=== PATIENT | female | born 1945 | race Caucasian/White ===

== ENCOUNTER 2017-04-21 09:06 | Inpatient (IN) ==
[2017-04-21] MEDS ORDERED: *HR* HYDROcodone/Acet 5/325 mg TABLET PO ONE (09:11)
--- NOTE | 2017-04-21 09:19 | Emergency Department Note ---
Disposition Clinical Impression: Left hip pain Fall Qualifiers: Encounter type: initial encounter Qualified Code(s): W19.XXXA - Unspecified fall, initial encounter Left wrist fracture Qualifiers: Encounter type: initial encounter Fracture type: closed Qualified Code(s): S62.102A - Fracture of unspecified carpal bone, left wrist, initial encounter for closed fracture Disposition: Home, Self-Care Condition: Good Instructions: Fall Prevention for Older Adults (ED) Reasons to Return/Additional Instructions: Please follow closely with your primary care provider. Please take all medications as they are prescribed. If you are concerned about your medical condition or if your symptoms change please return immediately to the emergency room for repeat evaluation. Please follow the return precautions that were discussed in great detail here in the emergency room prior to you being discharged home. Please take all of your home medications as they are prescribed. Please use rest ice elevation and then a compressive dressing was applied. Please follow-up with the orthopedic physician for outpatient evaluation and casting Referrals: NO,PCP [Primary Care Provider] - [facility] [Outside] [facility] [Outside] Hiram Gil MD [Partnered Physician] - Forms: ED Satisfaction Letter Time of Disposition: 09:57 Fall HPI - General Chief Complaint: ED Fall Stated Complaint: fall Time Seen by Provider: 04/21/17 09:09 Source: EMS Mode of arrival: EMS Limitations: no limitations Nursing Notes Reviewed: Yes Vital Signs Reviewed: Yes - History of Present Illness HPI Narrative: Patient presents emergency room after falling at home. She was walking across her kitchen and tripped over carpet falling hitting her left hip and left wrist. She is injured ribs in the past and required surgery. She was concerned because she had pain with movement and wanted to be evaluated. No other symptoms or complaints at this time Onset (ago): Just MEDICAL COLLECTIONS REPRESENTATIVE Fall From: standing Fall Witnessed: yes Place Fall Occurred: home Loss of Consciousness: none Prolonged Down Time?: no Symptoms Prior to Fall: none Context: tripped/slipped Location of injury - extremities: Left: hand, hip Severity: mild Quality: aching Associated symptoms (after fall): Reports: denies - Related Data Home Medications Medication Instructions Recorded Confirmed Albuterol Sulfate [Albuterol 90 mcg IH Q4HR PRN 06/15/15 01/31/17 Inhaler] Budesonide/Formoterol 160/4.5 2 puff IH BIDR 06/15/15 01/31/17 [Symbicort 160/4.5] Duloxetine HCl [Cymbalta] 60 mg PO DAILY 06/15/15 01/31/17 Gabapentin [Neurontin] 300 mg PO TID 06/15/15 01/31/17 Nitroglycerin [Nitrostat] 0.4 mg SL Q5M PRN 06/15/15 01/31/17 Bisacodyl [Dulcolax] 5 mg PO DAILY PRN 03/22/16 01/31/17 Fenofibrate Nanocrystallized 145 mg PO DAILY 03/22/16 01/31/17 [Tricor] Lisinopril [Zestril] 20 mg PO BID 03/22/16 01/31/17 Oxycodone HCl 5 mg PO Q6H PRN 03/22/16 01/31/17 Omeprazole [PriLOSEC] 40 mg PO BID 05/18/16 01/31/17 Previous Rx's Medication Instructions Recorded Aspirin 81 mg PO DAILY #30 tab.chew 02/04/16 Atorvastatin [Lipitor] 40 mg PO HS #30 tablet 02/04/16 Ranolazine [Ranexa] 500 mg PO BID #60 tab.er.12h 05/21/16 Isosorbide MONOnitrate (24 HR) 120 mg PO DAILY #60 tab.er.24h 05/24/16 [Imdur] Metoprolol Succinate 100 mg PO DAILY #30 tab.er.24h 05/24/16 cloNIDine HCl [CloNIDine HCl] 0.2 mg PO Q8H #90 tablet 08/19/16 Azithromycin [Azithromycin 6-Tab 250 mg PO PER PKG DI #6 tab 01/31/17 Pack] Allergies Allergy/AdvReac Type Severity Reaction Status Date / Time Erythromycin Base Allergy Vomiting Verified 01/31/17 12:14 Penicillins [PCN] Allergy Rash Verified 01/31/17 12:14 codeine AdvReac Nausea Verified 01/31/17 12:14 indapamide [From Lozol] AdvReac See Verified 01/31/17 12:14 Comments All systems ED: reviewed and negative except as stated. Constitutional: Denies: fever, chills Cardiovascular: Denies: chest pain, palpitations, dyspnea on exertion Respiratory: Denies: cough, dyspnea, wheezes Gastrointestinal: Denies: nausea, vomiting, diarrhea Musculoskeletal: Denies: back pain Neurological: Denies: headache Hematological/Lymphatic: Denies: easy bleeding Allergic/Immunologic: Denies: facial swelling, urticaria Fall PMH - Past Medical History Medical history: Reports: atrial fibrillation, CHF, COPD, coronary artery disease, diabetes, GERD, hyperlipidemia, hypertension, myocardial infarction Surgical history: Reports: angioplasty/stent, appendectomy, hysterectomy, other Psychiatric history: Reports: depression 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 Absent: tenderness - Chest Chest inspection: Present: normal inspection, symmetric chest wall rise. Absent : tenderness - Respiratory Respiratory exam: Present: normal lung sounds bilaterally - Cardiovascular Cardiovascular exam: Present: regular rate, normal rhythm, normal heart sounds - Abdominal Exam Abdominal exam: Present: soft, Non-Tender, normal bowel sounds. Absent: tenderness, distention, guarding, rebound, rigidity - Extremities Exam Extremities exam: Present: normal inspection, full ROM, tenderness, normal capillary refill, pedal edema (+2 to the knee) - Back Exam Back exam: Present: normal inspection, full ROM, tenderness - Neurological Exam Neurological exam: Present: alert, oriented X3, CN II-XII intact - Skin Skin exam: Present: warm, dry, intact, normal color Course Course Narrative: Patient seen and examined at the time of arrival. See history of present illness. 71-year-old female presents from home by EMS for evaluation of a mechanical fall. Walking across her kitchen today she tripped on a carpet falling sideways hitting her left wrist and her left hip on the ground. Patient denies any other symptoms or issues prior to the event today. She denied lightheadedness, chest pain, palpitations, recent illnesses, fevers, chills, nausea vomiting or diarrhea, chest pain or shortness of breath. On presentation here patient is alert and oriented 3 speaking in full sentences. She has no visible signs of traumatic injury no bleeding noted on exam. She has her left wrist wrapped and she was on the cot complaining of minor left hip pain. Physical exam is otherwise benign. Head is atraumatic pupils are equal round and reactive to light. Patient opens and closes the jaw without any issue. She has no midline tenderness to the cervical thoracic or lumbar spine. She moves her neck in full range of motion flexion extension with no pain. She has no tenderness over the bilateral shoulder girdle shows full range of motion of the shoulders and elbows and the right wrist. Left wrist is limited range of motion secondary to discomfort but no other visible deformity or injury. Pulses and sensation are intact in all 4 extremities. The chest wall does not show any crepitus or deformity her heart and lungs are clear. Abdomen is soft nontender nondistended. Pelvis appears to be stable left hip has tenderness over the medial aspect of the groin area but no gross deformity or injury. Patient has normal straight leg raise bilaterally. She has pitting edema +2 up to the knee but does not describe this as being abnormal for her. No other visible signs of trauma or injury at this point. Patient will have imaging of the head secondary to unknown head injury even though she does not have loss of consciousness. She was on a blood thinner but supposedly it stopped 6 months ago. Patient will imaging of the left wrist in the left hip to address any other underlying etiology. Patient is resting comfortably in bed at this time. First dose oral pain medication given. Patient also EKG looking for other underlying cardiac etiology otherwise stable exam Blood pressure was elevated on presentation but she did not take her home meds. Disposition pending workup and treatment course. The patient confirmed the previous history of present illness - Reevaluation(s) Reevaluation #1: Left wrist is fractured of the distal radius and ulna. Splint reapplied. There is no specific signs of angulation is slightly impacted otherwise the joint mortise appears to be stable. Patient will be splinted and then recommended for follow-up with orthopedics. Hip and pelvis appears to be stable with a stable appearing previous hip implant. No signs of acute fracture or dislocation. Splint applied at the bedside by myself with a reverse sugar tong with good sensation intact after the event. Patient provided a sling for home. [id number] female She was advised to follow -up with orthopedics tomorrow. Patient to be ambulated at this time a shunt to take oral Tylenol and Motrin at home for symptoms as well as use ice. No narcotic to be given at this time secondary to concern for mentation and somnolence and based on the patient's age Time: 09:53 Reevaluation #2: Patient had pain with ambulation. Imaging the pelvis and the hip to be done by CT scan at this time. Time: 10:48 Reevaluation #3: Patient was unable to bear weight without significant distress and limping gait. There is concern for her falling home and not being able to use a walker secondary to the broken wrist. At this point turn patient will be admitted for pain control and therapy. Discussed this with the hospitalist Dr. Giron. No other recommendations or issues at this time. Patient will be admitted to hospital for pain control and evaluation Time: 12:40 Vital Signs Temperature 98.9 F 04/21/17 09:08 Pulse Rate 69 04/21/17 09:08 Respiratory Rate 18 04/21/17 09:08 Blood Pressure 186/96 04/21/17 09:08 O2 Sat by Pulse Oximetry 97 04/21/17 09:08 Temperature 98.9 F 04/21/17 09:08 Pulse Rate 69 04/21/17 09:08 Respiratory Rate 18 04/21/17 09:08 Blood Pressure 186/96 04/21/17 09:08 O2 Sat by Pulse Oximetry 97 04/21/17 09:08 Oxygen Delivery Oxygen Delivery Room Air Procedures - Orthopedic Splinting/Casting Injury #1 Side: left Upper Extremity Injury Location: wrist Upper Extremity Immobilizer: sugar tong splint Additional Comments: Capillary refill intact after the splint was applied she had good sensation and motor function in the affected fingers and hands Fall - MDM Narrative Medical decision making narrative: Mechanical fall, left wrist injury, left hip pain - Medical Records Medical records reviewed: Yes I reviewed the patient's medical records. - Radiology Data Radiology results reviewed: Yes I reviewed the patient's radiology results. Left distal radius and ulna fracture left hip is stable. Does not show any acute bleed or injury - EKG Data EKG attestation: Yes I reviewed and interpreted this EKG.
[2017-04-21] MEDS ORDERED: Naloxone 0.4 MG/ML INJ IVP PRN (13:26)
[2017-04-21] MEDS ORDERED: Acetaminophen 325 MG TABLET PO PRN (13:26)
[2017-04-21] MEDS ORDERED: *HR* Dextrose 50 % in Water (Syg) 50 ML SYRINGE IVP PRN (13:30)
[2017-04-21] MEDS ORDERED: Dextrose Gel 15 GM PO PRN ×2 (13:30)
[2017-04-21] MEDS ORDERED: D5% in Water 1,000 ML IVC PRN (13:30)
--- NOTE | 2017-04-21 13:48 | Internal Med History&Physical ---
Date of Encounter: 04/21/17 Time of Encounter: 13:31 Assessment and Plan (1) Hip fracture, left Current visit: Yes Status: Acute Patient suffered a mechanical fall at home landed on her left side and is complaining of left hip pain. Patient reports pain with movement, and on able to bear weight. CT of the left hip showed acute subdural traumatic nondisplaced fracture of the anterior cortex of the greater trochanter. Orthopedic surgeon consult by emergency department, reported fracture is nonsurgical. Pain control with when necessary Nunda. PT and OT consults. Follow-up with orthopedics as an outpatient Qualifiers: Encounter type: initial encounter Fracture type: closed Qualified Code(s) : S72.002A - Fracture of unspecified part of neck of left femur, initial encounter for closed fracture (2) Fall Current visit: Yes Status: Acute Patient reports she tripped over a rug in her kitchen and fell on her left side. She denies any lightheadedness or dizziness prior to fall. PT and OT consults. Qualifiers: Encounter type: initial encounter Qualified Code(s): W19.XXXA - Unspecified fall, initial encounter (3) Left wrist fracture Current visit: Yes Status: Acute Patient suffered a mechanical fall at home, reporting pain in her left wrist. X -ray of the left wrist showed a transverse mildly displaced fracture of the distal radial metaphysis and nondisplaced fracture of the distal ulnar metaphysis. Patient's arm was splinted and wrapped by the emergency department. She has sensation movement and capillary refill in fingers of left hand. Pain control with when necessary Nunda. Follow-up with orthopedics as an outpatient. Qualifiers: Encounter type: initial encounter Fracture type: closed Qualified Code(s) : S62.102A - Fracture of unspecified carpal bone, left wrist, initial encounter for closed fracture (4) DM (diabetes mellitus), type 2 Current visit: Yes Status: Chronic Well controlled with hemoglobin A1c of 8.7 at last check in November. Recheck hemoglobin A1c. Patient reports she is "trying to get away from taking insulin " and watching what she eats. Check blood sugars before meals at bedtime Diabetic heart healthy diet Sliding scale insulin before meals at bedtime Hypoglycemic protocol Qualifiers: Diabetes mellitus complication status: with kidney complications Diabetes mellitus complication detail: with chronic kidney disease Diabetes mellitus half-way insulin use: unspecified medical terminologist insulin use status Chronic kidney disease stage: stage 3 (moderate) Qualified Code(s): E11.22 - Type 2 diabetes mellitus with diabetic chronic kidney disease; N18.3 - Chronic kidney disease, stage 3 (moderate) (5) Hypertension Current visit: Yes Status: Chronic Patient's blood pressure not well-controlled on arrival, however patient did not take her morning medications, and pain may have been contributing. Continue home doses of medications and continue to monitor blood pressure. Qualifiers: Hypertension type: essential hypertension Qualified Code(s): I10 - Essential (primary) hypertension (6) Tobacco abuse Current visit: Yes Status: Chronic Patient continues to smoke 1 pack per day. Smoking cessation encouraged. Patient not ready to quit at this time. Nicotine patch, smoking cessation education ordered. (7) History of GI bleed Current visit: No Status: Resolved (8) DVT prophylaxis Current visit: Yes Status: Acute sequential compression devices Patient with recent history of GI bleed, and will not give pharmacologic prophylaxis. Internal Medicine - H&P: HPI Chief complaint: fall, left wrist and left hip pain Admitted From: Emergency Dept Plans for Post Hospital Care: Home History of present illness: Ms. Nur is a 71 year old female with hypertension, hyperlipidemia, type 2 diabetes, coronary artery disease status post stent placement, atrial fibrillation, COPD, CHF, CAD, history of GI bleed presented to the emergency department today after suffering a mechanical fall at home, and complaining of pain in her left wrist and left hip. Patient reports that she was walking in her kitchen and tripped over a rug, and had immediate pain in her left hip, little bit later she noticed that her left wrist was hurting as well. She denies any lightheadedness, chest pain, palpitations, shortness of breath, nausea, vomiting, abdominal pain, fever, chills, sweats. Evaluation in the emergency department included a left wrist x-ray which showed transverse mildly displaced fracture of the distal radial metaphysis as well as nondisplaced fracture of the distal ulnar metaphysis. X-ray of the hips was stable, however when patient ambulated she was having pain and was unable to bear weight so a CT of that left hip was obtained. CT showed acute saddle traumatic nondisplaced fracture of anterior cortex of the greater trochanter. Dr. Gil of orthopedics was consulted and reviewed the images and felt these were nonsurgical fractures. Patient admitted for pain control, and risk of falls. On exam, patient resting comfortably, in no acute distress. She is alert and oriented. Heart has regular rate and rhythm, lungs are clear bilaterally to auscultation. Her left wrist is splinted and wrapped, she does have sensation, movement and capillary refill in her left fingertips. She has trace edema in bilateral lower extremities. Mild tenderness to palpation over left hip. She reports increased pain and movement of her left hip. Past Med Surg Social Fam HX - Past Medical History Medical history: atrial fibrillation, CHF, COPD, coronary artery disease, diabetes, GERD, hyperlipidemia, hypertension, myocardial infarction, renal disease Psychiatric history: depression - Past Surgical History Surgical History: angioplasty/stent, appendectomy, hysterectomy, orthopedic, other (back, ankle), other - Social History Smoking Status: Current every day smoker Packs per day: 1 Smokeless Tobacco Status: No Alcohol use: none Drug use: none - Family History Father Adopted: No Family Member Ethnicity: Non- Living Status: Hx Family Cardiac Disorders: Yes (heart disease and heart attack) Hx Family Respiratory Disorders: Yes Hx Family Cancer: Yes (Lung cancer) Hx Family GI Disorders: No Hx Family Endocrine Disorder: Yes Hx Family Neuromuscular Disorders: No Hx Family Neurologic Disorders: No Hx Family HEENT Disorders: No Hx Family Autoimmune Disorders: No Mother Adopted: No Living Status: Hx Family Cardiac Disorders: Yes Hx Family Endocrine Disorder: Yes (Diabetes) Internal Medicine - H&P: Meds Albuterol Sulfate [Albuterol Inhaler] 90 mcg IH Q4HR PRN 06/15/15 [History] Budesonide/Formoterol 160/4.5 [Symbicort 160/4.5] 2 puff IH BIDR 06/15/15 [ History] Duloxetine HCl [Cymbalta] 60 mg PO DAILY 06/15/15 [History] Gabapentin [Neurontin] 300 mg PO TID 06/15/15 [History] Nitroglycerin [Nitrostat] 0.4 mg SL Q5M PRN 06/15/15 [History] Aspirin 81 mg PO DAILY #30 tab.chew 02/04/16 [Rx] Atorvastatin [Lipitor] 40 mg PO HS #30 tablet 02/04/16 [Rx] Fenofibrate Nanocrystallized [Tricor] 145 mg PO DAILY 03/22/16 [History] Oxycodone HCl 5 mg PO Q6H PRN 03/22/16 [History] Omeprazole [PriLOSEC] 40 mg PO BID 05/18/16 [History] Metoprolol Succinate 100 mg PO DAILY #30 tab.er.24h 05/24/16 [Rx] Allergies Erythromycin Base Allergy (Verified 01/31/17 12:14) Vomiting Penicillins [PCN] Allergy (Verified 01/31/17 12:14) Rash codeine Adverse Reaction (Verified 01/31/17 12:14) Nausea indapamide [From Lozol] Adverse Reaction (Verified 01/31/17 12:14) See Comments All Systems PM: A 10-system review of systems was performed and is negative for pertinent findings except as documented above in the HPI. - Constitutional Constitutional: falls, no chills, no fever(s), no night sweats - EENT Eyes: no change in vision, no discharge, no pain, no photophobia Ears: no ear discharge, no ear pain, no tinnitus Nose, mouth and throat: no dysphagia, no nasal discharge, no neck pain, no sore throat - Cardiovascular Cardiovascular ROS IM: no chest pain, no diaphoresis, no dyspnea, no lightheadedness, no palpitations, no syncope - Respiratory Respiratory: no cough, no dyspnea, no wheezing, no excessive phlegm production - Gastrointestinal Gastrointestinal: no abdominal pain, no diarrhea, no hematemesis, no hematochezia, no melena, no nausea, no vomiting - Genitourinary Genitourinary: no change in urinary stream, no dysuria, no flank pain, no hematuria - Musculoskeletal Musculoskeletal ROS IM: no numbness, no tingling Additional comments: Pain in left wrist and left hip - Integumentary Integumentary IM: no rash, no unusual bruising - Neurological Neurological ROS: no confusion, no convulsions, no focal weakness, no numbness, no tingling, no tremor(s) - Hematologic/Lymphatic Hematologic/Lymphatic: no easy bruising - Constitutional Vitals: Temp Pulse Resp BP Pulse Ox 98.9 F 63 18 189/97 97 04/21/17 09:08 04/21/17 12:56 04/21/17 12:56 04/21/17 12:56 04/21/17 12:56 General appearance: Present: A&O X 3, pleasant, no acute distress - Head Head exam: Present: atraumatic, normocephalic - Eye Eye exam: Present: PERRL, conjuntiva pink, sclera anicteric Pupils: Present: PERRL - Neck Neck exam general surgery: Present: supple, trachea midline. Absent: lymphadenopathy - Respiratory Respiratory exam: Present: CTAB. Absent: accessory muscle use, rales, rhonchi, wheezes - Cardiovascular Cardiovascular exam: Present: RRR, +S1, +S2. Absent: diastolic murmur, gallop, rubs, systolic murmur - GI/Abdominal GI/Abdominal exam: Present: normal bowel sounds, soft, no peritoneal signs. Absent: distended, tenderness - Extremities Exam Extremities exam: Present: pedal edema (trace bilateral), warm, radial pulses palpable and symetrical. Absent: calf tenderness, cyanotic - Neurological Exam Neurological exam: Present: CN II-XII intact, oriented X3, no focal deficits. Absent: pronater drift, facial droop, speech deficit - Skin Skin exam: Present: dry, intact Additional comments: left arm splinted. Positive sensation, movement and capillary refill of left fingers and thumb. Internal Med - H&P Results - Labs CBC & Chem 7: 04/21/17 14:22 04/21/17 14:22 - Diagnostic Studies Other Images Additional comments: Head CT 04/21/17 09:10 IMPRESSION: No acute intracranial abnormality. D/ / Kurt Dominguez MD / Kurt Dominguez MD Interpreting Provider: Kurt Dominguez MD Hip X-Ray 04/21/17 09:10 IMPRESSION: Remote ORIF of the left hip without acute fracture or dislocation. D/ / Neymar Mason MD / Neymar Mason MD Interpreting Provider: Neymar Mason MD Wrist X-Ray 04/21/17 09:10 IMPRESSION: 1. Transverse, mildly displaced fracture of the distal radial metaphysis. 2. Nondisplaced fracture of the distal ulnar metaphysis. D/ / 04/21/2017 09:34:44 Dom Clark MD / zeeshan Interpreting Provider: Dom Clark MD Hip CT 04/21/17 10:25 IMPRESSION: Status post revision of previous ORIF of a proximal left femoral fracture with healed fracture deformity of the proximal femur. Acute subtle traumatic nondisplaced fracture of the anterior cortex of the greater trochanter of the left hip which may involve the component of the intramedullary femoral lenka extending into the greater trochanter. Ununited fractures of the greater trochanter of the right hip incompletely imaged. No significant change in alignment compared to prior CT examination. Infrarenal abdominal aortic aneurysm. Please see follow-up recommendations below. RECOMMENDATIONS: Managing Abdominal Aortic Aneurysms 2.6-2.9 cm: 5 year follow up. Reference: Jailene et al. The care of patients with an abdominal aortic aneurysm: The Society of Vascular Surgery practice guidelines. Journal of Vascular Surgery. Vol 50, Number 85. Tristan et al. Managing Incidental Findings on Abdominal and Pelvic CT and MRI, Part 2: White Paper of the ACR Incidental Findings Committee II on Vascular Findings. J Am Lowell Radiol 2013;10:789-794 D/ / 04/21/2017 11:42:25 Neymar Mason MD / zeeshan Interpreting Provider: Neymar Mason MD
[2017-04-21 14:43] LABS: Basophils # 0.1 K/mcL (0.0-0.2); Basophils % 0.6 %; Eosinophils # 0.8 K/mcL (0.0-0.6); Hematocrit 33.1 % (35.3-44.9); Hemoglobin 10.4 g/dL (11.5-15.4); Immature Granulocytes % 0.6 % (0-4); Immature Platelets 3.6 % (1.1-6.1); Lymphocytes # 2.1 K/mcL (0.6-4.6); Lymphocytes % 15.9 %; Mean Corpuscular HGB Conc 31.4 g/dL (31.6-35.5); Mean Corpuscular Hemoglobin 27.7 pg (28.0-33.3); Mean Corpuscular Volume 88.3 fL (83.0-100.0); Mean Platelet Volume 10.6 fL (9.4-12.4); Monocytes # 0.9 K/mcL (0.0-1.3); Monocytes % 6.9 %; Neutrophils # 9.1 K/mcL (1.6-8.9); Nucleated Red Blood Cells 0.2 /100 WBC (0); Platelet Count 368 K/mcL (140-400); Red Blood Count 3.75 M/mcL (3.82-4.97); Red Cell Distribution Width 14.8 % (11.5-14.5)
[2017-04-21 14:55] LABS: Hemoglobin A1C 9.7 %
[2017-04-21 14:57] LABS: Calcium 9.3 mg/dL (8.6-10.8); Potassium 4.4 mEq/L (3.5-4.5)
[2017-04-21] MEDS: Nicotine 21 MG PATCH.TD24 TD SCH (16:02)
[2017-04-21] MEDS: cloNIDine HCl 0.1 MG TABLET PO SCH ×2 (16:02→23:59)
[2017-04-21] MEDS: Lisinopril 20 MG TABLET PO SCH ×2 (16:03→20:27)
[2017-04-21] MEDS: Metoprolol XL (24 HR) Succ 50 MG TAB.ER.24H PO SCH (16:03)
[2017-04-21] MEDS: Isosorbide MONOnitrate (24 HR) 60 MG TAB.ER.24H PO SCH (16:03)
[2017-04-21] MEDS ORDERED: Nitroglycerin 0.4 MG TAB.SUBL SL PRN (16:43)
[2017-04-21] MEDS: Insulin LISPRO 300 UNITS/3 ML VIAL SQ SCH ×2 (16:46→20:20)
[2017-04-21] MEDS: Gabapentin 300 MG CAPSULE PO SCH (20:27)
[2017-04-21] MEDS: Budesonide/Formoterol 160/4.5 MDI IH SCH (21:35)
[2017-04-22] MEDS: *HR* HYDROcodone/Acet 5/325 mg TABLET PO PRN ×3 (01:43→16:56)
[2017-04-22 04:32] LABS: Basophils # 0.1 K/mcL (0.0-0.2); Basophils % 0.5 %; Eosinophils # 0.8 K/mcL (0.0-0.6); Eosinophils % 7.6 %; Hematocrit 26.6 % (35.3-44.9); Hemoglobin 8.3 g/dL (11.5-15.4); Immature Granulocytes % 0.4 % (0-4); Lymphocytes # 1.7 K/mcL (0.6-4.6); Lymphocytes % 15.5 %; Mean Corpuscular HGB Conc 31.2 g/dL (31.6-35.5); Mean Corpuscular Hemoglobin 27.6 pg (28.0-33.3); Mean Corpuscular Volume 88.4 fL (83.0-100.0); Mean Platelet Volume 10.9 fL (9.4-12.4); Monocytes % 9.2 %; Neutrophils # 7.1 K/mcL (1.6-8.9); Nucleated Red Blood Cells 0.2 /100 WBC (0); Platelet Count 278 K/mcL (140-400); Red Blood Count 3.01 M/mcL (3.82-4.97); Red Cell Distribution Width 14.8 % (11.5-14.5); Segmented Neutrophils % 66.8 %
[2017-04-22 04:48] LABS: Calcium 8.4 mg/dL (8.6-10.8); Potassium 4.6 mEq/L (3.5-4.5)
[2017-04-22] MEDS: Nicotine 21 MG PATCH.TD24 TD SCH (07:48)
[2017-04-22] MEDS: Fenofibrate 54 MG TABLET PO SCH (07:51)
[2017-04-22] MEDS: Gabapentin 300 MG CAPSULE PO SCH ×2 (07:52→20:28)
[2017-04-22] MEDS: Lisinopril 20 MG TABLET PO SCH (07:52)
[2017-04-22] MEDS: Isosorbide MONOnitrate (24 HR) 60 MG TAB.ER.24H PO SCH (07:53)
[2017-04-22] MEDS: Aspirin 81 MG TAB.CHEW PO SCH (07:53)
[2017-04-22] MEDS: Insulin LISPRO 300 UNITS/3 ML VIAL SQ SCH ×4 (08:00→20:29)
[2017-04-22] MEDS: Metoprolol XL (24 HR) Succ 50 MG TAB.ER.24H PO SCH (08:02)
[2017-04-22] MEDS: cloNIDine HCl 0.1 MG TABLET PO SCH (08:02)
[2017-04-22] MEDS ORDERED: Metoprolol XL (24 HR) Succ 50 MG TAB.ER.24H PO SCH (09:39)
[2017-04-22] MEDS: Budesonide/Formoterol 160/4.5 MDI IH SCH ×2 (11:02→20:51)
--- NOTE | 2017-04-22 14:44 | Internal Med Progress Note ---
Date of Encounter: 04/22/17 Time of Encounter: 08:30 - Assessment and plan (1) Left wrist fracture Current Visit: Yes Status: Acute Assessment and plan: Reviewed X ray s/p Splint ..Cont splint for now.. try to switch her to PO pain meds need ot f/u Ortho as an ut pt for further eval Patient does need to stay in the hospital more than 2 midnights due to her complex medical problems with worsening kidney failure and anemia. So we will change her to full admission today. I did review my colleague Ms. Dora Hart SECURITY CONTROL ASSESSOR's H & P including HPI, PMH, PSH, FH, SH, and ROS no changes noticed Qualifiers: Encounter type: initial encounter Fracture type: closed Qualified Code(s) : S62.102A - Fracture of unspecified carpal bone, left wrist, initial encounter for closed fracture (2) Hip fracture, left Current Visit: Yes Status: Acute Assessment and plan: Reviewed CT of Pelvis -showing acute subtle traumatic non displaced fracture of the anterior cortex of the greater trochanter of the left hip which may involve the component of the intra medullar femoral lenka extending into the greater trochanter. Ununited fractures of the greater trochanter of the right hip incompletely imaged Talked to Ortho Dr. Gil about this findings, he recommend conservative therapy with PT / OT and Pain management Recommend weaght baring i both legs as she tolerates PT / OT working with pt. Qualifiers: Encounter type: initial encounter Fracture type: closed Qualified Code(s) : S72.002A - Fracture of unspecified part of neck of left femur, initial encounter for closed fracture (3) Acute kidney injury superimposed on chronic kidney disease Current Visit: No Status: Acute Assessment and plan: mostly due to dehydration nd medication held Lasix and Lisinopril started on gentle IV hdyration trend on Cr closely (4) Chronic anemia Current Visit: No Status: Chronic Assessment and plan: She does have chronic anemia with Hb stays around 9 mostly iron def anemia / chronic disease related anemia with CKD-3 however her current hb dropped down to 8.3 from 10.4 with no IVF So cont close monitoring due to hip fx will check another Hb /Hct tonight and AM resumed FeSo4 (5) COPD (chronic obstructive pulmonary disease) Current Visit: No Status: Chronic Qualifiers: COPD type: unspecified COPD Qualified Code(s): J44.9 - Chronic obstructive pulmonary disease, unspecified (6) DM (diabetes mellitus), type 2 Current Visit: Yes Status: Chronic Assessment and plan: Pt does need lot of education due to her non compliance placed her on ISS + Levemir 20 U Qualifiers: Diabetes mellitus complication status: with kidney complications Diabetes mellitus complication detail: with chronic kidney disease Diabetes mellitus termite treater helper insulin use: unspecified termite treater helper insulin use status Chronic kidney disease stage: stage 3 (moderate) Qualified Code(s): E11.22 - Type 2 diabetes mellitus with diabetic chronic kidney disease; N18.3 - Chronic kidney disease, stage 3 (moderate) (7) Tobacco abuse Current Visit: Yes Status: Chronic Assessment and plan: counseled to quit..placed her on nicotine patches (8) Hypertension Current Visit: Yes Status: Chronic Assessment and plan: So much discrepency regarding her medications able to get recent updated medication list from PCP s changed the meds now to Metoprolol XL 50mg ..Held lisinopril due to LOUANN Placed / continued her on Imdur at 120 due to her CAD Qualifiers: Hypertension type: essential hypertension Qualified Code(s): I10 - Essential (primary) hypertension - Time Spent With Patient Greater than 35 minutes - Subjective Interval history: Ms. Nur is a 71 year old female with hypertension, hyperlipidemia, type 2 diabetes, coronary artery disease status post stent placement, atrial fibrillation, COPD, CHF, CAD, history of GI bleed presented to the emergency department y/d after suffering a mechanical fall at home, and complaining of pain in her left wrist and left hip. Evaluation in the emergency department included a left wrist x-ray which showed transverse mildly displaced fracture of the distal radial metaphysis as well as non displaced fracture of the distal ulnar metaphysis. X-ray of the hips was stable, however when patient ambulated she was having pain and was unable to bear weight so a CT of that left hip was obtained. CT showed acute saddle traumatic non displaced fracture of anterior cortex of the greater trochanter. Dr. Gil of orthopedics was consulted and reviewed the images and felt these were nonsurgical fractures. Patient admitted for pain control, and risk of falls. Pt pain is tolerable with current meds. She denied any CP / SOB - Constitutional Vitals: Temp Pulse Resp BP Pulse Ox 97.5 F L 55 16 127/51 95 04/22/17 10:56 07/17/17 10:56 04/22/17 11:02 04/22/17 10:56 04/22/17 11:02 General appearance: Present: A&O X 3, pleasant, no acute distress - Respiratory Respiratory exam: Present: decreased breath sounds, wheezes. Absent: rales, respiratory distress, rhonchi - Cardiovascular Cardiovascular exam: Present: +S1, +S2. Absent: diastolic murmur, gallop, systolic murmur - GI/Abdominal GI/Abdominal exam: Present: normal bowel sounds, soft. Absent: distended, guarding, tenderness - Extremities Exam Additional comments: Splint is on over Left fore arm and wrist.. able to wigle her left hand fingers..sensation + distally over left hand Lower extremities ROM - slightly limted in left hip due to pain, otherwise no significant motor deficits noticed in both LE - Psychiatric Psychiatric exam: Present: normal affect, normal mood Internal Medicine: Result - Labs CBC & Chem 7: 04/22/17 03:43 04/22/17 03:43 Labs: Short CBC 04/21/17 04/22/17 Range/Units 14:22 03:43 WBC 13.0 H 10.7 (4.3-11.1) K/mcL Hgb 10.4 L 8.3 L D (11.5-15.4) g/dL Hct 33.1 L 26.6 L (35.3-44.9) % Plt Count 368 278 (140-400) K/mcL Neutrophils # 9.1 H 7.1 (1.6-8.9) K/mcL BMP 04/21/17 04/22/17 14:22 03:43 Sodium 141 136 Potassium 4.4 4.6 H Chloride 108 106 Carbon Dioxide 25 27 BUN 25 H 30 H Creatinine 1.97 H 2.37 H Glucose 250 H 206 H Calcium 9.3 8.4 L Consult Discharge Plan - Plan Referrals: Mickey Samano MD [Primary Care Provider] -
--- NOTE | 2017-04-22 15:21 | Electrocardiograph Report ---
[place] [id number] Test Date: 2017-04-21 Pat Name: Jennifer Nur Department: 104 Room: 3A12 Gender: F Carrier Blower: SAURABH : 1945 Requested By: Keon Bingham Order Number: [id number] Reading MD: Rah Cornell MD Measurements Intervals [place] Rate: 63 P: 54 MI: 163 QRS: 29 QRSD: 99 T: -40 QT: 424 QTc: 432 Interpretive Statements SINUS RHYTHM LEFT VENTRICULAR HYPERTROPHY AND ST-T CHANGE Electronically Signed On 04-22-2017 15:19:30 EDT by Rah Cornell MD
[2017-04-22 18:08] LABS: Hematocrit 26.8 % (35.3-44.9); Hemoglobin 8.5 g/dL (11.5-15.4)
[2017-04-23] MEDS: *HR* HYDROcodone/Acet 5/325 mg TABLET PO PRN ×2 (02:02→09:10)
[2017-04-23 04:41] LABS: Basophils # 0.1 K/mcL (0.0-0.2); Basophils % 0.7 %; Eosinophils # 0.8 K/mcL (0.0-0.6); Eosinophils % 7.9 %; Hematocrit 25.8 % (35.3-44.9); Hemoglobin 8.3 g/dL (11.5-15.4); Immature Granulocytes % 0.8 % (0-4); Immature Platelets 4.3 % (1.1-6.1); Lymphocytes # 2.2 K/mcL (0.6-4.6); Lymphocytes % 20.7 %; Mean Corpuscular HGB Conc 32.2 g/dL (31.6-35.5); Mean Corpuscular Hemoglobin 27.9 pg (28.0-33.3); Mean Corpuscular Volume 86.6 fL (83.0-100.0); Mean Platelet Volume 11.3 fL (9.4-12.4); Monocytes # 1.1 K/mcL (0.0-1.3); Monocytes % 10.4 %; Neutrophils # 6.3 K/mcL (1.6-8.9); Platelet Count 265 K/mcL (140-400); Red Blood Count 2.98 M/mcL (3.82-4.97); Red Cell Distribution Width 14.9 % (11.5-14.5); Segmented Neutrophils % 59.5 %
[2017-04-23 05:38] LABS: Calcium 8.7 mg/dL (8.6-10.8); Magnesium 1.5 mg/dL (1.6-2.6); Potassium 4.9 mEq/L (3.5-4.5)
[2017-04-23] MEDS: Nicotine 21 MG PATCH.TD24 TD SCH (08:07)
[2017-04-23] MEDS: Insulin LISPRO 300 UNITS/3 ML VIAL SQ SCH ×2 (08:07→12:25)
[2017-04-23] MEDS: Fenofibrate 54 MG TABLET PO SCH (08:08)
[2017-04-23] MEDS: Gabapentin 300 MG CAPSULE PO SCH (08:08)
[2017-04-23] MEDS: Isosorbide MONOnitrate (24 HR) 60 MG TAB.ER.24H PO SCH (08:08)
[2017-04-23] MEDS: Aspirin 81 MG TAB.CHEW PO SCH (08:09)
[2017-04-23] MEDS: Budesonide/Formoterol 160/4.5 MDI IH SCH (08:12)
--- NOTE | 2017-04-23 10:56 | Discharge Summary ---
Date of Encounter: 04/23/17 Time of Encounter: 10:20 - Discharge Diagnosis (1) Hip fracture, left Priority: Primary Status: Acute Qualifiers: Encounter type: initial encounter Fracture type: closed Qualified Code(s) : S72.002A - Fracture of unspecified part of neck of left femur, initial encounter for closed fracture (2) Left wrist fracture Priority: Secondary Status: Acute Qualifiers: Encounter type: initial encounter Fracture type: closed Qualified Code(s) : S62.102A - Fracture of unspecified carpal bone, left wrist, initial encounter for closed fracture (3) Acute kidney injury superimposed on chronic kidney disease Priority: Secondary Status: Acute (4) COPD (chronic obstructive pulmonary disease) Priority: Secondary Status: Chronic Qualifiers: COPD type: unspecified COPD Qualified Code(s): J44.9 - Chronic obstructive pulmonary disease, unspecified (5) DM (diabetes mellitus), type 2 Priority: Secondary Status: Chronic Qualifiers: Diabetes mellitus complication status: with kidney complications Diabetes mellitus complication detail: with chronic kidney disease Diabetes mellitus fci insulin use: unspecified fci insulin use status Chronic kidney disease stage: stage 3 (moderate) Qualified Code(s): E11.22 - Type 2 diabetes mellitus with diabetic chronic kidney disease; N18.3 - Chronic kidney disease, stage 3 (moderate) (6) Hypertension Priority: Secondary Status: Chronic Qualifiers: Hypertension type: essential hypertension Qualified Code(s): I10 - Essential (primary) hypertension (7) Tobacco abuse Priority: Secondary Status: Chronic - Discharge Medications Prescriptions: HYDROcodone/Acet 5/325 mg [[place] 5-325 mg] 1 tab PO Q4HR PRN #14 tab PRN Reason: Moderate Pain (4-6) Acetaminophen [8 Hour] 650 mg PO Q8H PRN #30 tablet.er PRN Reason: Mild To Moderate Pain Home Medications: Albuterol Sulfate [Albuterol Inhaler] 90 mcg IH Q4HR PRN 06/15/15 [History] Budesonide/Formoterol 160/4.5 [Symbicort 160/4.5] 2 puff IH BIDR 06/15/15 [ History] Duloxetine HCl [Cymbalta] 60 mg PO DAILY 06/15/15 [History] Gabapentin [Neurontin] 300 mg PO TID 06/15/15 [History] Nitroglycerin [Nitrostat] 0.4 mg SL Q5M PRN 06/15/15 [History] Aspirin 81 mg PO DAILY #30 tab.chew 02/04/16 [Rx] Atorvastatin [Lipitor] 40 mg PO HS #30 tablet 02/04/16 [Rx] Fenofibrate Nanocrystallized [Tricor] 145 mg PO DAILY 03/22/16 [History] Omeprazole [PriLOSEC] 40 mg PO BID 05/18/16 [History] Lisinopril [Zestril] 20 mg PO BID 04/22/17 [History] Metoprolol XL (24 HR) Succ [Toprol Xl] 50 mg PO DAILY 04/22/17 [History] Acetaminophen [8 Hour] 650 mg PO Q8H PRN #30 tablet.er 04/23/17 [Rx] HYDROcodone/Acet 5/325 mg [[place] 5-325 mg] 1 tab PO Q4HR PRN #14 tab 04/23/17 [ Rx] Allergies/Adverse Reactions: Allergies Erythromycin Base Allergy (Verified 01/31/17 12:14) Vomiting Penicillins [PCN] Allergy (Verified 01/31/17 12:14) Rash codeine Adverse Reaction (Verified 01/31/17 12:14) Nausea indapamide [From Lozol] Adverse Reaction (Verified 01/31/17 12:14) See Comments Date of admission: 04/22/17 16:28 Primary care physician: Mickey Samano MD Consults: 04/21/17 12:24 Consult to Orthopedic Surgery [CONS] Stat Consulting Provider: Orthoped[facility] Reason for Consult: fall, wrist fx, left hip pain unsteady gate Call Completed: Yes 04/21/17 13:27 Consult to Physical Therapy [CONS] Routine Comment: Evaluate, develop and implement POC Reason for Consult: fall at home, hip fracture and wrist fracture, both non- surgical. 04/21/17 13:29 Consult to Occupational Therapy [CONS] Routine Comment: Evaluate, develop and implement POC Reason for Consult: fall at home, hip fracture and wrist fracture, both non- surgical. Discharging clinician: [place] Tam Anticipated date of discharge: 04/23/17 - Patient Status Disposition: Home Health Service Condition: Good Functional capacity at discharge: uses cane/walker Overall status at discharge: patient is progressing back to baseline - Discharge Instructions Instructions: Hydrocodone/Acetaminophen (By mouth), Diabetes Mellitus Type 2 in Adults (DC), Chronic Hypertension (DC), Fall Prevention (DC) Follow Up With: Mickey Samano MD [Primary Care Provider] - 05/01/17 1:20 pm (in 1-2 weeks) Omid Teran DO [Partnered Physician] - 05/02/17 1:10 pm Additional Instructions: Follow up with Orthopedics in 1- 2 weeks - Diet and Activity Activity: increase activity as tolerated Diet: low fat, low cholesterol, low salt diet Hospital course: Ms. Nur is a 71 year old female patient with a history of diabetes mellitus type 2, hypertension, chronic tobacco abuse who presented to the ERfollowing a fall resulting in left hip nondisplaced fracture and left wrist mildly displaced fracture of the distal radial metaphysis and nondisplaced fracture of the distal ulnar metaphysis. The patient's wrist was splinted in the ER and orthopedics was consulted for her left hip nondisplaced fracture. This was deemed to be nonsurgical. Patient was monitored for pain and physical therapy in the hospital and was recommended placement to skilled rehabilitation. However patient wishes to go home with home health instead. Currently patient is stable to be discharged home and will follow up with orthopedics after discharge for further management. She will receive physical therapy at home. - Time Spent with Patient Total time spent providing and/or coordinating discharge services: Less than 30 minutes (25) - Constitutional Vitals: Temp Pulse Resp BP Pulse Ox 97.8 F 70 18 174/66 94 04/23/17 08:46 04/23/17 08:46 04/23/17 08:46 04/23/17 08:46 04/23/17 08:46 General appearance: Present: A&O X 3, pleasant, no acute distress - Neck Neck exam general surgery: Present: supple, trachea midline. Absent: lymphadenopathy - Respiratory Respiratory exam: Present: CTAB. Absent: accessory muscle use, rales, rhonchi, wheezes - Cardiovascular Cardiovascular exam: Present: RRR, +S1, +S2. Absent: diastolic murmur, gallop, rubs, systolic murmur - GI/Abdominal GI/Abdominal exam: Present: normal bowel sounds, soft, no peritoneal signs. Absent: distended, tenderness - Extremities Exam Extremities exam: Present: warm, radial pulses palpable and symetrical. Absent : calf tenderness, cyanotic, pedal edema Additional comments: left upper extremity in splint - Neurological Exam Neurological exam: Present: alert, oriented X3, no focal deficits. Absent: facial droop, speech deficit - VTE Documentation of Mechanical Device: Venous foot pump, device
--- NOTE | 2017-04-23 11:04 | Physician Discharge Referral ---
Home Health/Hosp Referral Info Transfer to: Home Health Provider in Charge Post Discharge: PCP - Diagnosis (1) Hip fracture, left Priority: Primary Status: Acute (2) Left wrist fracture Priority: Secondary Status: Acute (3) Acute kidney injury superimposed on chronic kidney disease Priority: Secondary Status: Acute (4) COPD (chronic obstructive pulmonary disease) Priority: Secondary Status: Chronic (5) DM (diabetes mellitus), type 2 Priority: Secondary Status: Chronic (6) Hypertension Priority: Secondary Status: Chronic (7) Tobacco abuse Priority: Secondary Status: Chronic - Respiratory Orders Smoking Cessation: Smoking cessation has been advised. For more information, call the [place] Tobacco Quit Line at 8-713-XIUF-NOW. - Diet/Nutrition Diet/Nutrition Orders: Cardiac - Activity Activity Orders: Walker - Services Needed Following services are medically necessary services: Nursing, Physical Therapy, Occupational Therapy - Transfer Medications Prescriptions: HYDROcodone/Acet 5/325 mg [[place] 5-325 mg] 1 tab PO Q4HR PRN #14 tab PRN Reason: Moderate Pain (4-6) Acetaminophen [8 Hour] 650 mg PO Q8H PRN #30 tablet.er PRN Reason: Mild To Moderate Pain Home Medications: Albuterol Sulfate [Albuterol Inhaler] 90 mcg IH Q4HR PRN 06/15/15 [History] Budesonide/Formoterol 160/4.5 [Symbicort 160/4.5] 2 puff IH BIDR 06/15/15 [ History] Duloxetine HCl [Cymbalta] 60 mg PO DAILY 06/15/15 [History] Gabapentin [Neurontin] 300 mg PO TID 06/15/15 [History] Nitroglycerin [Nitrostat] 0.4 mg SL Q5M PRN 06/15/15 [History] Aspirin 81 mg PO DAILY #30 tab.chew 02/04/16 [Rx] Atorvastatin [Lipitor] 40 mg PO HS #30 tablet 02/04/16 [Rx] Fenofibrate Nanocrystallized [Tricor] 145 mg PO DAILY 03/22/16 [History] Omeprazole [PriLOSEC] 40 mg PO BID 05/18/16 [History] Lisinopril [Zestril] 20 mg PO BID 04/22/17 [History] Metoprolol XL (24 HR) Succ [Toprol Xl] 50 mg PO DAILY 04/22/17 [History] Acetaminophen [8 Hour] 650 mg PO Q8H PRN #30 tablet.er 04/23/17 [Rx] HYDROcodone/Acet 5/325 mg [[place] 5-325 mg] 1 tab PO Q4HR PRN #14 tab 04/23/17 [ Rx] Allergies/Adverse Reactions: Allergies Erythromycin Base Allergy (Verified 01/31/17 12:14) Vomiting Penicillins [PCN] Allergy (Verified 01/31/17 12:14) Rash codeine Adverse Reaction (Verified 01/31/17 12:14) Nausea indapamide [From Lozol] Adverse Reaction (Verified 01/31/17 12:14) See Comments Certification: Further, I certify that my clinical findings support that this patient is homebound (i.e. absences from home require considerable and taxing effort and are for medical reasons or shinto services or infrequently or short duration when for other reasons) because: Homebound Reason: Patient requires assistance of a person or device to safely leave home Attestation: My signature below is to certify that this patient is under my care and that I, or nurse practitioner, or a physician's magistrate assistant working with me, has a face-to -face encounter with this patient.
[2017-04-23 11:16] VITALS: BP 123/77
[2017-04-23] MEDS ORDERED: Lisinopril 20 MG TABLET PO SCH (21:00)
== END 2017-04-23 14:40 | disposition home health service (06) | DRG 536 ==
LOC: EMEROO 09:06 → 3ANU 09:06 → SUATTDRO 04-22 16:28
PROVIDERS: ADMIT Family Medicine; ATTEND Internal Medicine

== ENCOUNTER 2017-04-25 04:36 | Inpatient (IN) ==
[2017-04-25] MEDS ORDERED: 0.9 % Sodium Chloride 1,000 ML IVC ONE (04:46)
[2017-04-25] MEDS ORDERED: Ipratropium/Albuterol Neb 3 ML IH ONE (04:46)
[2017-04-25] MEDS ORDERED: methylPREDNISolone 125 MG/2 ML VIAL IVP ONE (04:46)
--- NOTE | 2017-04-25 04:57 | Emergency Department Note ---
Disposition Clinical Impression: Acute exacerbation of chronic obstructive airways disease Disposition: Admitted As Inpatient Condition: Fair Time of Disposition: 06:10 General Adult HPI - General Chief complaint: ED Shortness of Breath/Dyspnea Stated complaint: shannon Time Seen by Provider: 04/25/17 04:45 Source: EMS Mode of arrival: EMS Limitations: no limitations Nursing Notes Reviewed: Yes Vital Signs Reviewed: Yes - History of Present Illness HPI Narrative: This is a 71-year-old female with a past medical history of COPD, Diabetes, CKD , CHF, Hypertension, hyperlipidemia. She presents to the emergency department via EMS with dyspnea. EMS states that she had run out of her oxygen at home, and they found her tripoding and struggling for breath. History was difficult to obtain due to patient's shortness of breath. Chest X-Ray 04/25/17 04:46 IMPRESSION: Pulmonary edema D/ / Octavio Blake MD / Octavio Blake MD Interpreting Provider: Octavio Blake MD Vital Signs Temperature 0 F L 04/25/17 04:40 Pulse Rate 113 04/25/17 04:40 Respiratory Rate 26 04/25/17 04:40 Blood Pressure 193/119 04/25/17 04:40 O2 Sat by Pulse Oximetry 96 04/25/17 04:40 Temperature 0 F L 04/25/17 04:40 Pulse Rate 113 04/25/17 04:40 Respiratory Rate 21 04/25/17 04:57 Blood Pressure 193/119 04/25/17 04:40 O2 Sat by Pulse Oximetry 99 04/25/17 04:57 Oxygen Delivery Oxygen Delivery Aerosol Mask Pain Scale: 0 - Related Data Home Medications Medication Instructions Recorded Confirmed Albuterol Sulfate [Albuterol 90 mcg IH Q4HR PRN 06/15/15 04/21/17 Inhaler] Budesonide/Formoterol 160/4.5 2 puff IH BIDR 06/15/15 04/21/17 [Symbicort 160/4.5] Duloxetine HCl [Cymbalta] 60 mg PO DAILY 06/15/15 04/21/17 Gabapentin [Neurontin] 300 mg PO TID 06/15/15 04/21/17 Nitroglycerin [Nitrostat] 0.4 mg SL Q5M PRN 06/15/15 04/21/17 Fenofibrate Nanocrystallized 145 mg PO DAILY 03/22/16 04/21/17 [Tricor] Omeprazole [PriLOSEC] 40 mg PO BID 05/18/16 04/21/17 Lisinopril [Zestril] 20 mg PO BID 04/22/17 04/22/17 Metoprolol XL (24 HR) Succ [Toprol 50 mg PO DAILY 04/22/17 04/22/17 Xl] Previous Rx's Medication Instructions Recorded Aspirin 81 mg PO DAILY #30 tab.chew 02/04/16 Atorvastatin [Lipitor] 40 mg PO HS #30 tablet 02/04/16 Acetaminophen [8 Hour] 650 mg PO Q8H PRN #30 tablet.er 04/23/17 HYDROcodone/Acet 5/325 mg [[place] 1 tab PO Q4HR PRN #14 tab 04/23/17 5-325 mg] Allergies Allergy/AdvReac Type Severity Reaction Status Date / Time Erythromycin Base Allergy Vomiting Verified 01/31/17 12:14 Penicillins [PCN] Allergy Rash Verified 01/31/17 12:14 codeine AdvReac Nausea Verified 01/31/17 12:14 indapamide [From Lozol] AdvReac See Verified 01/31/17 12:14 Comments Limitations: ROS unobtainable due to patients medical condition Respiratory: Reports: cough, dyspnea, wheezes, sputum production Past Medical History - Past Medical History Medical history: Reports: atrial fibrillation, CHF, COPD, coronary artery disease, diabetes, GERD, hyperlipidemia, hypertension, myocardial infarction, renal disease Surgical history: Reports: angioplasty/stent, appendectomy, hysterectomy, orthopedic, other (back, ankle), other Psychiatric history: Reports: depression 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 Absent: scleral icterus, conjunctival injection - ENT ENT exam: mucous membranes dry - Neck Neck exam: Present: trachea midline. Absent: meningismus - Chest Chest inspection: Present: normal inspection, symmetric chest wall rise. Absent : tenderness - Respiratory Respiratory exam: Present: respiratory distress, wheezes, accessory muscle use, prolonged expiratory phase - Cardiovascular Cardiovascular exam: Present: tachycardia - Abdominal Exam Abdominal exam: Present: soft, Non-Tender. Absent: tenderness, distention, guarding, rebound, rigidity - Neurological Exam Neurological exam: Present: alert, oriented X3 - Psychiatric Psychiatric exam: Present: normal affect, normal mood - Skin Skin exam: Present: warm, dry, intact, normal color. Absent: rash, diaphoresis Course - Reevaluation(s) Reevaluation #1: After administration of BiPAP, she appears to be more comfortable. Her heart rate has decreased to the low 90s. Rhonchi were still heard diffusely upon auscultation Time: 05:18 Reevaluation #2: Patient is now resting comfortably and sleeping. Heart rate is now in the upper 80s. Upon auscultation, she sounds as if she is moving more air. I hear more wheezing and less rhonchi. Time: 05:41 Vital Signs Temperature 0 F L 04/25/17 04:40 Pulse Rate 113 04/25/17 04:40 Respiratory Rate 26 04/25/17 04:40 Blood Pressure 193/119 04/25/17 04:40 O2 Sat by Pulse Oximetry 96 04/25/17 04:40 Temperature 98.3 F 04/25/17 06:10 Pulse Rate 92 04/25/17 06:10 Respiratory Rate 18 04/25/17 06:10 Blood Pressure 171/84 04/25/17 06:10 O2 Sat by Pulse Oximetry 100 04/25/17 06:10 Oxygen Delivery Oxygen Delivery Bipap Medical Decision Making - [facility] Narrative Medical decision making narrative: This 71-year-old female with a past medical history of COPD presented to the emergency department via EMS with severe dyspnea stating that she ran out of oxygen at home. Due to her respiratory distress, she was immediately placed on BiPAP. This significantly improved her breathing. Also, she was provided 3 DuoNeb treatments, methylprednisolone, and IV fluids. A chest x-ray was obtained and revealed pulmonary edema and cardiomegaly. Her initial heart rate of 113 went down to 92. I think at this time is in this female's best interest to be admitted inpatient due to her exacerbation of COPD , severity of symptoms, and the fact that she is out of oxygen at home. I spoke to the hospitalist Dr. Mckinney and he is in agreement to accept the admission. Chest X-Ray 04/25/17 04:46 IMPRESSION: Pulmonary edema D/ / Octavio Blake MD / Octavio Blake MD Interpreting Provider: Octavio Blake MD Vital Signs Temperature 0 F L 04/25/17 04:40 Pulse Rate 113 04/25/17 04:40 Respiratory Rate 26 04/25/17 04:40 Blood Pressure 193/119 04/25/17 04:40 O2 Sat by Pulse Oximetry 96 04/25/17 04:40 Temperature 0 F L 04/25/17 04:40 Pulse Rate 113 04/25/17 04:40 Respiratory Rate 21 04/25/17 04:57 Blood Pressure 193/119 04/25/17 04:40 O2 Sat by Pulse Oximetry 99 04/25/17 04:57 Oxygen Delivery Oxygen Delivery Aerosol Mask - Medical Records Medical records reviewed: Yes I reviewed the patient's medical records. - Lab Data Lab results reviewed: Yes I reviewed the patient's lab results. Result diagrams: 04/25/17 05:47 04/25/17 05:20 Lab Results 04/25/17 04/25/17 04/25/17 Range/Units 05:20 05:20 05:20 WBC (4.3-11.1) K/mcL RBC (3.82-4.97) M/mcL Hgb (11.5-15.4) g/dL Hct (35.3-44.9) % MCV (83.0-100.0) fL MCH (28.0-33.3) pg MCHC (31.6-35.5) g/dL RDW (11.5-14.5) % Plt Count (140-400) K/mcL MPV (9.4-12.4) fL Immature Gran % (0-4) % Seg Neutrophils % % Lymphocytes % % Monocytes % % Eosinophils % % Basophils % % Neutrophils # (1.6-8.9) K/mcL Lymphocytes # (0.6-4.6) K/mcL Monocytes # (0.0-1.3) K/mcL Eosinophils # (0.0-0.6) K/mcL Basophils # (0.0-0.2) K/mcL Immature Plt Fraction (1.1-6.1) % Sodium 138 (136-145) mEq/L Potassium 4.5 (3.5-4.5) mEq/L Chloride 107 (98-109) mEq/L Carbon Dioxide 24 (19-29) mEq/L BUN 31 H (7-20) mg/dL Creatinine 2.01 H (0.57-1.11) mg/dL Est GFR ( Amer) 30 L (> 60) Est GFR (Non-Af Amer) 24 L (> 60) BUN/Creatinine Ratio 15 (6-26) Glucose 231 H (70-99) mg/dL Calculated Osmolality 300 (280-300) Calcium 8.8 (8.6-10.8) mg/dL Troponin I 0.03 (0-0.03) ng/mL B-Natriuretic Peptide 2289 H (0-100) pg/mL Specimen Rejected 04/25/17 04/25/17 Range/Units 05:20 05:47 WBC 16.0 H D (4.3-11.1) K/mcL RBC 3.44 L (3.82-4.97) M/mcL Hgb 9.5 L (11.5-15.4) g/dL Hct 30.2 L (35.3-44.9) % MCV 87.8 (83.0-100.0) fL MCH 27.6 L (28.0-33.3) pg MCHC 31.5 L (31.6-35.5) g/dL RDW 15.0 H (11.5-14.5) % Plt Count 272 (140-400) K/mcL MPV 10.3 (9.4-12.4) fL Immature Gran % 0.7 (0-4) % Seg Neutrophils % 75.0 % Lymphocytes % 10.6 % Monocytes % 9.2 % Eosinophils % 3.9 % Basophils % 0.6 % Neutrophils # 12.0 H (1.6-8.9) K/mcL Lymphocytes # 1.7 (0.6-4.6) K/mcL Monocytes # 1.5 H (0.0-1.3) K/mcL Eosinophils # 0.6 (0.0-0.6) K/mcL Basophils # 0.1 (0.0-0.2) K/mcL Immature Plt Fraction 2.8 (1.1-6.1) % Sodium (136-145) mEq/L Potassium (3.5-4.5) mEq/L Chloride (98-109) mEq/L Carbon Dioxide (19-29) mEq/L BUN (7-20) mg/dL Creatinine (0.57-1.11) mg/dL Est GFR ( Amer) (> 60) Est GFR (Non-Af Amer) (> 60) BUN/Creatinine Ratio (6-26) Glucose (70-99) mg/dL Calculated Osmolality (280-300) Calcium (8.6-10.8) mg/dL Troponin I (0-0.03) ng/mL B-Natriuretic Peptide (0-100) pg/mL Specimen Rejected MCV Delta - EKG Data EKG #1 EKG results narrative: 04/25/2017 4:49 Ventricular rate 113 bpm, NC interval 160 ms, QRS duration 105 ms, QT 335 ms, QTC 402 ms normal axis. Sinus tachycardia with a ventricular rate of 113 bpm. RSR prime noted in the inferior leads suggesting an incomplete right bundle-branch block. This is unchanged from an EKG performed on 04/21/2017 Critical Care Time Critical Care Time: Yes Total Critical Care Time: 45 Attestation: Critical care performed: Time is exclusive of separately billable procedures. Time includes: direct patient care, patient reassessment, coordination of patient care, interpretation of data (laboratory data, radiology data, and respiratory data), review of patient's medical records, medical consultation and documentation of patient care. Procedures included in critical care time: Procedures excluded from critical care time: Attestation Statement - Attestation Attestation: I, Noah Pavon MD, personally evaluated this patient and discussed their management with the resident physician. I reviewed the resident's note and agree with the documented findings, medical decision making, and plan of care. 71-year-old female with history of CHF and COPD presents to the emergency department by ambulance with respiratory distress. Patient reports she awoke during the night with increased shortness of breath. No chest pain. Some nonproductive cough. No fever. On examination patient is a well-developed thin elderly female in moderate respiratory distress. She is alert. There is no cyanosis or diaphoresis. Breath sounds are decreased bilaterally with diffuse tight bilateral inspiratory and expiratory wheezes. Heart regular with moderate tachycardia. Abdomen soft and nontender with normal bowel sounds. Trace pedal edema. Chest x-ray read as pulmonary edema. On reviewing the films myself and I feel the markings are more related to pulmonary fibrosis. Labs reviewed. Patient received DuoNeb treatments and Solu-Medrol and placed on BiPAP. She was also started on Levaquin. Marked improvement in patient's symptoms clinically with treatment. The hospitalist, Dr. Mckinney, was consulted and accepted admission of the patient.
[2017-04-25 05:42] LABS: Calcium 8.8 mg/dL (8.6-10.8); Potassium 4.5 mEq/L (3.5-4.5)
[2017-04-25] MEDS ORDERED: Levofloxacin 750 MG/150 ML 750 MG/150 ML BAG IVPB ONE (05:47)
[2017-04-25 05:53] LABS: Basophils # 0.1 K/mcL (0.0-0.2); Basophils % 0.6 %; Eosinophils # 0.6 K/mcL (0.0-0.6); Eosinophils % 3.9 %; Hematocrit 30.2 % (35.3-44.9); Hemoglobin 9.5 g/dL (11.5-15.4); Immature Granulocytes % 0.7 % (0-4); Immature Platelets 2.8 % (1.1-6.1); Lymphocytes # 1.7 K/mcL (0.6-4.6); Lymphocytes % 10.6 %; Mean Corpuscular HGB Conc 31.5 g/dL (31.6-35.5); Mean Corpuscular Hemoglobin 27.6 pg (28.0-33.3); Mean Corpuscular Volume 87.8 fL (83.0-100.0); Mean Platelet Volume 10.3 fL (9.4-12.4); Monocytes # 1.5 K/mcL (0.0-1.3); Monocytes % 9.2 %; Platelet Count 272 K/mcL (140-400); Red Blood Count 3.44 M/mcL (3.82-4.97)
[2017-04-25] MEDS ORDERED: Naloxone 0.4 MG/ML INJ IVP PRN (08:07)
[2017-04-25] MEDS ORDERED: Acetaminophen 325 MG TABLET PO PRN (08:07)
[2017-04-25] MEDS ORDERED: Nitroglycerin 0.4 MG TAB.SUBL SL PRN (08:13)
[2017-04-25] MEDS ORDERED: Dextrose Gel 15 GM PO PRN ×2 (08:19)
[2017-04-25] MEDS ORDERED: *HR* Dextrose 50 % in Water (Syg) 50 ML SYRINGE IVP PRN (08:19)
[2017-04-25] MEDS ORDERED: D5% in Water 1,000 ML IVC PRN (08:19)
[2017-04-25] MEDS ORDERED: Ipratropium/Albuterol Neb 3 ML IH PRN (08:24)
--- NOTE | 2017-04-25 09:35 | Internal Med History&Physical ---
Date of Encounter: 04/25/17 Time of Encounter: 08:00 Assessment and Plan (1) Acute exacerbation of chronic obstructive airways disease Current visit: Yes Status: Acute Patient has shortness of breath. Presented with wheezing. History of COPD and smoking. - Improved after steroid and bronchodilator. - We will continue steroid, and bronchodilator. - Continue oxygen and BiPAP as needed supportive treatment - Closely monitor patient - Patient has atypical chest pain. Resolved now. EKG unremarkable. Will also check 3 sets of troponin. (2) Left wrist fracture Current visit: No Status: Acute Having been admitted recently. Orthopedic consult. No surgery. Qualifiers: Encounter type: initial encounter Fracture type: closed Qualified Code(s) : S62.102A - Fracture of unspecified carpal bone, left wrist, initial encounter for closed fracture (3) Hip fracture, left Current visit: No Status: Acute Admitted last time recently. Orthopedics saw patient on last admission. No surgery. Qualifiers: Encounter type: initial encounter Fracture type: closed Qualified Code(s) : S72.002A - Fracture of unspecified part of neck of left femur, initial encounter for closed fracture (4) DVT prophylaxis Current visit: No Status: Acute Heparin subcutaneously (5) CKD (chronic kidney disease), stage IV Current visit: No Status: Chronic Chronic. Creatinine is at baseline. (6) DM (diabetes mellitus), type 2 Current visit: No Status: Chronic We will continue basal and sliding scale insulin. Follow-up glucose level. 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 Place patient on nicotine patch (8) Acute diastolic (congestive) heart failure Current visit: No Status: Acute Patient has a shortness of breath. Chest x-ray shows pulmonary edema. Patient has elevated BNP. - Old chart reviewed. Previous echo shows the systolic and diastolic dysfunction. - We will treat patient with Lasix 40 mg IV daily. - Strict I/O. Internal Medicine - H&P: HPI Chief complaint: Shortness of breath Admitted From: Home Plans for Post Hospital Care: Home History of present illness: Ms. Nur is a 71 year old female with history of COPD, CHF, diabetes, CKD presented to the emergency room for shortness of breath. Patient said she feels the shortness of breath since yesterday evening. With the cough and greenish sputum. Patient denies fever. She said she has a mild lower mid chest pain after the onset of shortness of breath, no radiation. She has mild nausea and diaphoresis. In emergency room, she was found to wheezing, she was treated as COPD exacerbation, with bronchodilators, steroid, and BiPAP. Her condition has improved after treatment. Past Med Surg Social Fam HX - Past Medical History Medical history: atrial fibrillation, CHF, COPD, coronary artery disease, diabetes, GERD, hyperlipidemia, hypertension, myocardial infarction, renal disease Psychiatric history: depression - Past Surgical History Surgical History: angioplasty/stent, appendectomy, hysterectomy, orthopedic, other, other - Social History Smoking Status: Current every day smoker Smokeless Tobacco Status: No Alcohol use: none Drug use: none - Family History Father Adopted: No Family Member Ethnicity: Non- Living Status: Hx Family Cardiac Disorders: Yes (heart disease and heart attack) Hx Family Respiratory Disorders: Yes Hx Family Cancer: Yes (Lung cancer) Hx Family GI Disorders: No Hx Family Endocrine Disorder: Yes Hx Family Neuromuscular Disorders: No Hx Family Neurologic Disorders: No Hx Family HEENT Disorders: No Hx Family Autoimmune Disorders: No Mother Adopted: No Living Status: Hx Family Cardiac Disorders: Yes Hx Family Respiratory Disorders: Yes Hx Family Cancer: No Hx Family GI Disorders: Yes Hx Family Endocrine Disorder: Yes (Diabetes) Hx Family Neuromuscular Disorders: No Hx Family Neurologic Disorders: No Hx Family HEENT Disorders: No Hx Family Autoimmune Disorders: No Internal Medicine - H&P: Meds Albuterol Sulfate [Albuterol Inhaler] 2 puff IH Q4HR PRN 06/15/15 [History] Budesonide/Formoterol 160/4.5 [Symbicort 160/4.5] 2 puff IH BIDR 06/15/15 [ History] Duloxetine HCl [Cymbalta] 60 mg PO DAILY 06/15/15 [History] Gabapentin [Neurontin] 300 mg PO TID 06/15/15 [History] Nitroglycerin [Nitrostat] 0.4 mg SL Q5M PRN 06/15/15 [History] Aspirin 81 mg PO DAILY #30 tab.chew 02/04/16 [Rx] Atorvastatin [Lipitor] 40 mg PO HS #30 tablet 02/04/16 [Rx] Fenofibrate Nanocrystallized [Tricor] 145 mg PO DAILY 03/22/16 [History] Omeprazole [PriLOSEC] 40 mg PO BID 05/18/16 [History] Lisinopril [Zestril] 20 mg PO BID 04/22/17 [History] Metoprolol XL (24 HR) Succ [Toprol Xl] 50 mg PO DAILY 04/22/17 [History] Acetaminophen [8 Hour] 650 mg PO Q8H PRN #30 tablet.er 04/23/17 [Rx] HYDROcodone/Acet 5/325 mg [[place] 5-325 mg] 1 tab PO Q4HR PRN #14 tab 04/23/17 [ Rx] Amlodipine Besylate 5 mg PO DAILY 04/25/17 [History] Oxycodone HCl [Oxaydo] 5 mg PO Q6H PRN 04/25/17 [History] Allergies Erythromycin Base Allergy (Verified 01/31/17 12:14) Vomiting Penicillins [PCN] Allergy (Verified 01/31/17 12:14) Rash codeine Adverse Reaction (Verified 01/31/17 12:14) Nausea indapamide [From Lozol] Adverse Reaction (Verified 01/31/17 12:14) See Comments All Systems PM: A 10-system review of systems was performed and is negative for pertinent findings except as documented above in the HPI. - Constitutional Vitals: Temp Pulse Resp BP Pulse Ox 97.8 F 92 16 186/72 99 04/25/17 07:14 04/25/17 07:14 04/25/17 07:14 04/25/17 07:14 04/25/17 07:14 General appearance: Present: A&O X 3, no acute distress, answers questions appropriately - Head Head exam: Present: atraumatic, normocephalic - Eye Eye exam: Present: PERRL, conjuntiva pink, sclera anicteric Pupils: Present: PERRL - Neck Neck exam general surgery: Present: supple, trachea midline. Absent: lymphadenopathy - Respiratory Respiratory exam: Present: CTAB, rales (Fine crackles bilaterally at the lung base), wheezes (Scattered wheezes bilaterally at the lung base). Absent: accessory muscle use, rhonchi - Cardiovascular Cardiovascular exam: Present: RRR, +S1, +S2. Absent: diastolic murmur, gallop, rubs, systolic murmur - GI/Abdominal GI/Abdominal exam: Present: normal bowel sounds, soft, no peritoneal signs. Absent: distended, tenderness - Extremities Exam Extremities exam: Present: warm, radial pulses palpable and symetrical. Absent : calf tenderness, cyanotic, pedal edema - Neurological Exam Neurological exam: Present: CN II-XII intact, oriented X3, no focal deficits. Absent: pronater drift, facial droop, speech deficit - Skin Skin exam: Present: dry, intact Internal Med - H&P Results - Labs CBC & Chem 7: 04/25/17 05:47 04/25/17 05:20 - EKG Data -: EKG Interpreted by Myself EKG shows normal: sinus rhythm Rate: tachycardia
[2017-04-25] MEDS: Fenofibrate 54 MG TABLET PO SCH (09:42)
[2017-04-25] MEDS: Lisinopril 20 MG TABLET PO SCH ×2 (09:42→21:30)
[2017-04-25] MEDS: Metoprolol XL (24 HR) Succ 50 MG TAB.ER.24H PO SCH (09:42)
[2017-04-25] MEDS: Furosemide 40 MG/4 ML VIAL IVP SCH (09:43)
[2017-04-25] MEDS: Gabapentin 300 MG CAPSULE PO SCH ×2 (09:43→21:30)
[2017-04-25] MEDS: Nicotine 21 MG PATCH.TD24 TD SCH (09:43)
[2017-04-25] MEDS: amLODIPine 5 MG TABLET PO SCH (09:43)
[2017-04-25] MEDS: Insulin LISPRO 300 UNITS/3 ML VIAL SQ SCH ×3 (09:47→17:24)
[2017-04-25] MEDS: Aspirin 81 MG TAB.CHEW PO SCH (09:48)
[2017-04-25] MEDS: Ipratropium/Albuterol Neb 3 ML IH SCH ×3 (11:29→22:00)
[2017-04-25] MEDS: Budesonide/Formoterol 160/4.5 MDI IH SCH ×2 (11:29→22:00)
[2017-04-25] MEDS: methylPREDNISolone 125 MG/2 ML VIAL IVP SCH ×2 (15:28→23:39)
--- NOTE | 2017-04-25 15:41 | Electrocardiograph Report ---
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
[2017-04-25] MEDS ORDERED: Heparin 25,000 UNIT/500 ML D5W 25,000 UNIT/500 ML MLS IVC SCH ×2 (15:45→16:00)
[2017-04-25] MEDS ORDERED: *HR* Heparin 5,000 UNIT/ML VIAL IVP ONE (15:48)
[2017-04-25] MEDS ORDERED: *HR* Heparin 5,000 UNIT/ML VIAL IVP PRN ×2 (15:48)
--- NOTE | 2017-04-25 15:52 | Event Note ---
Date of Encounter: 04/25/17 Time of Encounter: 15:30 Pt has mild increase in troponin but no chest pain. However, nurse noticed pt has ST-T change on cardiac monitoring. 12 lead EKG has been done and shows T wave changes (from upright to flat/inversion) on V3-V6. Pt remains chest pain free. D/W Cardio consult Dr Bermudez on phone, recommend start heparin drip, repeat echo, and cardio consult will see pt.
[2017-04-25 17:52] LABS: Hemoglobin 9.3 g/dL (11.5-15.4); Immature Platelets 3.2 % (1.1-6.1); Mean Corpuscular HGB Conc 32.1 g/dL (31.6-35.5); Mean Corpuscular Volume 87.3 fL (83.0-100.0); Red Blood Count 3.32 M/mcL (3.82-4.97)
[2017-04-25 17:59] LABS: INR 1.1; Prothrombin Time 12.2 Seconds (9.4-12.1)
[2017-04-25] MEDS ORDERED: *HR* Heparin 5,000 UNIT/ML VIAL SQ SCH (18:00)
[2017-04-25 18:01] LABS: Activated Partial Thrombo Time 28.5 Seconds (26.0-36.0)
[2017-04-25] MEDS ORDERED: Insulin LISPRO 300 UNITS/3 ML VIAL SQ SCH ×2 (21:00)
[2017-04-25] MEDS ORDERED: Insulin DETEMIR 100 UNIT/ML X5UNITS SQ SCH (21:00)
[2017-04-25] MEDS: *HR* HYDROcodone/Acet 5/325 mg TABLET PO PRN (23:39)
[2017-04-26 00:45] LABS: Basophils % 0.1 %; Hematocrit 28.1 % (35.3-44.9); Immature Granulocytes % 0.5 % (0-4); Lymphocytes # 0.7 K/mcL (0.6-4.6); Mean Corpuscular Volume 87.5 fL (83.0-100.0); Mean Platelet Volume 10.9 fL (9.4-12.4); Monocytes # 0.6 K/mcL (0.0-1.3); Monocytes % 4.6 %; Neutrophils # 10.6 K/mcL (1.6-8.9); Platelet Count 262 K/mcL (140-400); Red Blood Count 3.21 M/mcL (3.82-4.97); Red Cell Distribution Width 14.9 % (11.5-14.5); Segmented Neutrophils % 88.8 %
[2017-04-26 01:01] LABS: Magnesium 1.8 mg/dL (1.6-2.6); Potassium 4.3 mEq/L (3.5-4.5)
[2017-04-26] MEDS: Ipratropium/Albuterol Neb 3 ML IH SCH ×3 (03:23→15:16)
[2017-04-26] MEDS: amLODIPine 5 MG TABLET PO SCH (08:14)
[2017-04-26] MEDS: Metoprolol XL (24 HR) Succ 50 MG TAB.ER.24H PO SCH (08:14)
[2017-04-26] MEDS: *HR* HYDROcodone/Acet 5/325 mg TABLET PO PRN (08:15)
[2017-04-26] MEDS: Fenofibrate 54 MG TABLET PO SCH (08:15)
[2017-04-26] MEDS: Lisinopril 20 MG TABLET PO SCH (08:16)
[2017-04-26] MEDS: Gabapentin 300 MG CAPSULE PO SCH (08:16)
[2017-04-26] MEDS: Furosemide 40 MG/4 ML VIAL IVP SCH (08:16)
[2017-04-26] MEDS: methylPREDNISolone 125 MG/2 ML VIAL IVP SCH (08:16)
[2017-04-26] MEDS: Nicotine 21 MG PATCH.TD24 TD SCH (08:17)
[2017-04-26] MEDS: Insulin LISPRO 300 UNITS/3 ML VIAL SQ SCH ×2 (08:21→12:15)
--- NOTE | 2017-04-26 09:16 | Cardiology Consult Note ---
Date of Encounter: 04/26/17 Time of Encounter: 08:00 Assessment and Plan (1) Elevated troponin Current Visit: Yes Status: Acute Mild, adynamic troponin elevation in the setting of COPD exacerbation, LOUANN on CKD, and severely elevated BP. Likely secondary to demand ischemia. Chest pain free upon exam. No significant ECG changes from prior study. Concern for ECG changes yesterday--no chest pain. Patient was started on IV heparin gtt, will stop today. Know hx of CAD with LCx lesion recommend for PCI; however due to persistent GI bleed, anemia medical therapy has been recommended. Patient denies any angina. Continue medical therapy in the setting of LOUANN on CKD, will add long-acting nitrate. Continue asa, statin, and betablocker. Recommend improved BP control, will increase amlodipine. BNP 2289--which is near baseline, mild volume overload upon exam, agree with IV lasix. Transition to oral by discharge. Prior TTE demonstrated preserved LVEF 50-55%, repeat echo results are pending. Further recommendations to follow based on TTE findings. (2) CAD (coronary artery disease) Current Visit: No Status: Chronic Plan as stated above. Qualifiers: Coronary Disease-Associated Artery/Lesion type: [place] artery [place] vs. transplanted heart: [place] heart Associated angina: without angina Qualified Code(s): I25.10 - Atherosclerotic heart disease of [place] coronary artery without angina pectoris Discussion w patient/family: The assessment and plan as outlined above was discussed with the patient and/or family members who expressed understanding and agreement. All questions were answered. Thank you for involving us in the care of your patient. Please call with any questions. The patient will be discussed and reviewed with Dr. Bermudez; changes to be made accordingly. History of Present Illness Consult date: 04/26/17 Requesting physician: Beryl Reed Consult reason: Elevated troponin Chief complaint: Shortness of breath History of present illness: Ms. Nur is a 71 year old female with PMHx significant for CAD s/p PCI, HTN , DMII, CKD, anemia, PAD, and COPD who presented to the ED with acute onset of shortness of breath; she reports symptoms consistent with prior COPD "flare-up. " She reports she was recently discharge from [facility] s/p mechanical fall with left arm fracture, was sent home and her oxygen tank was not working at home which triggered exacerbation. She denies chest pain or discomfort/anginal equivalent. Denies any other CV symptoms including swelling, dizziness, or syncope. Denies melena or abnormal/unusual bleeding. Cardiology consulted for elevated troponin and ECG changes. She has a known hx of obstructive CAD per [facility] 09/2015 (LCx lesion), medical management has been recommended due to GI bleed/anemia. Last colonoscopy at [facility] 02/17/16: dark red blood throughout the entire colon. Recent CV testing: TTE (limited) 03/03/17: EF 50-55%, moderate cLVH, basal inferior wall akinetic TTE 02/01/16: LVEF 50-55%, hypokinesis of the basal inferior wall, moderate cLVH, moderate LVDD, no significant valvular dysfunction [facility] 09/14/15: severe 2vCAD, EF 45%, stent (s) from prior procedure occluded-- pRCA and dRCA (with L->R collaterals); mild LAD disease, 80% pLCx stenosis, 70% 1st OM stenosis; PCI of LCx recommended once melena resolved. Past Med Surg Social Fam HX - Past Medical History Attestation: Yes The following information was validated with the patient. Source: patient, old records reviewed Medical history: COPD, coronary artery disease, diabetes, GERD, GI bleed, hyperlipidemia, hypertension, myocardial infarction, peripheral artery disease, renal disease Psychiatric history: depression - Past Surgical History Surgical History: angioplasty/stent, appendectomy, hysterectomy, orthopedic, other - Social History Smoking Status: Current every day smoker Packs per day: 1 ppd Smokeless Tobacco Status: No Alcohol use: none Drug use: none - Family History Father Adopted: No Family Member Ethnicity: Non- Living Status: Hx Family Cardiac Disorders: Yes (heart disease and heart attack) Hx Family Respiratory Disorders: Yes Hx Family Cancer: Yes (Lung cancer) Hx Family GI Disorders: No Hx Family Endocrine Disorder: Yes Hx Family Neuromuscular Disorders: No Hx Family Neurologic Disorders: No Hx Family HEENT Disorders: No Hx Family Autoimmune Disorders: No Mother Adopted: No Living Status: Hx Family Cardiac Disorders: Yes Hx Family Respiratory Disorders: Yes Hx Family Cancer: No Hx Family GI Disorders: Yes Hx Family Endocrine Disorder: Yes (Diabetes) Hx Family Neuromuscular Disorders: No Hx Family Neurologic Disorders: No Hx Family HEENT Disorders: No Hx Family Autoimmune Disorders: No Medications and Allergies Albuterol Sulfate [Albuterol Inhaler] 2 puff IH Q4HR PRN 06/15/15 [History] Budesonide/Formoterol 160/4.5 [Symbicort 160/4.5] 2 puff IH BIDR 06/15/15 [ History] Duloxetine HCl [Cymbalta] 60 mg PO DAILY 06/15/15 [History] Gabapentin [Neurontin] 300 mg PO TID 06/15/15 [History] Nitroglycerin [Nitrostat] 0.4 mg SL Q5M PRN 06/15/15 [History] Aspirin 81 mg PO DAILY #30 tab.chew 02/04/16 [Rx] Atorvastatin [Lipitor] 40 mg PO HS #30 tablet 02/04/16 [Rx] Fenofibrate Nanocrystallized [Tricor] 145 mg PO DAILY 03/22/16 [History] Omeprazole [PriLOSEC] 40 mg PO BID 05/18/16 [History] Lisinopril [Zestril] 20 mg PO BID 04/22/17 [History] Metoprolol XL (24 HR) Succ [Toprol Xl] 50 mg PO DAILY 04/22/17 [History] Acetaminophen [8 Hour] 650 mg PO Q8H PRN #30 tablet.er 04/23/17 [Rx] HYDROcodone/Acet 5/325 mg [[place] 5-325 mg] 1 tab PO Q4HR PRN #14 tab 04/23/17 [ Rx] Amlodipine Besylate 5 mg PO DAILY 04/25/17 [History] Oxycodone HCl [Oxaydo] 5 mg PO Q6H PRN 04/25/17 [History] Allergies Erythromycin Base Allergy (Verified 01/31/17 12:14) Vomiting Penicillins [PCN] Allergy (Verified 01/31/17 12:14) Rash codeine Adverse Reaction (Verified 01/31/17 12:14) Nausea indapamide [From Lozol] Adverse Reaction (Verified 01/31/17 12:14) See Comments All Systems Review: A 10-system review of systems was performed and is negative for pertinent findings except as documented above in the HPI. - Cardiovascular Cardiovascular: as per HPI Physical Examination Vital Signs, Last 4 Hours Temp Pulse Resp BP Pulse Ox 04/26/17 07:28 98.1 F 78 24 186/70 98 General: Conversant, No Apparent Distress HEENT: Atraumatic, Normocephaly Cardiac: Reg Rate and Rhythm, Normal S1 and S2 Lungs: Other (Bibasilar rales) Neuro: Alert and responsive Abdomen: Soft Skin: No rashes noted on visualized skin Musculoskeletal: No Chest Wall Tenderness Extremities: No Edema, Normal Pulses, Other (left arm splint/VASILE bandage. ) Results 04/26/17 00:30 04/26/17 00:30 Lab Results 04/25/17 04/25/17 04/25/17 11:24 17:17 17:17 WBC 7.8 D Hgb 9.3 L Hct 29.0 L Plt Count 271 INR APTT Sodium Potassium Chloride Carbon Dioxide BUN Creatinine Glucose Calcium Magnesium Troponin I 0.05 H* 0.07 H* 04/25/17 04/26/17 04/26/17 17:17 00:30 00:30 WBC 11.9 H D Hgb 9.0 L Hct 28.1 L Plt Count 262 INR 1.1 APTT 28.5 Sodium 133 L Potassium 4.3 Chloride 102 Carbon Dioxide 21 BUN 37 H Creatinine 2.21 H Glucose 223 H Calcium 9.0 Magnesium 1.8 Troponin I 04/26/17 04/26/17 00:30 07:05 WBC Hgb Hct Plt Count INR APTT 48.7 H D 88.1 H D Sodium Potassium Chloride Carbon Dioxide BUN Creatinine Glucose Calcium Magnesium Troponin I - Imaging and Cardiology Chest Xray: report reviewed Echo: report reviewed Cardiac cath: report reviewed Other Results: 12 hour tele: avg HR=83 SR. No significant event noted. Consult Discharge Plan - Plan Referrals: NO,PCP [Primary Care Provider] -
--- NOTE | 2017-04-26 09:33 | Electrocardiograph Report ---
[place] [id number] Test Date: 2017-04-25 Pat Name: Jennifer Nur Department: 112 Room: 2A Gender: F Chief Of Party: : 1945 Requested By: Paddy Lynn Order Number: [id number] Reading MD: Rah Cornell MD Measurements Intervals [place] Rate: 84 P: 94 OR: 167 QRS: 17 QRSD: 103 T: 213 QT: 391 QTc: 431 Interpretive Statements SINUS RHYTHM WITH SINUS ARRHYTHMIA LEFT VENTRICULAR HYPERTROPHY AND ST-T CHANGE Electronically Signed On 04-26-2017 9:31:59 EDT by Rah Cornell MD
[2017-04-26] MEDS: Budesonide/Formoterol 160/4.5 MDI IH SCH (09:36)
[2017-04-26] MEDS ORDERED: Isosorbide MONOnitrate (24 HR) 30 MG TAB.ER.24H PO SCH (09:45)
--- NOTE | 2017-04-26 10:25 | Internal Med Progress Note ---
Date of Encounter: 04/26/17 Time of Encounter: 10:00 - Subjective Interval history: Patient was seen and examined this morning. Patient reports having left - Constitutional Vitals: Temp Pulse Resp BP Pulse Ox 98.1 F 78 24 186/70 98 04/26/17 07:28 04/26/17 07:28 04/26/17 07:28 04/26/17 07:28 04/26/17 07:28 General appearance: Present: A&O X 3, no acute distress, answers questions appropriately Internal Medicine: Result - Labs CBC & Chem 7: 04/26/17 00:30 04/26/17 00:30 Labs: Short CBC 04/25/17 04/26/17 Range/Units 17:17 00:30 WBC 7.8 D 11.9 H D (4.3-11.1) K/mcL Hgb 9.3 L 9.0 L (11.5-15.4) g/dL Hct 29.0 L 28.1 L (35.3-44.9) % Plt Count 271 262 (140-400) K/mcL Neutrophils # 10.6 H (1.6-8.9) K/mcL BMP 04/26/17 00:30 Sodium 133 L Potassium 4.3 Chloride 102 Carbon Dioxide 21 BUN 37 H Creatinine 2.21 H Glucose 223 H Calcium 9.0 Cardiac Enzymes 04/25/17 04/25/17 04/26/17 Range/Units 11:24 17:17 09:03 Troponin I 0.05 H* 0.07 H* 0.05 H* (0-0.03) ng/mL - ABG Interpretation ABG results: PT/INR, D-dimer PT 12.2 Seconds (9.4-12.1) H 04/25/17 17:17 Consult Discharge Plan - Plan Referrals: NO,PCP [Primary Care Provider] -
[2017-04-26 11:08] VITALS: BP 178/69
[2017-04-26] MEDS: Aspirin 81 MG TAB.CHEW PO SCH (12:14)
--- NOTE | 2017-04-26 14:25 | Discharge Summary ---
<Marita Borden - Last Filed: 04/26/17 15:09> Date of Encounter: 04/26/17 Time of Encounter: 13:30 - Discharge Diagnosis (1) Acute respiratory failure with hypoxia Priority: Secondary Status: Acute Comments: - Dyspnea requiring 4L oxygen and BiPAP in ED (patient reports only use "7-8"L of oxygen at night). - Likely to due acute exacerbation of COPD. - Significantly improves as patient is now able to maintain O2 sat > 94% on room air. (2) Acute exacerbation of chronic obstructive airways disease Priority: Primary Status: Acute Comments: - Likely secondary to non-compliance as patient admits active smoking and not taking bronchodilators at home. - Significantly improves with IV Solu-medrol, Symbicort and Duoneb. (3) Elevated troponin Priority: Secondary Status: Acute Comments: - Mildly elevated troponin (0.03, 0.05, 0.07, 0.05) - Cardiology was consulted as EKG showed T wave changes (from upright to flat/ inversion) on V3-V6. - Patient reports no chest pain. - Echo showed LVEF 50-55% with moderate LV diastolic dysfunction, no significant change compared to prior echo in 2016. - No further cardiac testing is indicated as an inpatient per cardiology. - Patient will follow-up with Dr. Cornell in cardiology clinic within 2-3 weeks of discharge. (4) Hypertension Priority: Secondary Status: Chronic Comments: - Noted to have elevated BP as high as 186/81. - Add Imdur and increase amlodipine to 10 mg daily per cardiology Qualifiers: Hypertension type: essential hypertension Qualified Code(s): I10 - Essential (primary) hypertension (5) Hip fracture, left Priority: Secondary Status: Acute Comments: - Secondary to mechanical fall on 04/21/17 and nonsurgical per discharge summary on prior hospitalization - Add lidocaine patch for pain - Patient is instructed to follow up with orthopedic outpatiently. Qualifiers: Encounter type: subsequent encounter Fracture type: closed Fracture healing: with routine healing Qualified Code(s): S72.002D - Fracture of unspecified part of neck of left femur, subsequent encounter for closed fracture with routine healing (6) Left wrist fracture Priority: Secondary Status: Chronic Comments: - Secondary to mechanical fall on 04/21/17 and nonsurgical per discharge summary on prior hospitalization - On splint. - Patient is instructed to follow up with orthopedic outpatiently. Qualifiers: Encounter type: subsequent encounter Fracture healing: with routine healing Qualified Code(s): S62.102D - Fracture of unspecified carpal bone, left wrist, subsequent encounter for fracture with routine healing (7) Tobacco use Priority: Secondary Status: Chronic Comments: - Patient admits still smoking one pack per day. - Smoking cessation counseling. - Continue nicotine patch after discharge. - Discharge Medications Prescriptions: amLODIPine [Norvasc] 10 mg PO DAILY #60 tab Isosorbide MONOnitrate (24 HR) [Imdur] 30 mg PO DAILY #30 tab Lidocaine Patch [Lidoderm 5% patch] 1 each TP DAILY #30 patch Nicotine Patch [Nicoderm] 21 mg TD DAILY #30 patch predniSONE [PredniSONE] 40 mg PO DAILY #4 tablet Home Medications: Albuterol Sulfate [Albuterol Inhaler] 2 puff IH Q4HR PRN 06/15/15 [History] Budesonide/Formoterol 160/4.5 [Symbicort 160/4.5] 2 puff IH BIDR 06/15/15 [ History] Duloxetine HCl [Cymbalta] 60 mg PO DAILY 06/15/15 [History] Gabapentin [Neurontin] 300 mg PO TID 06/15/15 [History] Nitroglycerin [Nitrostat] 0.4 mg SL Q5M PRN 06/15/15 [History] Aspirin 81 mg PO DAILY #30 tab.chew 02/04/16 [Rx] Atorvastatin [Lipitor] 40 mg PO HS #30 tablet 02/04/16 [Rx] Fenofibrate Nanocrystallized [Tricor] 145 mg PO DAILY 03/22/16 [History] Omeprazole [PriLOSEC] 40 mg PO BID 05/18/16 [History] Lisinopril [Zestril] 20 mg PO BID 04/22/17 [History] Metoprolol XL (24 HR) Succ [Toprol Xl] 50 mg PO DAILY 04/22/17 [History] Acetaminophen [8 Hour] 650 mg PO Q8H PRN #30 tablet.er 04/23/17 [Rx] HYDROcodone/Acet 5/325 mg [[place] 5-325 mg] 1 tab PO Q4HR PRN #14 tab 04/23/17 [ Rx] Oxycodone HCl [Oxaydo] 5 mg PO Q6H PRN 04/25/17 [History] Isosorbide MONOnitrate (24 HR) [Imdur] 30 mg PO DAILY #30 tab 04/26/17 [Rx] Lidocaine Patch [Lidoderm 5% patch] 1 each TP DAILY #30 patch 04/26/17 [Rx] Nicotine Patch [Nicoderm] 21 mg TD DAILY #30 patch 04/26/17 [Rx] amLODIPine [Norvasc] 10 mg PO DAILY #60 tab 04/26/17 [Rx] predniSONE [PredniSONE] 40 mg PO DAILY #4 tablet 04/26/17 [Rx] Allergies/Adverse Reactions: Allergies Erythromycin Base Allergy (Verified 01/31/17 12:14) Vomiting Penicillins [PCN] Allergy (Verified 01/31/17 12:14) Rash codeine Adverse Reaction (Verified 01/31/17 12:14) Nausea indapamide [From Lozol] Adverse Reaction (Verified 01/31/17 12:14) See Comments Procedures/tests Complete & Pending: Procedures Performed prior 72 hours Category Date Time Status ECG 12 lead ECG [ECG] Routine Y 04/25/17 15:17 Completed EV echocardiogram Stat Y 04/25/17 15:46 Completed Date of admission: 04/25/17 06:20 Primary care physician: PCP NO Consults: 04/25/17 07:00 Consult to Nutrition [CONS] Routine Comment: Consulting Provider: NUTRITION Reason for Dietary Consult: MST Score Consult to Medical Editor [CONS] Routine Reason for SW Consult: Patient lives home alone. Patient does has [place] [facility]. 04/25/17 15:44 Consult to Cardiology [CONS] Routine Comment: Consulting Provider: Cardiology Lita Reason for Consult: Chest pain, elevated troponin, EKG change Call Completed: Yes Discharging clinician: Marita Borden Anticipated date of discharge: 04/26/17 - Patient Status Disposition: Home Health Service Condition: Fair Functional capacity at discharge: uses cane/walker Overall status at discharge: patient is progressing back to baseline - Discharge Instructions Follow Up With: NO,PCP [Primary Care Provider] - (Within a week.) Rah Cornell MD [Partnered Physician] - (Within 2-3 weeks.) [facility] [Provider Group] (Within a week regarding left wrist & hip fractures from mechanical fall on 04/21/17.) Additional Instructions: Please take 4 more days of Prednisone 40 mg daily in addition to continuing your home dose Symbicort and albuterol inhaler. Please note that Imdur was added and your Norvasc has been increased to 10 mg daily for your hypertension. You can use prescribed lidocaine patch daily for pain. Please continue smoking cessation and prescription of nicotine patch is provided. Please follow up with your primary care provider within a week. Please follow up with Dr. Cornell of [facility] within 2-3 weeks. Please follow up with [facility] within a week. - Diet and Activity Activity: increase activity as tolerated Diet: diabetic diet Hospital course: Ms. Nur is a 71 year old female with history of COPD, CHF, diabetes, CKD4 and recent hospitalization (04/21/17-04/23/17) for fractures of left writst and left hip after a mechanical fall, which was concluded as no orthopedic surgery indicated at that time. Patient presented with one-day histroy of worsening shortness of breath associated with productive cough. Patient admits active smoking and not taking bronchodilators at home. Patient was noted to have dyspnea requiring 4L oxygen and BiPAP in ED. Patient was admitted on 04/25/17 for acute respiratory failure with hypoxia secondary to acute exacerbation of COPD. Patient was started on IV Solu-Medrol, Symbicort and Duoneb. And patient' s respiratory status significantly improves next day as patient is now able to maintain O2 sat > 94% on room air. Patient was also noted to have mildly elevated troponin (0.03, 0.05, 0.07, 0.05). Patient reports no chest pain. Cardiology was consulted as EKG showed T wave changes (from upright to flat/ inversion) on V3-V6. Echo on 04/25/17 showed LVEF 50-55% with moderate LV diastolic dysfunction, no significant change compared to prior echo in 2016. No further cardiac testing is indicated as an inpatient per cardiology but patient will need to follow-up with Dr. Cornell in cardiology clinic within 2-3 weeks of discharge. Patient was also noted to have elevated BP as high as 186/81, and Imdur was added in addition to increase of amlodipine to 10 mg daily per cardiology. Given patient's respiratory status improves significantly and remains hemodynamically stable, patient will be discharged home with home health and new change on antihypertensive regimen. Patient will take 4 more days of Prednisone 40 mg daily in addition to continuing home dose Symbicort and albuterol inhaler. Patient is encouraged to continue smoking cessation and prescription of nicotine patches is provided. Patient is instructed to follow up with her primary care provider within a week, Dr. Cornell of [facility] within 2-3 weeks, and [facility] within a week. Patient verbalized her understanding and agreed with the discharge plan. All questions answered. Time spent discussing smoking cessation with patient: 3 to 10 minutes - Time Spent with Patient Total time spent providing and/or coordinating discharge services: Greater than 30 minutes (44 minutes) - Constitutional Vitals: Temp Pulse Resp BP Pulse Ox 98.3 F 68 20 178/69 99 04/26/17 11:00 04/26/17 11:00 04/26/17 11:00 04/26/17 11:00 04/26/17 11:00 General appearance: Present: A&O X 3, no acute distress, answers questions appropriately - Head Head exam: Present: atraumatic, normocephalic - Eye Eye exam: Present: EOMI, PERRL, conjuntiva pink, sclera anicteric - Neck Neck exam general surgery: Present: supple, trachea midline. Absent: lymphadenopathy - Respiratory Respiratory exam: Present: wheezes (Mild). Absent: accessory muscle use, rales , rhonchi - Cardiovascular Cardiovascular exam: Present: RRR, +S1, +S2. Absent: diastolic murmur, gallop, rubs, systolic murmur - GI/Abdominal GI/Abdominal exam: Present: normal bowel sounds, soft, no peritoneal signs. Absent: distended - Extremities Exam Extremities exam: Present: warm, radial pulses palpable and symetrical. Absent : calf tenderness, cyanotic, pedal edema Additional comments: Left forearm splint in place - Neurological Exam Neurological exam: Present: CN II-XII intact, oriented X3, no focal deficits. Absent: pronater drift, facial droop, speech deficit - Skin Skin exam: Present: dry, intact, warm <Paddy Lynn H - Last Filed: 04/26/17 15:16> Date of Encounter: 04/26/17 Procedures/tests Complete & Pending: Procedures Performed prior 72 hours Category Date Time Status ECG 12 lead ECG [ECG] Routine Y 04/25/17 15:17 Completed EV echocardiogram Stat Y 04/25/17 15:46 Completed Date of admission: 04/25/17 06:20 Primary care physician: PCP NO Consults: 04/25/17 07:00 Consult to Nutrition [CONS] Routine Comment: Consulting Provider: NUTRITION Reason for Dietary Consult: MST Score Consult to Medical Editor [CONS] Routine Reason for SW Consult: Patient lives home alone. Patient does has [facility]. 04/25/17 15:44 Consult to Cardiology [CONS] Routine Comment: Consulting Provider: Cardiology Lita Reason for Consult: Chest pain, elevated troponin, EKG change Call Completed: Yes Hospital course: Ms. Nur is a 71 year old female - Time Spent with Patient Total time spent providing and/or coordinating discharge services: - Constitutional Vitals: Temp Pulse Resp BP Pulse Ox 98.3 F 68 20 178/69 99 04/26/17 11:00 04/26/17 11:00 04/26/17 11:00 04/26/17 11:00 04/26/17 11:00 - Attending Attestation acute hypoxic resp failure 2ry to acute COPD exacerbation due to acute bronchitis, likely viral discharge on steroid taper I examined this patient and my medical decision-making was reviewed with the Resident Physician. I agree with the documented findings, disposition and treatment plan as described except to the extent set forth below.
--- NOTE | 2017-04-26 15:11 | Physician Discharge Referral ---
<Marita Borden - Last Filed: 04/26/17 15:10> Home Health/Hosp Referral Info Transfer to: Home Health Provider in Charge Post Discharge: PCP - Diagnosis (1) Acute respiratory failure with hypoxia Priority: Primary Status: Acute (2) Acute exacerbation of chronic obstructive airways disease Priority: Primary Status: Acute (3) Elevated troponin Priority: Secondary Status: Acute (4) Hypertension Priority: Secondary Status: Chronic (5) Hip fracture, left Priority: Secondary Status: Acute (6) Left wrist fracture Priority: Secondary Status: Chronic (7) Tobacco use Priority: Secondary Status: Chronic - Respiratory Orders Smoking Cessation: Smoking cessation has been advised. For more information, call the [place] Tobacco Quit Line at 3-300-RHPY-NOW. - Diet/Nutrition Diet/Nutrition Orders: No Concentrated Sweets - Activity Activity Orders: Walker - Services Needed Following services are medically necessary services: Home Health Aide, Physical Therapy, Occupational Therapy - Transfer Medications Prescriptions: amLODIPine [Norvasc] 10 mg PO DAILY #60 tab Isosorbide MONOnitrate (24 HR) [Imdur] 30 mg PO DAILY #30 tab Lidocaine Patch [Lidoderm 5% patch] 1 each TP DAILY #30 patch Nicotine Patch [Nicoderm] 21 mg TD DAILY #30 patch predniSONE [PredniSONE] 40 mg PO DAILY #4 tablet Home Medications: Albuterol Sulfate [Albuterol Inhaler] 2 puff IH Q4HR PRN 06/15/15 [History] Budesonide/Formoterol 160/4.5 [Symbicort 160/4.5] 2 puff IH BIDR 06/15/15 [ History] Duloxetine HCl [Cymbalta] 60 mg PO DAILY 06/15/15 [History] Gabapentin [Neurontin] 300 mg PO TID 06/15/15 [History] Nitroglycerin [Nitrostat] 0.4 mg SL Q5M PRN 06/15/15 [History] Aspirin 81 mg PO DAILY #30 tab.chew 02/04/16 [Rx] Atorvastatin [Lipitor] 40 mg PO HS #30 tablet 02/04/16 [Rx] Fenofibrate Nanocrystallized [Tricor] 145 mg PO DAILY 03/22/16 [History] Omeprazole [PriLOSEC] 40 mg PO BID 05/18/16 [History] Lisinopril [Zestril] 20 mg PO BID 04/22/17 [History] Metoprolol XL (24 HR) Succ [Toprol Xl] 50 mg PO DAILY 04/22/17 [History] Acetaminophen [8 Hour] 650 mg PO Q8H PRN #30 tablet.er 04/23/17 [Rx] HYDROcodone/Acet 5/325 mg [[place] 5-325 mg] 1 tab PO Q4HR PRN #14 tab 04/23/17 [ Rx] Oxycodone HCl [Oxaydo] 5 mg PO Q6H PRN 04/25/17 [History] Isosorbide MONOnitrate (24 HR) [Imdur] 30 mg PO DAILY #30 tab 04/26/17 [Rx] Lidocaine Patch [Lidoderm 5% patch] 1 each TP DAILY #30 patch 04/26/17 [Rx] Nicotine Patch [Nicoderm] 21 mg TD DAILY #30 patch 04/26/17 [Rx] amLODIPine [Norvasc] 10 mg PO DAILY #60 tab 04/26/17 [Rx] predniSONE [PredniSONE] 40 mg PO DAILY #4 tablet 04/26/17 [Rx] Allergies/Adverse Reactions: Allergies Erythromycin Base Allergy (Verified 01/31/17 12:14) Vomiting Penicillins [PCN] Allergy (Verified 01/31/17 12:14) Rash codeine Adverse Reaction (Verified 01/31/17 12:14) Nausea indapamide [From Lozol] Adverse Reaction (Verified 01/31/17 12:14) See Comments Certification: Further, I certify that my clinical findings support that this patient is homebound (i.e. absences from home require considerable and taxing effort and are for medical reasons or restorationist services or infrequently or short duration when for other reasons) because: Homebound Reason: Patient requires assistance of a person or device to safely leave home Attestation: My signature below is to certify that this patient is under my care and that I, or nurse practitioner, or a physician's visual merchandising assistant working with me, has a face-to -face encounter with this patient. <Paddy Lynn - Last Filed: 04/26/17 15:17> - Respiratory Orders Smoking Cessation: Smoking cessation has been advised. For more information, call the [place] Tobacco Quit Line at 6-414-SDXF-NOW. Certification: Further, I certify that my clinical findings support that this patient is homebound (i.e. absences from home require considerable and taxing effort and are for medical reasons or restorationist services or infrequently or short duration when for other reasons) because: Attestation: My signature below is to certify that this patient is under my care and that I, or nurse practitioner, or a physician's visual merchandising assistant working with me, has a face-to -face encounter with this patient. I examined this patient and my medical decision-making was reviewed with the Resident Physician. I agree with the documented findings, disposition and treatment plan as described except to the extent set forth below.
[2017-04-26] MEDS ORDERED: *HR* Heparin 5,000 UNIT/ML VIAL SQ SCH (18:00)
[2017-04-27] MEDS ORDERED: amLODIPine 5 MG TABLET PO SCH (09:00)
== END 2017-04-26 16:50 | disposition home health service (06) | DRG 190 ==
LOC: 2ANU 04:36 → EMEROO 04:36 → OBSVTOIN 06:20 → 2ANU 07:04
PROVIDERS: ADMIT Internal Medicine; ATTEND Internal Medicine

== ENCOUNTER 2017-07-10 18:09 | Inpatient (IN) ==
[2017-07-10] MEDS ORDERED: 0.9 % Sodium Chloride 1,000 ML IVC ONE (18:13)
--- NOTE | 2017-07-10 18:13 | Emergency Department Note ---
Disposition Clinical Impression: COPD (chronic obstructive pulmonary disease), Dyspnea Disposition: Still a Patient Forms: ED Satisfaction Letter SOB HPI - General Chief Complaint: ED Shortness of Breath/Dyspnea Stated Complaint: DENIZ Time Seen by Provider: 07/10/17 18:11 Source: patient, EMS Mode of arrival: EMS Limitations: no limitations Nursing Notes Reviewed: Yes Vital Signs Reviewed: Yes - History of Present Illness Patient presents to the ED via EMS and was seen and evaluated upon arrival. She has a history of COPD was recently admitted to an outside facility for COPD exacerbation and pneumonia. States that since then she has been progressively declining. She is on oxygen at home. States that she has been getting very short of breath lately. She does have a productive cough. She is also complaining of diffuse abdominal cramping and new onset melena in the last 3-4 days. Her abdominal pain is mainly left-sided, crampy in nature, nonradiating. Nothing seems to make it better or worse. She has been having diarrhea, melena over the past few days and diarrhea to the point where she cannot control her bowels at times. No fever. States she has been having some intermittent, sharp centralized chest pain as well. - Related Data Home Medications Medication Instructions Recorded Confirmed Albuterol Sulfate [Albuterol 2 puff IH Q4HR PRN 06/15/15 04/25/17 Inhaler] Budesonide/Formoterol 160/4.5 2 puff IH BIDR 06/15/15 04/25/17 [Symbicort 160/4.5] Duloxetine HCl [Cymbalta] 60 mg PO DAILY 06/15/15 04/25/17 Gabapentin [Neurontin] 300 mg PO TID 06/15/15 04/25/17 Nitroglycerin [Nitrostat] 0.4 mg SL Q5M PRN 06/15/15 04/25/17 Fenofibrate Nanocrystallized 145 mg PO DAILY 03/22/16 04/25/17 [Tricor] Omeprazole [PriLOSEC] 40 mg PO BID 05/18/16 04/25/17 Lisinopril [Zestril] 20 mg PO BID 04/22/17 04/25/17 Metoprolol XL (24 HR) Succ [Toprol 50 mg PO DAILY 04/22/17 04/25/17 Xl] Oxycodone HCl [Oxaydo] 5 mg PO Q6H PRN 04/25/17 04/25/17 Previous Rx's Medication Instructions Recorded Aspirin 81 mg PO DAILY #30 tab.chew 02/04/16 Atorvastatin [Lipitor] 40 mg PO HS #30 tablet 02/04/16 Acetaminophen [8 Hour] 650 mg PO Q8H PRN #30 tablet.er 04/23/17 HYDROcodone/Acet 5/325 mg [[place] 1 tab PO Q4HR PRN #14 tab 04/23/17 5-325 mg] Lidocaine Patch [Lidoderm 5% patch] 1 each TP DAILY #30 patch 04/26/17 Nicotine Patch [Nicoderm] 21 mg TD DAILY #30 patch 04/26/17 amLODIPine [Norvasc] 10 mg PO DAILY #60 tab 04/26/17 Bumetanide [Bumex] 0.5 mg PO DAILY #15 tablet 06/26/17 Isosorbide MONOnitrate (24 HR) 60 mg PO DAILY #30 tab.er.24h 06/26/17 [Imdur] Potassium Chloride 10 meq PO DAILY #30 tab.er.prt 06/26/17 Allergies Allergy/AdvReac Type Severity Reaction Status Date / Time Erythromycin Base Allergy Vomiting Verified 07/10/17 18:15 Penicillins [PCN] Allergy Rash Verified 07/10/17 18:15 codeine AdvReac Nausea Verified 07/10/17 18:15 indapamide [From Lozol] AdvReac See Verified 07/10/17 18:15 Comments All systems ED: reviewed and negative except as stated. Constitutional: Denies: fever Eyes: Denies: vision change Cardiovascular: Reports: chest pain Respiratory: Reports: cough, dyspnea, sputum production Gastrointestinal: Reports: abdominal pain, nausea, diarrhea, melena Genitourinary: Denies: dysuria Neurological: Denies: headache Psychiatric: Reports: anxiety Endocrine: Reports: fatigue Past Medical History - Past Medical History Attestation: Yes The following information was validated with the patient. 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 OUT MACHINE OPERATOR history - Social History Smoking Status: Current every day smoker Smokeless Tobacco Status: No Alcohol use: Reports: none Drug use: Reports: none Physical Exam - General Limitations: no limitations General appearance: alert, in no apparent distress - Head Head exam: atraumatic, normocephalic, normal inspection - Eye Eye exam: Present: normal appearance, PERRL, EOMI - ENT ENT exam: normal exam, normal oropharynx, mucous membranes moist - Chest Chest inspection: Present: normal inspection, symmetric chest wall rise - Respiratory Respiratory exam: Present: normal lung sounds bilaterally - Cardiovascular Cardiovascular exam: Present: normal rhythm, tachycardia, normal heart sounds. Absent: regular rate - Abdominal Exam Abdominal exam: Present: soft, Non-Tender. Absent: tenderness, distention, guarding, rebound - Extremities Exam Extremities exam: Present: normal inspection, full ROM. Absent: tenderness, pedal edema - Neurological Exam Neurological exam: Present: alert, oriented X3 - Psychiatric Psychiatric exam: Present: anxious - Skin Skin exam: Present: warm, dry, intact, normal color Course Course Narrative: Patient presenting with shortness of breath, chest discomfort and melena. Workup started for GI bleed versus COPD exacerbation. Will sign out to the nighttime team doctors Fahad Cruz and Antoinette. Vital Signs Temperature 98.8 F 07/10/17 18:10 Pulse Rate 113 07/10/17 18:10 Respiratory Rate 22 07/10/17 18:10 Blood Pressure 169/107 07/10/17 18:10 O2 Sat by Pulse Oximetry 95 07/10/17 18:10 Temperature 98.8 F 07/10/17 18:10 Pulse Rate 113 07/10/17 18:10 Respiratory Rate 22 07/10/17 18:10 Blood Pressure 169/107 07/10/17 18:10 O2 Sat by Pulse Oximetry 95 07/10/17 18:10 Oxygen Delivery Oxygen Delivery Room Air
--- NOTE | 2017-07-10 18:15 | Emergency Department Note ---
Disposition Clinical Impression: COPD (chronic obstructive pulmonary disease), Dyspnea, Acute exacerbation of CHF (congestive heart failure), Melena, Elevated troponin Disposition: Admitted As Inpatient Condition: Fair General Adult HPI - General Chief complaint: ED Shortness of Breath/Dyspnea Stated complaint: DENIZ Time Seen by Provider: 07/10/17 18:11 - Related Data Home Medications Medication Instructions Recorded Confirmed Albuterol Sulfate [Albuterol 2 puff IH Q4HR PRN 06/15/15 07/10/17 Inhaler] Nitroglycerin [Nitrostat] 0.4 mg SL Q5M PRN 06/15/15 07/10/17 Oxycodone HCl [Oxaydo] 7.5 mg PO Q6H PRN 04/25/17 07/10/17 Albuterol Neb [Proventil Neb] 2.5 mg IH Q6H PRN 07/10/17 07/10/17 Previous Rx's Medication Instructions Recorded Bumetanide [Bumex] 0.5 mg PO DAILY #15 tablet 06/26/17 Isosorbide MONOnitrate (24 HR) 60 mg PO DAILY #30 tab.er.24h 06/26/17 [Imdur] Potassium Chloride 10 meq PO DAILY #30 tab.er.prt 06/26/17 Allergies Allergy/AdvReac Type Severity Reaction Status Date / Time Erythromycin Base Allergy Vomiting Verified 07/10/17 18:15 Penicillins [PCN] Allergy Rash Verified 07/10/17 18:15 codeine AdvReac Nausea Verified 07/10/17 18:15 indapamide [From Lozol] AdvReac See Verified 07/10/17 18:15 Comments Past Medical History - Past Medical History Medical history: Reports: cardiomyopathy, COPD, coronary artery disease, diabetes, GERD, GI bleed, hyperlipidemia, hypertension, myocardial infarction, peripheral artery disease, renal disease Surgical history: Reports: angioplasty/stent, appendectomy, hysterectomy, orthopedic, other Psychiatric history: Reports: depression 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 history: 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: no 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 DIRECTOR history - Social History Smoking Status: Current every day smoker Smokeless Tobacco Status: No Alcohol use: Reports: none Drug use: Reports: none Course Vital Signs Temperature 98.8 F 07/10/17 18:10 Pulse Rate 113 07/10/17 18:10 Respiratory Rate 22 07/10/17 18:10 Blood Pressure 169/107 07/10/17 18:10 O2 Sat by Pulse Oximetry 95 07/10/17 18:10 Temperature 97.9 F 07/11/17 05:12 Pulse Rate 86 07/11/17 08:00 Respiratory Rate 17 07/11/17 08:00 Blood Pressure 168/81 07/11/17 08:00 O2 Sat by Pulse Oximetry 99 07/11/17 08:00 Oxygen Delivery Oxygen Delivery Nasal Cannula Medical Decision Making - Lab Data Result diagrams: 07/11/17 04:42 07/11/17 04:42 Lab Results 07/10/17 07/10/17 07/10/17 Range/Units 18:44 18:44 18:44 WBC 12.4 H (4.3-11.1) K/mcL RBC 3.51 L (3.82-4.97) M/mcL Hgb 9.2 L (11.5-15.4) g/dL Hct 28.9 L (35.3-44.9) % MCV 82.3 L (83.0-100.0) fL MCH 26.2 L (28.0-33.3) pg MCHC 31.8 (31.6-35.5) g/dL RDW 15.3 H (11.5-14.5) % Plt Count 338 (140-400) K/mcL MPV 10.3 (9.4-12.4) fL Immature Gran % 0.2 (0-4) % Seg Neutrophils % 74.1 % Lymphocytes % 15.5 % Monocytes % 4.9 % Eosinophils % 4.5 % Basophils % 0.8 % Neutrophils # 9.2 H (1.6-8.9) K/mcL Lymphocytes # 1.9 (0.6-4.6) K/mcL Monocytes # 0.6 (0.0-1.3) K/mcL Eosinophils # 0.6 (0.0-0.6) K/mcL Basophils # 0.1 (0.0-0.2) K/mcL Immature Plt Fraction 2.6 (1.1-6.1) % Sodium 141 (136-145) mEq/L Potassium 3.9 (3.5-4.5) mEq/L Chloride 110 H (98-109) mEq/L Carbon Dioxide 19 (19-29) mEq/L BUN 28 H (7-20) mg/dL Creatinine 2.29 H (0.57-1.11) mg/dL Est GFR ( Amer) 25 L (> 60) Est GFR (Non-Af Amer) 21 L (> 60) BUN/Creatinine Ratio 12 (6-26) Glucose 156 H (70-99) mg/dL Calculated Osmolality 301 H (280-300) Lactic Acid 1.1 (0.5-2.2) mmol/L Calcium 9.0 (8.6-10.8) mg/dL Troponin I (0-0.03) ng/mL B-Natriuretic Peptide (0-100) pg/mL Urine Color (Yellow) Urine Clarity (Clear) Urine pH (5.0-8.0) pH Units Ur Specific [place] (1.010-1.025) Urine Protein (Neg-Trace) mg/dL Urine Glucose (UA) (Normal) mg/dL Urine Ketones (Negative) mg/dL Urine Blood (Negative) Urine Nitrite (Negative) Urine Bilirubin (Negative) Urine Urobilinogen (Normal) mg/dL Ur Leukocyte Esterase (Negative) Urine Microscopic RBC (0-3) per hpf Urine Microscopic WBC (0-3) per hpf Ur Squamous Epith Cells (None-Few) per lpf Urine Bacteria (None-Few) per hpf Hyaline Casts (None-Few) per lpf Ur Culture Indicated? (NO) Stool Occult Blood (Negative) Blood Type Antibody Screen 07/10/17 07/10/17 07/10/17 Range/Units 18:44 18:44 18:44 WBC (4.3-11.1) K/mcL RBC (3.82-4.97) M/mcL Hgb (11.5-15.4) g/dL Hct (35.3-44.9) % MCV (83.0-100.0) fL MCH (28.0-33.3) pg MCHC (31.6-35.5) g/dL RDW (11.5-14.5) % Plt Count (140-400) K/mcL MPV (9.4-12.4) fL Immature Gran % (0-4) % Seg Neutrophils % % Lymphocytes % % Monocytes % % Eosinophils % % Basophils % % Neutrophils # (1.6-8.9) K/mcL Lymphocytes # (0.6-4.6) K/mcL Monocytes # (0.0-1.3) K/mcL Eosinophils # (0.0-0.6) K/mcL Basophils # (0.0-0.2) K/mcL Immature Plt Fraction (1.1-6.1) % Sodium (136-145) mEq/L Potassium (3.5-4.5) mEq/L Chloride (98-109) mEq/L Carbon Dioxide (19-29) mEq/L BUN (7-20) mg/dL Creatinine (0.57-1.11) mg/dL Est GFR ( Amer) (> 60) Est GFR (Non-Af Amer) (> 60) BUN/Creatinine Ratio (6-26) Glucose (70-99) mg/dL Calculated Osmolality (280-300) Lactic Acid (0.5-2.2) mmol/L Calcium (8.6-10.8) mg/dL Troponin I 0.19 H* (0-0.03) ng/mL B-Natriuretic Peptide 3236 H (0-100) pg/mL Urine Color (Yellow) Urine Clarity (Clear) Urine pH (5.0-8.0) pH Units Ur Specific [place] (1.010-1.025) Urine Protein (Neg-Trace) mg/dL Urine Glucose (UA) (Normal) mg/dL Urine Ketones (Negative) mg/dL Urine Blood (Negative) Urine Nitrite (Negative) Urine Bilirubin (Negative) Urine Urobilinogen (Normal) mg/dL Ur Leukocyte Esterase (Negative) Urine Microscopic RBC (0-3) per hpf Urine Microscopic WBC (0-3) per hpf Ur Squamous Epith Cells (None-Few) per lpf Urine Bacteria (None-Few) per hpf Hyaline Casts (None-Few) per lpf Ur Culture Indicated? (NO) Stool Occult Blood (Negative) Blood Type A POSITIVE Antibody Screen NEGATIVE 07/10/17 07/10/17 Range/Units 19:45 19:46 WBC (4.3-11.1) K/mcL RBC (3.82-4.97) M/mcL Hgb (11.5-15.4) g/dL Hct (35.3-44.9) % MCV (83.0-100.0) fL MCH (28.0-33.3) pg MCHC (31.6-35.5) g/dL RDW (11.5-14.5) % Plt Count (140-400) K/mcL MPV (9.4-12.4) fL Immature Gran % (0-4) % Seg Neutrophils % % Lymphocytes % % Monocytes % % Eosinophils % % Basophils % % Neutrophils # (1.6-8.9) K/mcL Lymphocytes # (0.6-4.6) K/mcL Monocytes # (0.0-1.3) K/mcL Eosinophils # (0.0-0.6) K/mcL Basophils # (0.0-0.2) K/mcL Immature Plt Fraction (1.1-6.1) % Sodium (136-145) mEq/L Potassium (3.5-4.5) mEq/L Chloride (98-109) mEq/L Carbon Dioxide (19-29) mEq/L BUN (7-20) mg/dL Creatinine (0.57-1.11) mg/dL Est GFR ( Amer) (> 60) Est GFR (Non-Af Amer) (> 60) BUN/Creatinine Ratio (6-26) Glucose (70-99) mg/dL Calculated Osmolality (280-300) Lactic Acid (0.5-2.2) mmol/L Calcium (8.6-10.8) mg/dL Troponin I (0-0.03) ng/mL B-Natriuretic Peptide (0-100) pg/mL Urine Color Yellow (Yellow) Urine Clarity Cloudy A (Clear) Urine pH 6.0 (5.0-8.0) pH Units Ur Specific [place] 1.016 (1.010-1.025) Urine Protein >=1000 H (Neg-Trace) mg/dL Urine Glucose (UA) 100 H (Normal) mg/dL Urine Ketones Negative (Negative) mg/dL Urine Blood Moderate H (Negative) Urine Nitrite Negative (Negative) Urine Bilirubin Negative (Negative) Urine Urobilinogen Normal (Normal) mg/dL Ur Leukocyte Esterase Negative (Negative) Urine Microscopic RBC 5-15 H (0-3) per hpf Urine Microscopic WBC 0-3 (0-3) per hpf Ur Squamous Epith Cells Many H (None-Few) per lpf Urine Bacteria None Seen (None-Few) per hpf Hyaline Casts None Seen (None-Few) per lpf Ur Culture Indicated? NO (NO) Stool Occult Blood Positive A (Negative) Blood Type Antibody Screen Attestation Statement - Attestation Attestation: I examined this patient and my medical decision-making was reviewed with the Resident Physician. I agree with the documented findings, disposition and treatment plan as described except to the extent set forth below. [id number] time performed in conjunction with the resident physician Dr. Gordillo Patient presents by EMS complaining of dyspnea and dark-colored stools. Concern for melanotic stools on exam Care to be endorsed to the oncoming physician Dr.N. Cruz at 7pm pending labs and re-eval
[2017-07-10 18:53] LABS: Basophils # 0.1 K/mcL (0.0-0.2); Basophils % 0.8 %; Eosinophils # 0.6 K/mcL (0.0-0.6); Eosinophils % 4.5 %; Hematocrit 28.9 % (35.3-44.9); Hemoglobin 9.2 g/dL (11.5-15.4); Immature Granulocytes % 0.2 % (0-4); Immature Platelets 2.6 % (1.1-6.1); Lymphocytes # 1.9 K/mcL (0.6-4.6); Lymphocytes % 15.5 %; Mean Corpuscular HGB Conc 31.8 g/dL (31.6-35.5); Mean Corpuscular Hemoglobin 26.2 pg (28.0-33.3); Mean Corpuscular Volume 82.3 fL (83.0-100.0); Mean Platelet Volume 10.3 fL (9.4-12.4); Monocytes # 0.6 K/mcL (0.0-1.3); Monocytes % 4.9 %; Neutrophils # 9.2 K/mcL (1.6-8.9); Platelet Count 338 K/mcL (140-400); Red Blood Count 3.51 M/mcL (3.82-4.97); Red Cell Distribution Width 15.3 % (11.5-14.5); Segmented Neutrophils % 74.1 %
[2017-07-10 19:05] LABS: Potassium 3.9 mEq/L (3.5-4.5)
--- NOTE | 2017-07-10 19:12 | Emergency Department Note ---
Disposition Clinical Impression: Melena, Elevated troponin COPD (chronic obstructive pulmonary disease) Qualifiers: COPD type: unspecified COPD Qualified Code(s): J44.9 - Chronic obstructive pulmonary disease, unspecified Dyspnea Qualifiers: Dyspnea type: unspecified Qualified Code(s): R06.00 - Dyspnea, unspecified Acute exacerbation of CHF (congestive heart failure) Qualifiers: Congestive heart failure type: unspecified congestive heart failure type Qualified Code(s): I50.9 - Heart failure, unspecified Disposition: Admitted As Inpatient Condition: Fair Forms: ED Satisfaction Letter Time of Disposition: 21:00 General Adult HPI - General Chief complaint: ED Shortness of Breath/Dyspnea Stated complaint: DENIZ Time Seen by Provider: 07/10/17 18:11 Source: patient, EMS Mode of arrival: EMS Limitations: no limitations Nursing Notes Reviewed: Yes Vital Signs Reviewed: Yes - History of Present Illness Pain Scale: 8 - Related Data Home Medications Medication Instructions Recorded Confirmed Albuterol Sulfate [Albuterol 2 puff IH Q4HR PRN 06/15/15 04/25/17 Inhaler] Nitroglycerin [Nitrostat] 0.4 mg SL Q5M PRN 06/15/15 04/25/17 Oxycodone HCl [Oxaydo] 5 mg PO Q6H PRN 04/25/17 04/25/17 Albuterol Neb [Proventil Neb] 2.5 mg IH Q6H PRN 07/10/17 07/10/17 Previous Rx's Medication Instructions Recorded Bumetanide [Bumex] 0.5 mg PO DAILY #15 tablet 06/26/17 Isosorbide MONOnitrate (24 HR) 60 mg PO DAILY #30 tab.er.24h 06/26/17 [Imdur] Potassium Chloride 10 meq PO DAILY #30 tab.er.prt 06/26/17 Allergies Allergy/AdvReac Type Severity Reaction Status Date / Time Erythromycin Base Allergy Vomiting Verified 07/10/17 18:15 Penicillins [PCN] Allergy Rash Verified 07/10/17 18:15 codeine AdvReac Nausea Verified 07/10/17 18:15 indapamide [From Lozol] AdvReac See Verified 07/10/17 18:15 Comments Constitutional: Denies: fever Eyes: Denies: vision change Cardiovascular: Reports: chest pain Respiratory: Reports: cough, dyspnea, sputum production Gastrointestinal: Reports: abdominal pain, nausea, diarrhea, melena Genitourinary: Denies: dysuria Neurological: Denies: headache Psychiatric: Reports: anxiety Endocrine: Reports: fatigue Past Medical History - Past Medical History Medical history: Reports: cardiomyopathy, COPD, coronary artery disease, diabetes, GERD, GI bleed, hyperlipidemia, hypertension, myocardial infarction, peripheral artery disease, renal disease Surgical history: Reports: angioplasty/stent, appendectomy, hysterectomy, orthopedic, other Psychiatric history: Reports: depression 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 Gordillo. 71-year-old female with recent worsening shortness of breath, sharp chest pains, diarrhea with melena over the last few days. Labs pending. Concern for COPD exacerbation versus GI bleed. - Reevaluation(s) Reevaluation #1: Chest x-ray and CT scan show signs of acute pulmonary edema. 40 mg IV Lasix as well as nitroglycerin ordered. She has been hypertensive here with her blood pressure systolic in the 200s. She did improve after nitroglycerin down to systolic 160s. Her chest discomfort also improved significantly. Rectal exam was done and stool Hemoccult sent. This came back positive for blood. troponin elevated at 0.19, suspect more secondary to demand ischemia. We will admit for acute CHF exacerbation as well as possible GI bleed, elevated trop. Discussed with hospitalist Dr. Matthews who has accepted patient for admission. Time: 22:37 Vital Signs Temperature 98.8 F 07/10/17 18:10 Pulse Rate 113 07/10/17 18:10 Respiratory Rate 22 07/10/17 18:10 Blood Pressure 169/107 07/10/17 18:10 O2 Sat by Pulse Oximetry 95 07/10/17 18:10 Temperature 98.8 F 07/10/17 18:10 Pulse Rate 113 07/10/17 18:10 Respiratory Rate 22 07/10/17 18:10 Blood Pressure 169/107 07/10/17 18:10 O2 Sat by Pulse Oximetry 95 07/10/17 18:10 Oxygen Delivery Oxygen Delivery Room Air Medical Decision Making - Medical Records Medical records reviewed: Yes I reviewed the patient's medical records. - Lab Data Lab results reviewed: Yes I reviewed the patient's lab results. Result diagrams: 07/10/17 18:44 07/10/17 18:44 Lab Results 07/10/17 07/10/17 07/10/17 Range/Units 18:44 18:44 18:44 WBC 12.4 H (4.3-11.1) K/mcL RBC 3.51 L (3.82-4.97) M/mcL Hgb 9.2 L (11.5-15.4) g/dL Hct 28.9 L (35.3-44.9) % MCV 82.3 L (83.0-100.0) fL MCH 26.2 L (28.0-33.3) pg MCHC 31.8 (31.6-35.5) g/dL RDW 15.3 H (11.5-14.5) % Plt Count 338 (140-400) K/mcL MPV 10.3 (9.4-12.4) fL Immature Gran % 0.2 (0-4) % Seg Neutrophils % 74.1 % Lymphocytes % 15.5 % Monocytes % 4.9 % Eosinophils % 4.5 % Basophils % 0.8 % Neutrophils # 9.2 H (1.6-8.9) K/mcL Lymphocytes # 1.9 (0.6-4.6) K/mcL Monocytes # 0.6 (0.0-1.3) K/mcL Eosinophils # 0.6 (0.0-0.6) K/mcL Basophils # 0.1 (0.0-0.2) K/mcL Immature Plt Fraction 2.6 (1.1-6.1) % Sodium 141 (136-145) mEq/L Potassium 3.9 (3.5-4.5) mEq/L Chloride 110 H (98-109) mEq/L Carbon Dioxide 19 (19-29) mEq/L BUN 28 H (7-20) mg/dL Creatinine 2.29 H (0.57-1.11) mg/dL Est GFR ( Amer) 25 L (> 60) Est GFR (Non-Af Amer) 21 L (> 60) BUN/Creatinine Ratio 12 (6-26) Glucose 156 H (70-99) mg/dL Calculated Osmolality 301 H (280-300) Lactic Acid 1.1 (0.5-2.2) mmol/L Calcium 9.0 (8.6-10.8) mg/dL - Radiology Data Radiology results reviewed: Yes I reviewed the patient's radiology results. Chest X-Ray 07/10/17 18:14 IMPRESSION: 1. Cardiomegaly with pulmonary edema and bilateral effusions and associated atelectasis, left greater than right. D/ / Octavio Mccormack MD / Octavio Mccormack MD Interpreting Provider: Octavio Mccormack MD - EKG Data EKG #1 EKG attestation: Yes I reviewed and interpreted this EKG. EKG results narrative: EKG done at 1840 shows sinus tachycardia with a rate of [address] elevation. There is ST depression in V5 and V6.
[2017-07-10] MEDS ORDERED: Furosemide 40 MG/4 ML VIAL IVP ONE (19:20)
--- NOTE | 2017-07-10 19:26 | Emergency Department Note ---
START Narrative - START START: I examined this patient and my medical decision-making was reviewed with the Resident Physician. I agree with the documented findings, disposition and treatment plan as described except to the extent set forth below. Accepted sign out from the day team (Luis), this is a 71 year old female with history of CHf/COPD and exertional dyspnea she was tachycardiac on arrival. Sign out relays that she also had nausea/vomitting and diarrhea during her stay here she had a large amount of melenic diarrhea in the bed and they are now concerned for a GI bleed. labs corrleate with GI bleed with an elevated troponin and elevated BUN/Crn. Patient also has a BNP> 3000 which is also elevated for her. Her hgb of 9.2. No need for transfusion at this time, although we will obtain a ABCT to rule out any other intraabdominla pathology. Plan is to admit to medicine.
[2017-07-10] MEDS ORDERED: Nitroglycerin 0.4 MG TAB.SUBL SL PRN ×2 (20:15→21:54)
[2017-07-10 20:22] LABS: Bilirubin,Urine Negative (Negative); Blood,Urine Moderate (Negative); Clarity,Urine Cloudy (Clear); Color,Urine Yellow (Yellow); Glucose,Urine (UA) 100 mg/dL (Normal); Ketones,Urine Negative (Negative); Leukocyte Esterase,Urine Negative (Negative); Nitrite,Urine Negative (Negative); Protein,Urine >=1000 mg/dL (Neg-Trace); Specific Gravity,Urine 1.016 (1.010-1.025); Urobilinogen,Urine Normal (Normal)
[2017-07-10 20:29] LABS: Bacteria,Urine None Seen per hpf (None-Few); Hyaline Casts,Urine None Seen per lpf (None-Few); Squamous Epithelial Cell,Urine Many per lpf (None-Few); WBC,Urine 0-3 per hpf (0-3)
[2017-07-10] MEDS ORDERED: *HR* Metoprolol 5 MG/5 ML VIAL IVP ONE (21:20)
[2017-07-10] MEDS ORDERED: Naloxone 0.4 MG/ML INJ IVP PRN (21:32)
[2017-07-10] MEDS ORDERED: Albuterol 2.5 MG/3 ML NEBULIZER IH PRN (21:54)
--- NOTE | 2017-07-10 22:07 | Internal Med History&Physical ---
Date of Encounter: 07/10/17 Time of Encounter: 21:58 Assessment and Plan (1) Acute on chronic diastolic (congestive) heart failure Current visit: Yes Status: Acute Patient presents with shortness of breath, worse when laying flat. CXR consistent with acute CHF. BNP elevated to 3236. Patient has history of diastolic CHF and ischemic cardiomyopathy. Last Echo in April showed LVEF of 50- 55% and moderate diastolic dysfunction. She takes 0.5mg of bumex daily at home. She was given 40mg IVP lasix in ED. Continue with 40mg IVP BID cardiac diet with 1.5L fluid restriction daily weights strict I/Os continuous security monitor Cardiology consulted. (2) Hypertensive urgency Current visit: Yes Status: Acute Patient presented with shortness of breath and intermittent chest heaviness. Blood pressures initially were 200/100, down to 170s/100s after SL nitro. metoprolol IVP given in ED as well. Likely secondary to CHF exacerbation. (3) COPD (chronic obstructive pulmonary disease) Current visit: Yes Status: Chronic Patient is having increased shortness of breath and non-productive cough. Her clinical picture is more consistent with CHF exacerbation than COPD. Continue home medications for COPD. Qualifiers: COPD type: unspecified COPD Qualified Code(s): J44.9 - Chronic obstructive pulmonary disease, unspecified (4) Acute kidney injury superimposed on chronic kidney disease Current visit: Yes Status: Acute Creatinine of 2.29 up from previous value of 1.9. Patient has acute CHF and this is likely cardio-renal. She is being diuresed with lasix. Will check chemistry daily. (5) Elevated troponin Current visit: Yes Status: Acute Troponin of 0.19 in the setting of acute CHF exacerbation, likely demand ischemia. Continuous security monitor. Serial troponins. (6) Melena Current visit: Yes Status: Acute Patient reporting dark stools for the past 3 days. FOB +. She reportedly had colonoscopy and EGD at outside hospital in December for similar symptoms. Hgb is stable. Will recheck H/H Q6hr. Protonix 40mg IVP BID. Consider consult to gastroenterology. (7) DM (diabetes mellitus), type 2 Current visit: Yes Status: Chronic diabetic, heart healthy diet check blood sugars ACHS sliding scale correction dose ACHS hypoglycemic protocol. 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 Given concern for GI bleed with Melena and + FOB, pharmacologic prophylaxis is contraindicated. Internal Medicine - H&P: HPI Chief complaint: shortness of breath Admitted From: Emergency Dept Plans for Post Hospital Care: Home History of present illness: Ms. Nur is a 71 year old female with COPD, CAD s/p stent placement, CHF, type 2 DM, CKD, GI bleed, ischemic cardiomyopathy, hypertension, hyperlipidemia presented to the ED today with complaints of shortness of breath. She reports worsening shortness of breath over the last 4-5 days, worse when lying flat. She reports a non-productive cough, occasional lightheadedness, chest heaviness on and off. She reports poor appetite, but denies nausea, vomiting, abdominal pain. She reports having some diarrhea 3 or 4 days ago, she then took some immodium and has had black stools each morning since. Evaluation in the ED included CT of the abdomen and pelvis which showed no acute abdominal abnormality, but did show moderate layering bilateral pleural effusions with septal thickening suggesting acute CHF. CXR showed cardiomegaly with pulmonary edema and bilateral effusions. BNP was elevated to 3236. Troponin was also elevated to 0.19. She has LOUANN on CKD with creatinine of 2.29, up from previous of 1.9. She is anemic with Hgb of 9.2, but that is consistent with previous values. On exam, patient is alert and oriented in no distress. She is mildly tachypnic and has crackles in bilateral bases. Heart has tachycardic, regular rate. Abdomen is soft, non-tender, with positive bowel sounds. Trace BLE edema. Past Med Surg Social Fam HX - Past Medical History Medical history: cardiomyopathy, CHF, COPD, coronary artery disease, diabetes, GERD, GI bleed, hyperlipidemia, hypertension, myocardial infarction, peripheral artery disease, renal disease Psychiatric history: depression - Past Surgical History Surgical History: angioplasty/stent, appendectomy, hysterectomy, orthopedic, other - Social History Smoking Status: Current every day smoker Smokeless Tobacco Status: No Alcohol use: none Drug use: none - Family History Father Adopted: No Family Member Ethnicity: Non- Living Status: Hx Family Cardiac Disorders: Yes (heart disease and heart attack) Hx Family Respiratory Disorders: Yes Hx Family Cancer: Yes (Lung cancer) Hx Family GI Disorders: No Hx Family Endocrine Disorder: Yes Hx Family Neuromuscular Disorders: No Hx Family Neurologic Disorders: No Hx Family HEENT Disorders: No Hx Family Autoimmune Disorders: No Mother Adopted: No Living Status: Hx Family Cardiac Disorders: Yes Hx Family Respiratory Disorders: Yes Hx Family Cancer: No Hx Family GI Disorders: Yes Hx Family Endocrine Disorder: Yes (Diabetes) Hx Family Neuromuscular Disorders: No Hx Family Neurologic Disorders: No Hx Family HEENT Disorders: No Hx Family Autoimmune Disorders: No Internal Medicine - H&P: Meds Albuterol Sulfate [Albuterol Inhaler] 2 puff IH Q4HR PRN 06/15/15 [History] Nitroglycerin [Nitrostat] 0.4 mg SL Q5M PRN 06/15/15 [History] Oxycodone HCl [Oxaydo] 7.5 mg PO Q6H PRN 04/25/17 [History] Bumetanide [Bumex] 0.5 mg PO DAILY #15 tablet 06/26/17 [Rx] Isosorbide MONOnitrate (24 HR) [Imdur] 60 mg PO DAILY #30 tab.er.24h 06/26/17 [ Rx] Potassium Chloride 10 meq PO DAILY #30 tab.er.prt 06/26/17 [Rx] Albuterol Neb [Proventil Neb] 2.5 mg IH Q6H PRN 07/10/17 [History] 3 Allergy/AdvReac Type Severity Reaction Status Date / Time Erythromycin Base Allergy Vomiting Verified 07/10/17 18:15 Penicillins [PCN] Allergy Rash Verified 07/10/17 18:15 codeine AdvReac Nausea Verified 07/10/17 18:15 indapamide [From Lozol] AdvReac See Verified 07/10/17 18:15 Comments All Systems PM: A 10-system review of systems was performed and is negative for pertinent findings except as documented above in the HPI. - Constitutional Constitutional: anorexia, no chills, no fever(s), no night sweats - EENT Eyes: no change in vision, no discharge, no pain, no photophobia Ears: no ear discharge, no ear pain, no tinnitus Nose, mouth and throat: no dysphagia, no nasal discharge, no neck pain, no sore throat - Cardiovascular Cardiovascular ROS IM: chest pain, dyspnea, dyspnea on exertion, lightheadedness , orthopnea, paroxysmal nocturnal dyspnea, no diaphoresis, no palpitations, no syncope - Respiratory Respiratory: cough, dyspnea, no wheezing, no excessive phlegm production - Gastrointestinal Gastrointestinal: melena, no abdominal pain, no diarrhea, no hematemesis, no hematochezia, no nausea, no vomiting - Genitourinary Genitourinary: no change in urinary stream, no dysuria, no flank pain, no hematuria - Musculoskeletal Musculoskeletal ROS IM: no numbness, no tingling - Integumentary Integumentary IM: no rash, no unusual bruising - Neurological Neurological ROS: no confusion, no convulsions, no focal weakness, no numbness, no tingling, no tremor(s) - Hematologic/Lymphatic Hematologic/Lymphatic: no easy bruising - Constitutional Vitals: Temp Pulse Resp BP Pulse Ox 98.8 F 110 20 176/119 98 07/10/17 18:10 07/10/17 20:49 07/10/17 20:49 07/10/17 20:49 07/10/17 20:49 General appearance: Present: A&O X 3, pleasant, no acute distress - Head Head exam: Present: atraumatic, normocephalic - Eye Eye exam: Present: PERRL, conjuntiva pink, sclera anicteric Pupils: Present: PERRL - Neck Neck exam general surgery: Present: supple, trachea midline. Absent: lymphadenopathy - Respiratory Respiratory exam: Present: rales (bilateral bases), tachypnea. Absent: accessory muscle use, rhonchi, wheezes - Cardiovascular Cardiovascular exam: Present: RRR, +S1, +S2, tachycardia. Absent: diastolic murmur, gallop, rubs, systolic murmur - GI/Abdominal GI/Abdominal exam: Present: normal bowel sounds, soft, no peritoneal signs. Absent: distended, tenderness - Extremities Exam Extremities exam: Present: warm, radial pulses palpable and symmetrical. Absent : calf tenderness, cyanotic, pedal edema - Neurological Exam Neurological exam: Present: CN II-XII intact, oriented X3, no focal deficits. Absent: pronater drift, facial droop, speech deficit - Skin Skin exam: Present: dry, intact Internal Med - H&P Results - Labs CBC & Chem 7: 07/10/17 18:44 07/10/17 18:44 Labs: All Lab Results (24 Hours) 07/10/17 07/10/17 07/10/17 Range/Units 18:44 18:44 18:44 WBC 12.4 H (4.3-11.1) K/mcL RBC 3.51 L (3.82-4.97) M/mcL Hgb 9.2 L (11.5-15.4) g/dL Hct 28.9 L (35.3-44.9) % MCV 82.3 L (83.0-100.0) fL MCH 26.2 L (28.0-33.3) pg MCHC 31.8 (31.6-35.5) g/dL RDW 15.3 H (11.5-14.5) % Plt Count 338 (140-400) K/mcL MPV 10.3 (9.4-12.4) fL Immature Gran % 0.2 (0-4) % Seg Neutrophils % 74.1 % Lymphocytes % 15.5 % Monocytes % 4.9 % Eosinophils % 4.5 % Basophils % 0.8 % Neutrophils # 9.2 H (1.6-8.9) K/mcL Lymphocytes # 1.9 (0.6-4.6) K/mcL Monocytes # 0.6 (0.0-1.3) K/mcL Eosinophils # 0.6 (0.0-0.6) K/mcL Basophils # 0.1 (0.0-0.2) K/mcL Immature Plt Fraction 2.6 (1.1-6.1) % Sodium 141 (136-145) mEq/L Potassium 3.9 (3.5-4.5) mEq/L Chloride 110 H (98-109) mEq/L Carbon Dioxide 19 (19-29) mEq/L BUN 28 H (7-20) mg/dL Creatinine 2.29 H (0.57-1.11) mg/dL Est GFR ( Amer) 25 L (> 60) Est GFR (Non-Af Amer) 21 L (> 60) BUN/Creatinine Ratio 12 (6-26) Glucose 156 H (70-99) mg/dL Calculated Osmolality 301 H (280-300) Lactic Acid 1.1 (0.5-2.2) mmol/L Calcium 9.0 (8.6-10.8) mg/dL Troponin I (0-0.03) ng/mL B-Natriuretic Peptide (0-100) pg/mL Urine Color (Yellow) Urine Clarity (Clear) Urine pH (5.0-8.0) pH Units Ur Specific Grant (1.010-1.025) Urine Protein (Neg-Trace) mg/dL Urine Glucose (UA) (Normal) mg/dL Urine Ketones (Negative) mg/dL Urine Blood (Negative) Urine Nitrite (Negative) Urine Bilirubin (Negative) Urine Urobilinogen (Normal) mg/dL Ur Leukocyte Esterase (Negative) Urine Microscopic RBC (0-3) per hpf Urine Microscopic WBC (0-3) per hpf Ur Squamous Epith Cells (None-Few) per lpf Urine Bacteria (None-Few) per hpf Hyaline Casts (None-Few) per lpf Ur Culture Indicated? (NO) Stool Occult Blood (Negative) Blood Type Antibody Screen 07/10/17 07/10/17 07/10/17 Range/Units 18:44 18:44 18:44 WBC (4.3-11.1) K/mcL RBC (3.82-4.97) M/mcL Hgb (11.5-15.4) g/dL Hct (35.3-44.9) % MCV (83.0-100.0) fL MCH (28.0-33.3) pg MCHC (31.6-35.5) g/dL RDW (11.5-14.5) % Plt Count (140-400) K/mcL MPV (9.4-12.4) fL Immature Gran % (0-4) % Seg Neutrophils % % Lymphocytes % % Monocytes % % Eosinophils % % Basophils % % Neutrophils # (1.6-8.9) K/mcL Lymphocytes # (0.6-4.6) K/mcL Monocytes # (0.0-1.3) K/mcL Eosinophils # (0.0-0.6) K/mcL Basophils # (0.0-0.2) K/mcL Immature Plt Fraction (1.1-6.1) % Sodium (136-145) mEq/L Potassium (3.5-4.5) mEq/L Chloride (98-109) mEq/L Carbon Dioxide (19-29) mEq/L BUN (7-20) mg/dL Creatinine (0.57-1.11) mg/dL Est GFR ( Amer) (> 60) Est GFR (Non-Af Amer) (> 60) BUN/Creatinine Ratio (6-26) Glucose (70-99) mg/dL Calculated Osmolality (280-300) Lactic Acid (0.5-2.2) mmol/L Calcium (8.6-10.8) mg/dL Troponin I 0.19 H* (0-0.03) ng/mL B-Natriuretic Peptide 3236 H (0-100) pg/mL Urine Color (Yellow) Urine Clarity (Clear) Urine pH (5.0-8.0) pH Units Ur Specific Grant (1.010-1.025) Urine Protein (Neg-Trace) mg/dL Urine Glucose (UA) (Normal) mg/dL Urine Ketones (Negative) mg/dL Urine Blood (Negative) Urine Nitrite (Negative) Urine Bilirubin (Negative) Urine Urobilinogen (Normal) mg/dL Ur Leukocyte Esterase (Negative) Urine Microscopic RBC (0-3) per hpf Urine Microscopic WBC (0-3) per hpf Ur Squamous Epith Cells (None-Few) per lpf Urine Bacteria (None-Few) per hpf Hyaline Casts (None-Few) per lpf Ur Culture Indicated? (NO) Stool Occult Blood (Negative) Blood Type A POSITIVE Antibody Screen NEGATIVE 07/10/17 07/10/17 Range/Units 19:45 19:46 WBC (4.3-11.1) K/mcL RBC (3.82-4.97) M/mcL Hgb (11.5-15.4) g/dL Hct (35.3-44.9) % MCV (83.0-100.0) fL MCH (28.0-33.3) pg MCHC (31.6-35.5) g/dL RDW (11.5-14.5) % Plt Count (140-400) K/mcL MPV (9.4-12.4) fL Immature Gran % (0-4) % Seg Neutrophils % % Lymphocytes % % Monocytes % % Eosinophils % % Basophils % % Neutrophils # (1.6-8.9) K/mcL Lymphocytes # (0.6-4.6) K/mcL Monocytes # (0.0-1.3) K/mcL Eosinophils # (0.0-0.6) K/mcL Basophils # (0.0-0.2) K/mcL Immature Plt Fraction (1.1-6.1) % Sodium (136-145) mEq/L Potassium (3.5-4.5) mEq/L Chloride (98-109) mEq/L Carbon Dioxide (19-29) mEq/L BUN (7-20) mg/dL Creatinine (0.57-1.11) mg/dL Est GFR ( Amer) (> 60) Est GFR (Non-Af Amer) (> 60) BUN/Creatinine Ratio (6-26) Glucose (70-99) mg/dL Calculated Osmolality (280-300) Lactic Acid (0.5-2.2) mmol/L Calcium (8.6-10.8) mg/dL Troponin I (0-0.03) ng/mL B-Natriuretic Peptide (0-100) pg/mL Urine Color Yellow (Yellow) Urine Clarity Cloudy A (Clear) Urine pH 6.0 (5.0-8.0) pH Units Ur Specific Grant 1.016 (1.010-1.025) Urine Protein >=1000 H (Neg-Trace) mg/dL Urine Glucose (UA) 100 H (Normal) mg/dL Urine Ketones Negative (Negative) mg/dL Urine Blood Moderate H (Negative) Urine Nitrite Negative (Negative) Urine Bilirubin Negative (Negative) Urine Urobilinogen Normal (Normal) mg/dL Ur Leukocyte Esterase Negative (Negative) Urine Microscopic RBC 5-15 H (0-3) per hpf Urine Microscopic WBC 0-3 (0-3) per hpf Ur Squamous Epith Cells Many H (None-Few) per lpf Urine Bacteria None Seen (None-Few) per hpf Hyaline Casts None Seen (None-Few) per lpf Ur Culture Indicated? NO (NO) Stool Occult Blood Positive A (Negative) Blood Type Antibody Screen - Diagnostic Studies Chest x-ray Additional comments: Chest X-Ray 07/10/17 18:14 IMPRESSION: 1. Cardiomegaly with pulmonary edema and bilateral effusions and associated atelectasis, left greater than right. D/ / Octavio Mccormack MD / Octavio Mccormack MD Interpreting Provider: Octavio Mccormack MD CT scan - abdomen Additional comments: Abdomen/Pelvis CT 07/10/17 19:40 IMPRESSION: 1. No acute abdominopelvic abnormality. 2. Moderate layering bilateral pleural effusions with bibasilar atelectasis and interlobular septal thickening suggesting acute congestive heart failure. 3. 3.1 cm diameter fusiform infrarenal abdominal aortic aneurysm. See follow-up recommendations below. D/ / Carl Gabriel MD / Carl Gabriel MD Interpreting Provider: Carl Gabriel MD
[2017-07-10] MEDS ORDERED: *HR* Dextrose 50 % in Water (Syg) 50 ML SYRINGE IVP PRN (22:33)
[2017-07-10] MEDS ORDERED: D5% in Water 1,000 ML IVC PRN (22:33)
[2017-07-10] MEDS ORDERED: Dextrose Gel 15 GM PO PRN ×2 (22:33)
[2017-07-10 23:07] LABS: Hematocrit 29.1 % (35.3-44.9); Hemoglobin 9.1 g/dL (11.5-15.4)
[2017-07-10] MEDS: Ipratropium/Albuterol Neb 3 ML IH SCH (23:13)
[2017-07-10 23:17] LABS: Hemoglobin A1C 6.9 %
[2017-07-10] MEDS: MethylPREDNISolone 40 MG/ML VIAL IVP SCH (23:27)
[2017-07-10] MEDS: Nicotine 14 MG PATCH.TD24 TD SCH (23:27)
[2017-07-11] MEDS: amLODIPine 5 MG TABLET PO SCH (02:11)
[2017-07-11] MEDS: hydrALAZINE 25 MG TABLET PO SCH ×3 (02:11→22:21)
[2017-07-11] MEDS: Ipratropium/Albuterol Neb 3 ML IH SCH ×4 (03:42→20:50)
[2017-07-11 05:17] LABS: Basophils # 0.1 K/mcL (0.0-0.2); Basophils % 0.7 %; Eosinophils % 0.3 %; Hemoglobin 9.7 g/dL (11.5-15.4); Immature Granulocytes % 0.5 % (0-4); Lymphocytes # 0.6 K/mcL (0.6-4.6); Lymphocytes % 5.3 %; Mean Corpuscular HGB Conc 32.3 g/dL (31.6-35.5); Mean Corpuscular Hemoglobin 26.7 pg (28.0-33.3); Mean Corpuscular Volume 82.6 fL (83.0-100.0); Mean Platelet Volume 10.5 fL (9.4-12.4); Monocytes # 0.1 K/mcL (0.0-1.3); Monocytes % 0.7 %; Neutrophils # 9.9 K/mcL (1.6-8.9); Platelet Count 322 K/mcL (140-400); Red Blood Count 3.63 M/mcL (3.82-4.97); Red Cell Distribution Width 15.3 % (11.5-14.5); Segmented Neutrophils % 92.5 %
[2017-07-11 05:21] LABS: Calcium 9.2 mg/dL (8.6-10.8); Chol/HDL Ratio 7.9 (0-4.9)
[2017-07-11] MEDS: Pantoprazole 40 MG VIAL IVP SCH ×2 (05:29→17:24)
[2017-07-11] MEDS ORDERED: Furosemide 40 MG/4 ML VIAL IVP SCH (08:00)
[2017-07-11] MEDS: Insulin LISPRO 300 UNITS/3 ML VIAL SQ SCH ×4 (08:35→22:23)
[2017-07-11] MEDS: MethylPREDNISolone 40 MG/ML VIAL IVP SCH (08:36)
[2017-07-11] MEDS: Isosorbide MONOnitrate (24 HR) 60 MG TAB.ER.24H PO SCH (08:37)
[2017-07-11 10:39] LABS: Hematocrit 28.9 % (35.3-44.9); Hemoglobin 9.2 g/dL (11.5-15.4)
--- NOTE | 2017-07-11 11:45 | Internal Med Progress Note ---
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, 1500 mL fluid restriction Qualifiers: Heart failure type: diastolic Qualified Code(s): I50.33 - Acute on chronic diastolic (congestive) heart failure (2) Acute exacerbation of chronic obstructive airways disease Current Visit: No Status: Acute Assessment and plan: Acute exacerbation of COPD Increased sputum production, yellow discoloration, recent hospitalization with pneumonia/COPD Initiate levofloxacin and 40 mg by mouth prednisone Duo nebs every 6hr (3) Elevated troponin Current Visit: Yes Status: Acute Assessment and plan: Elevated troponin, adynamic Likely secondary to demand ischemia from acute decompensated CHF We will continue to monitor (4) Dyspnea Current Visit: Yes Status: Acute Assessment and plan: Dyspnea secondary to pleural effusion secondary to CHF and acute COPD exacerbation Aggressive diuresis with IV Lasix at this time Fluid restriction Duonebs scheduled Qualifiers: Dyspnea type: unspecified Qualified Code(s): R06.00 - Dyspnea, unspecified (5) Melena Current Visit: Yes Status: Acute Assessment and plan: Melena, secondary to chronic colonic AVM Hemoglobin stable, No report of melena/diarrhea today Continue to watch, consider GI consult (6) CKD (chronic kidney disease) stage 4, GFR 15-29 ml/min Current Visit: Yes Status: Acute Assessment and plan: Serum creatinine 2.12, BUN 29, GFR 23 Urine output is low despite IV Lasix use We will continue to diurese (7) DVT prophylaxis Current Visit: Yes Status: Acute Assessment and plan: SQ Lovenox - Subjective Interval history: The patient is resting comfortably in bed at time of examination. She says that she is not having any problem with chest pains, however she is having shortness of breath occurring. She admits that she is having productive cough with discolored sputum possibly more so than she was having previously at home. She is in mild distress, and is unable to sit up to cooperate with exam without episodic coughing. - Constitutional Vitals: Temp Pulse Resp BP Pulse Ox 97.9 F 86 19 168/81 100 07/11/17 05:12 07/11/17 08:00 07/11/17 10:44 07/11/17 08:00 07/11/17 10:44 General appearance: Present: mild distress, A&O X 3, pleasant Exam: The patient appears weak and tearful - Head Head exam: Present: atraumatic, normocephalic - Eye Eye exam: Present: PERRL, conjuntiva pink, sclera anicteric Pupils: Present: PERRL - Neck Neck exam general surgery: Present: supple, trachea midline. Absent: lymphadenopathy - Respiratory Respiratory exam: Present: rales (Diffuse crackles, increased bibasilarly), rhonchi, wheezes. Absent: accessory muscle use Additional comments: Lung sounds are generally coarse, challenging to interpret due to cough - Cardiovascular Cardiovascular exam: Present: RRR, +S1, +S2. Absent: diastolic murmur, gallop, irregular rhythm, rubs, systolic murmur - GI/Abdominal GI/Abdominal exam: Present: normal bowel sounds, soft, no peritoneal signs. Absent: distended, tenderness - Extremities Exam Extremities exam: Present: warm, radial pulses palpable and symmetrical. Absent : calf tenderness, cyanotic, pedal edema - Neurological Exam Neurological exam: Present: CN II-XII intact, oriented X3, no focal deficits. Absent: pronater drift, facial droop, speech deficit - Skin Skin exam: Present: dry, intact Internal Medicine: Result - Labs CBC & Chem 7: 07/11/17 10:29 07/11/17 04:42 Labs: Short CBC 07/10/17 07/11/17 07/11/17 Range/Units 22:57 04:42 10:29 WBC 10.7 (4.3-11.1) K/mcL Hgb 9.1 L 9.7 L 9.2 L (11.5-15.4) g/dL Hct 29.1 L 30.0 L 28.9 L (35.3-44.9) % Plt Count 322 (140-400) K/mcL Neutrophils # 9.9 H (1.6-8.9) K/mcL BMP 07/11/17 04:42 Sodium 141 Potassium 4.0 Chloride 111 H Carbon Dioxide 20 BUN 29 H Creatinine 2.12 H Glucose 225 H Calcium 9.2 Cardiac Enzymes 07/11/17 07/11/17 Range/Units 01:07 06:16 Troponin I 0.21 H* 0.14 H* (0-0.03) ng/mL - VTE Documentation of Mechanical Device: Intermittent pneumatic compression device Consult Discharge Plan - Plan Referrals: Mickey Samano MD [Primary Care Provider] - <Terrence Hicks - Last Filed: 07/11/17 22:27> Date of Encounter: 07/11/17 - Assessment and plan (1) Acute respiratory failure with hypoxia Current Visit: No Status: Acute (2) Acute exacerbation of CHF (congestive heart failure) Current Visit: Yes Status: Acute Qualifiers: Congestive heart failure type: diastolic Qualified Code(s): I50.33 - Acute on chronic diastolic (congestive) heart failure (3) CKD (chronic kidney disease) stage 4, GFR 15-29 ml/min Current Visit: Yes Status: Acute (4) Melena Current Visit: Yes Status: Acute (5) Colon arteriovenous malformation Current Visit: No Status: Chronic - Constitutional Vitals: Temp Pulse Resp BP Pulse Ox 98.3 F 93 21 142/81 97 07/11/17 19:13 07/11/17 19:13 07/11/17 19:13 07/11/17 19:13 07/11/17 19:35 Internal Medicine: Result - Labs CBC & Chem 7: 07/11/17 16:07 07/11/17 04:42 Labs: Short CBC 07/10/17 07/11/17 07/11/17 Range/Units 22:57 04:42 10:29 WBC 10.7 (4.3-11.1) K/mcL Hgb 9.1 L 9.7 L 9.2 L (11.5-15.4) g/dL Hct 29.1 L 30.0 L 28.9 L (35.3-44.9) % Plt Count 322 (140-400) K/mcL Neutrophils # 9.9 H (1.6-8.9) K/mcL 07/11/17 Range/Units 16:07 WBC (4.3-11.1) K/mcL Hgb 8.9 L (11.5-15.4) g/dL Hct 28.0 L (35.3-44.9) % Plt Count (140-400) K/mcL Neutrophils # (1.6-8.9) K/mcL BMP 07/11/17 04:42 Sodium 141 Potassium 4.0 Chloride 111 H Carbon Dioxide 20 BUN 29 H Creatinine 2.12 H Glucose 225 H Calcium 9.2 Cardiac Enzymes 07/11/17 07/11/17 Range/Units 01:07 06:16 Troponin I 0.21 H* 0.14 H* (0-0.03) ng/mL - Attending Attestation I examined this patient and my medical decision-making was reviewed with the Resident Physician on 07/11/17. I agree with the documented findings, disposition and treatment plan as described except to the extent set forth below. Ms Nur is currently admitted due to acute exac CHF. She remains moderate to high risk due to potential for worsening resp and cardiac status. Ms Nur is still very dyspneic. No CP now. No fever or chills. Feels weak overall Exam Alert. Mild resp distress. Mucus membranes dry Heart reg Some rales bilaterally Abd soft No edema I/P 1. Acute exac CHF 2. Ischemic cardiomyopathy Further diagnoses and plan as above.
[2017-07-11] MEDS: Levofloxacin 750 MG/150 ML 750 MG/150 ML BAG IVPB SCH (12:41)
--- NOTE | 2017-07-11 14:07 | Cardiology Consult Note ---
Date of Encounter: 07/11/17 Time of Encounter: 13:58 Assessment and Plan (1) Elevated troponin Current Visit: Yes Status: Acute Troponin elevation up to 0.21. EKG shows SR with no acute ST changes. Denies chest pain currently. Admits to occasional intermittent atypical chest discomfort that is unchanged from baseline. Chest pain likely demand ischemia in the setting of DCHF, COPD exacerbation, hypertensive urgency, and A/CKD. TTE 04/25/17 showed F 50-55% with WMA. Moderate diastolic dysfunction. Mild TR. Known obstructive CAD. Not a good candidate for intervention due to recurrent GI bleed. Seen to have AVM in colon in the past. Continue statin and bb. Not on asa d/t GI bleed. Consider repeat eval with GI. Patient agrees with plan. (2) Congestive heart failure Current Visit: No Status: Acute Acute on chronic diastolic CHF. EF 50-55%. Moderate diastolic dysfunction on last TTE. CXR showed pulmonary edema and bilateral pleural effusion. Continue IV lasix. Strict I&O and daily weights. Low sodium diet. Qualifiers: Congestive heart failure type: diastolic Congestive heart failure chronicity: acute on chronic Qualified Code(s): I50.33 - Acute on chronic diastolic (congestive) heart failure (3) CAD (coronary artery disease) Current Visit: No Status: Chronic H/o previous PCI. Known obstructive CAD. [facility] completed 09/14/15- EF 45%, 80% stenosis in the pLCX artery and 70% in the first OM. pRCA and d RCA with occluded stents. 100% proximal RCA stenosis with collaterals. Medical management recommended due to anemia and GI bleed at that time. She was seen 05/2016 with recurrent chest pain. She unfortunately continued to have GI bleed so continued medical management recommended. Continue statin and bb. Ideally she should be on asa. Consider starting if she is stable from GI bleeding standpoint. Continue imdur. Qualifiers: Coronary Disease-Associated Artery/Lesion type: [place] artery [place] vs. transplanted heart: [place] heart Associated angina: without angina Qualified Code(s): I25.10 - Atherosclerotic heart disease of [place] coronary artery without angina pectoris Discussion w patient/family: The assessment and plan as outlined above was discussed with the patient and/or family members who expressed understanding and agreement. All questions were answered. Thank you for involving us in the care of your patient. Please call with any questions. History of Present Illness Consult date: 07/11/17 Requesting physician: Dora Hart Consult reason: Elevated troponin Chief complaint: diarrhea and SOB for one week. History of present illness: Ms. Nur is a 71 year old female with a past medical history of CAD s/p previous PCI, diastolic CHF, HTN, DM type II, GI bleed, COPD, CKD, and chronic anemia who presented with the c/o increasing SOB and diarrhea for one week. She reports having melena. Cardiology consulted for elevated troponin up to 0.21. Initial work-up included positive stool guiac. her blood pressure was elevated up to 200/100. CXR showed cardiomegaly with pulmonary edema, bilateral pleural effusions associated with atelectasis. CT abdomen showed no acute abdomen finding. There was finding suggestive of CHF. Hgb was stable. She c/o increasing SOB, admits to orthopnea and mild BLE edema. Also c/o cough. Denies chest pain. Reports chronic pain "vibration like" in her chest when she is stressed that is unchanged. Past Med Surg Social Fam HX - Past Medical History Medical history: cardiomyopathy, COPD, coronary artery disease, diabetes, GERD, GI bleed, hyperlipidemia, hypertension, myocardial infarction, peripheral artery disease, renal disease Psychiatric history: depression - Past Surgical History Surgical History: angioplasty/stent, appendectomy, hysterectomy, orthopedic, other - Social History Smoking Status: Current every day smoker Smokeless Tobacco Status: No Alcohol use: none Drug use: none - Family History Father Adopted: No Family Member Ethnicity: Non- Living Status: Cause of : cancer Hx Family Cardiac Disorders: Yes (heart disease and heart attack) Hx Family Respiratory Disorders: Yes Hx Family Cancer: Yes (Lung cancer) Hx Family GI Disorders: No Hx Family Endocrine Disorder: Yes Hx Family Neuromuscular Disorders: No Hx Family Neurologic Disorders: No Hx Family HEENT Disorders: No Hx Family Autoimmune Disorders: No Mother Adopted: No Family Member Ethnicity: Non- Living Status: Age at : 84 Cause of : fell broke hip, coma Hx Family Cardiac Disorders: Yes Hx Family Respiratory Disorders: Yes Hx Family Cancer: No Hx Family GI Disorders: Yes Hx Family Endocrine Disorder: Yes (Diabetes) Hx Family Neuromuscular Disorders: No Hx Family Neurologic Disorders: No Hx Family HEENT Disorders: No Hx Family Autoimmune Disorders: No Medications and Allergies Albuterol Sulfate [Albuterol Inhaler] 2 puff IH Q4HR PRN 06/15/15 [History] Nitroglycerin [Nitrostat] 0.4 mg SL Q5M PRN 06/15/15 [History] Oxycodone HCl [Oxaydo] 7.5 mg PO Q6H PRN 04/25/17 [History] Bumetanide [Bumex] 0.5 mg PO DAILY #15 tablet 06/26/17 [Rx] Isosorbide MONOnitrate (24 HR) [Imdur] 60 mg PO DAILY #30 tab.er.24h 06/26/17 [ Rx] Potassium Chloride 10 meq PO DAILY #30 tab.er.prt 06/26/17 [Rx] Albuterol Neb [Proventil Neb] 2.5 mg IH Q6H PRN 07/10/17 [History] 3 Allergy/AdvReac Type Severity Reaction Status Date / Time Erythromycin Base Allergy Vomiting Verified 07/10/17 18:15 Penicillins [PCN] Allergy Rash Verified 07/10/17 18:15 codeine AdvReac Nausea Verified 07/10/17 18:15 indapamide [From Lozol] AdvReac See Verified 07/10/17 18:15 Comments All Systems Review: A 10-system review of systems was performed and is negative for pertinent findings except as documented above in the HPI. Physical Examination Vital Signs, Last 4 Hours Resp Pulse Ox 07/11/17 10:44 19 100 General: Conversant, No Apparent Distress HEENT: Atraumatic, Normocephaly, Mucus Membranes Moist Neck: No JVD, Normal carotid pulses Cardiac: Reg Rate and Rhythm, Normal S1 and S2, No Murmur Lungs: Normal Breath Sounds, No Wheeze, Rales, Rhonchi Neuro: Alert and responsive, No focal deficits noted Abdomen: Soft, Non-Tender Skin: No rashes noted on visualized skin Musculoskeletal: No Chest Wall Tenderness Extremities: No Clubbing, No Cyanosis, Normal Pulses, Other (Trace BLE edema) Results 07/11/17 10:29 07/11/17 04:42 Lab Results 07/10/17 07/11/17 07/11/17 22:57 01:07 04:42 WBC 10.7 Hgb 9.1 L 9.7 L Hct 29.1 L 30.0 L Plt Count 322 Sodium Potassium Chloride Carbon Dioxide BUN Creatinine Glucose Calcium Troponin I 0.21 H* 07/11/17 07/11/17 07/11/17 04:42 06:16 10:29 WBC Hgb 9.2 L Hct 28.9 L Plt Count Sodium 141 Potassium 4.0 Chloride 111 H Carbon Dioxide 20 BUN 29 H Creatinine 2.12 H Glucose 225 H Calcium 9.2 Troponin I 0.14 H* - Imaging and Cardiology Echo: report reviewed Cardiac cath: report reviewed Consult Discharge Plan - Plan Referrals: Mickey Samano MD [Primary Care Provider] -
[2017-07-11 16:49] LABS: Hemoglobin 8.9 g/dL (11.5-15.4)
[2017-07-11] MEDS: Furosemide 40 MG/4 ML VIAL IVP SCH (17:24)
[2017-07-11] MEDS: *HR* OxyCODONE Immed Rel 5 MG TABLET PO PRN (19:41)
[2017-07-11] MEDS ORDERED: Insulin LISPRO 300 UNITS/3 ML VIAL SQ SCH (21:00)
--- NOTE | 2017-07-11 23:26 | Event Note ---
Date of Encounter: 07/10/17 Time of Encounter: 23:30 I have personally performed a face to face evaluation on this patient and I discussed the assessment and plan with the nurse practitioner. I have reviewed and agree with the documented care plan. History and Exam by me shows: Ms. Nur is a 71 year old female with COPD, CAD s/p stent placement, CHF, type 2 DM, CKD, GI bleed, ischemic cardiomyopathy, hypertension, hyperlipidemia presented to the ED today with complaints of shortness of breath. She reports worsening shortness of breath over the last 4-5 days, worse when lying flat. She reports a non-productive cough, occasional lightheadedness, chest heaviness on and off. She reports poor appetite, but denies nausea, vomiting, abdominal pain. She reports having some diarrhea 3 or 4 days ago, she then took some immodium and has had black stools each morning since. Evaluation in the ED included CT of the abdomen and pelvis which showed no acute abdominal abnormality, but did show moderate layering bilateral pleural effusions with septal thickening suggesting acute CHF. CXR showed cardiomegaly with pulmonary edema and bilateral effusions. BNP was elevated to 3236. Troponin was also elevated to 0.19. She has LOUANN on CKD with creatinine of 2.29, up from previous of 1.9. She is anemic with Hgb of 9.2, but that is consistent with previous values. Pt is alert, awake and O x3 CHest: Diminished BS b/l, moderate wheezing b/l, crackles /r ales + Heart: S1S+ RRR No murmurs a/p 1. Acute Diastolic CHF exacerbation Cont aggressive IV diuresis Resumed other home meds 2. Acute COPD exacerbation and Pneumonia 3. Chronic tobacco dependence Will place her on Steroids + Duoneb and Empirical abx 4. Elevated troponin Mostly due to CHF exacerbation / demand ischemia [facility]
[2017-07-12] MEDS: Furosemide 40 MG/4 ML VIAL IVP SCH (00:04)
[2017-07-12] MEDS: Ipratropium/Albuterol Neb 3 ML IH SCH ×4 (04:36→21:41)
[2017-07-12 04:39] LABS: Basophils # 0.1 K/mcL (0.0-0.2); Basophils % 0.3 %; Eosinophils % 0.3 %; Hematocrit 27.1 % (35.3-44.9); Hemoglobin 8.5 g/dL (11.5-15.4); Immature Granulocytes % 0.3 % (0-4); Lymphocytes % 13.1 %; Mean Corpuscular HGB Conc 31.4 g/dL (31.6-35.5); Mean Corpuscular Hemoglobin 26.2 pg (28.0-33.3); Mean Corpuscular Volume 83.4 fL (83.0-100.0); Mean Platelet Volume 10.5 fL (9.4-12.4); Monocytes % 6.5 %; Neutrophils # 11.9 K/mcL (1.6-8.9); Platelet Count 341 K/mcL (140-400); Red Blood Count 3.25 M/mcL (3.82-4.97); Red Cell Distribution Width 15.2 % (11.5-14.5); Segmented Neutrophils % 79.5 %
[2017-07-12 04:59] LABS: Calcium 8.9 mg/dL (8.6-10.8)
[2017-07-12] MEDS: Pantoprazole 40 MG VIAL IVP SCH (05:17)
[2017-07-12] MEDS: Insulin LISPRO 300 UNITS/3 ML VIAL SQ SCH ×5 (05:57→21:16)
--- NOTE | 2017-07-12 08:30 | Electrocardiograph Report ---
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
--- NOTE | 2017-07-12 09:43 | Internal Med Progress Note ---
<Driss Santos - Last Filed: 07/12/17 14:30> Date of Encounter: 07/12/17 Time of Encounter: 06:45 - Assessment and plan (1) Heart failure, chronic, with acute decompensation Current Visit: Yes Status: Acute Assessment and plan: Congestive heart failure with preserved ejection fraction, acute decompensation , improved BNP elevated to 3236, last echo in April showed LVEF 50-55% moderate diastolic dysfunction Negative fluid balance of 1200, BUN increased to 51. Decrease Lasix to twice a day Crackles notable diffusely throughout lungs worse in the bibasilar regions Cardiology was on board but signed off Repeat BMP this afternoon to monitor kidney function Qualifiers: Heart failure type: diastolic Qualified Code(s): I50.33 - Acute on chronic diastolic (congestive) heart failure (2) Acute exacerbation of chronic obstructive airways disease Current Visit: No Status: Acute Assessment and plan: Acute exacerbation of COPD Increased sputum production, yellow discoloration, recent hospitalization with pneumonia/COPD Levaquin Day 1 Prednisone Day 2 Duo nebs every 6hr (3) Elevated troponin Current Visit: Yes Status: Acute Assessment and plan: Elevated troponin, adynamic Likely secondary to demand ischemia from acute decompensated CHF (4) Dyspnea Current Visit: Yes Status: Acute Assessment and plan: Dyspnea secondary to pleural effusion secondary to CHF and acute COPD exacerbation Aggressive diuresis with IV Lasix at this time, reduce to twice a day from 3 times a day Fluid restriction Duonebs scheduled Qualifiers: Dyspnea type: unspecified Qualified Code(s): R06.00 - Dyspnea, unspecified (5) Melena Current Visit: Yes Status: Acute Assessment and plan: Melena, secondary to chronic colonic AVM Hemoglobin stable, No report of melena/diarrhea today Continue to watch, consider GI consult (6) CKD (chronic kidney disease) stage 4, GFR 15-29 ml/min Current Visit: Yes Status: Acute Assessment and plan: Serum creatinine 2.33, BUN 51, GFR 25 Mild decrease in renal function Urine output on Lasix 3 times a day increased, will decrease back to twice a day Repeat BMP and afternoon (7) DVT prophylaxis Current Visit: Yes Status: Acute Assessment and plan: SQ Lovenox - Subjective Interval history: The patient is resting comfortably in bed at time of examination. She reports that she is feeling much better, and her cough has decreased. She said that her cough is also producing less sputum and is becoming more dry. She has not had any chest pain overnight and feels like it is much more easy to breathe. She was able to sleep soundly at night without supplemental oxygen. - Constitutional Vitals: Temp Pulse Resp BP Pulse Ox 98.0 F 89 15 147/73 95 07/12/17 07:29 07/12/17 07:29 07/12/17 07:29 07/12/17 07:29 07/12/17 07:29 General appearance: Present: A&O X 3, pleasant, no acute distress, underweight Exam: - Head Head exam: Present: atraumatic, normocephalic - Eye Eye exam: Present: PERRL, conjuntiva pink, sclera anicteric Pupils: Present: PERRL - Neck Neck exam general surgery: Present: supple, trachea midline. Absent: lymphadenopathy - Respiratory Respiratory exam: Present: rales (Diffuse crackles, increased bibasilarly), rhonchi, wheezes. Absent: accessory muscle use Additional comments: Lung sounds are generally coarse, challenging to interpret due to cough - Cardiovascular Cardiovascular exam: Present: RRR, +S1, +S2. Absent: diastolic murmur, gallop, irregular rhythm, rubs, systolic murmur - GI/Abdominal GI/Abdominal exam: Present: normal bowel sounds, soft, no peritoneal signs. Absent: distended, tenderness - Extremities Exam Extremities exam: Present: warm, radial pulses palpable and symmetrical. Absent : calf tenderness, cyanotic, pedal edema - Neurological Exam Neurological exam: Present: CN II-XII intact, oriented X3, no focal deficits. Absent: pronater drift, facial droop, speech deficit - Skin Skin exam: Present: dry, intact Internal Medicine: Result - Labs CBC & Chem 7: 07/12/17 04:26 07/12/17 04:26 Labs: Short CBC 07/11/17 07/11/17 07/12/17 Range/Units 10:29 16:07 04:26 WBC 15.0 H (4.3-11.1) K/mcL Hgb 9.2 L 8.9 L 8.5 L (11.5-15.4) g/dL Hct 28.9 L 28.0 L 27.1 L (35.3-44.9) % Plt Count 341 (140-400) K/mcL Neutrophils # 11.9 H (1.6-8.9) K/mcL BMP 07/12/17 04:26 Sodium 138 Potassium 4.0 Chloride 106 Carbon Dioxide 23 BUN 51 H D Creatinine 2.33 H Glucose 154 H Calcium 8.9 - VTE Documentation of Mechanical Device: Intermittent pneumatic compression device Consult Discharge Plan - Plan Referrals: Mickey Samano MD [Primary Care Provider] - <Terrence Hicks - Last Filed: 07/12/17 19:01> Date of Encounter: 07/12/17 - Assessment and plan (1) Acute respiratory failure with hypoxia Current Visit: No Status: Acute (2) Acute exacerbation of CHF (congestive heart failure) Current Visit: Yes Status: Acute Qualifiers: Congestive heart failure type: diastolic Qualified Code(s): I50.33 - Acute on chronic diastolic (congestive) heart failure (3) CKD (chronic kidney disease) stage 4, GFR 15-29 ml/min Current Visit: Yes Status: Acute (4) Melena Current Visit: Yes Status: Acute (5) Colon arteriovenous malformation Current Visit: No Status: Chronic - Constitutional Vitals: Temp Pulse Resp BP Pulse Ox 98.4 F 85 16 112/64 99 07/12/17 15:53 07/12/17 15:53 07/12/17 16:00 07/12/17 15:53 07/12/17 16:00 Internal Medicine: Result - Labs CBC & Chem 7: 07/12/17 04:26 07/12/17 13:31 Labs: Short CBC 07/12/17 Range/Units 04:26 WBC 15.0 H (4.3-11.1) K/mcL Hgb 8.5 L (11.5-15.4) g/dL Hct 27.1 L (35.3-44.9) % Plt Count 341 (140-400) K/mcL Neutrophils # 11.9 H (1.6-8.9) K/mcL BMP 07/12/17 07/12/17 04:26 13:31 Sodium 138 140 Potassium 4.0 3.8 Chloride 106 107 Carbon Dioxide 23 22 BUN 51 H D 50 H Creatinine 2.33 H 2.68 H Glucose 154 H 143 H Calcium 8.9 9.0 - Attending Attestation I examined this patient and my medical decision-making was reviewed with the Resident Physician on 07/12/17. I agree with the documented findings, disposition and treatment plan as described except to the extent set forth below. Ms Nur is currently admitted for acute exac CHF. She is doing somewhat better today. She remains moderate to high risk. She continues with IV Lasix and we are watching her renal function. Ms Nur is feeling OK. No fever or chills. No CP now. No GI issues. Exam Alert. Comfortable Mucus membranes dry Heart reg Few bibasilar rales No edema I/P 1. CHF 2. CKD 4 Further diagnoses and plan as above.
[2017-07-12] MEDS: Nicotine 14 MG PATCH.TD24 TD SCH ×2 (12:07→12:17)
[2017-07-12] MEDS: hydrALAZINE 25 MG TABLET PO SCH ×3 (12:09→21:16)
[2017-07-12] MEDS: *HR* Enoxaparin 30 MG/0.3 ML SYRINGE SQ SCH (12:10)
[2017-07-12] MEDS: predniSONE 20 MG TABLET PO SCH (12:10)
[2017-07-12] MEDS: amLODIPine 5 MG TABLET PO SCH (12:10)
[2017-07-12] MEDS: Isosorbide MONOnitrate (24 HR) 60 MG TAB.ER.24H PO SCH (12:16)
--- NOTE | 2017-07-12 12:45 | Cardiology Progress Note ---
Date of Encounter: 07/12/17 Time of Encounter: 10:15 Assessment and Plan (1) Elevated troponin Current Visit: Yes Status: Acute Troponin elevation up to 0.21. EKG shows SR with no acute ST changes. Denies chest pain currently. Admits to occasional intermittent atypical chest discomfort that is unchanged from baseline. Chest pain likely demand ischemia in the setting of DCHF, COPD exacerbation, hypertensive urgency, and A/CKD. TTE 04/25/17 showed F 50-55% with WMA. Moderate diastolic dysfunction. Mild TR. Known obstructive CAD. Not a good candidate for intervention due to recurrent GI bleed. Seen to have AVM in colon in the past. Continue statin and bb. Not on asa d/t GI bleed. Consider repeat eval with GI. Patient agrees with plan. No further cardiac testing. Call with questions. Cardiology signing off. (2) Congestive heart failure Current Visit: No Status: Acute Acute on chronic diastolic CHF. EF 50-55%. Moderate diastolic dysfunction on last TTE. CXR showed pulmonary edema and bilateral pleural effusion. On IV lasix. Convert to oral bumex home dose tomorrow. Appears euvolemic on exam. Net negative 1600 ml. Patient also c/o one week of diarrhea prior to admit. Creatinine elevating. Concern patient may now be dry. Monitor BMP . Strict I&O and daily weights. Low sodium diet. Qualifiers: Congestive heart failure type: diastolic Congestive heart failure chronicity: acute on chronic Qualified Code(s): I50.33 - Acute on chronic diastolic (congestive) heart failure (3) CAD (coronary artery disease) Current Visit: No Status: Chronic H/o previous PCI. Known obstructive CAD. [facility] completed 09/14/15- EF 45%, 80% stenosis in the pLCX artery and 70% in the first OM. pRCA and d RCA with occluded stents. 100% proximal RCA stenosis with collaterals. Medical management recommended due to anemia and GI bleed at that time. She was seen 05/2016 with recurrent chest pain. She unfortunately continued to have GI bleed so continued medical management recommended. Continue statin and bb. Ideally she should be on asa. Consider starting if she is stable from GI bleeding standpoint. Continue imdur. Qualifiers: Coronary Disease-Associated Artery/Lesion type: [place] artery [place] vs. transplanted heart: [place] heart Associated angina: without angina Qualified Code(s): I25.10 - Atherosclerotic heart disease of [place] coronary artery without angina pectoris Discussion w patient/family: The assessment and plan as outlined above was discussed with the patient and/or family members who expressed understanding and agreement. All questions were answered. Thank you for involving us in the care of your patient. Please call with any questions. Subjective Principal diagnosis: Elevated troponin, hypertensive urgency, melena Interval history: Ms. Nur denies events overnight. Denies chest pain. Objective Vital Signs, Last 4 Hours Temp Pulse Resp BP Pulse Ox 07/12/17 12:00 98.2 F 90 20 155/94 97 07/12/17 10:12 16 97 General: Conversant, No Apparent Distress HEENT: Atraumatic, Normocephaly, Mucus Membranes Moist Neck: No JVD, Normal carotid pulses Cardiac: Reg Rate and Rhythm, Normal S1 and S2, No Murmur Lungs: Normal Breath Sounds, No Wheeze, Rales, Rhonchi Neuro: Alert and responsive, No focal deficits noted Abdomen: Soft, Non-Tender Skin: No rashes noted on visualized skin Musculoskeletal: No Chest Wall Tenderness Extremities: No Clubbing, No Cyanosis, No Edema, Normal Pulses Results 07/12/17 04:26 07/12/17 04:26 Lab Results 07/11/17 07/12/17 07/12/17 16:07 04:26 04:26 WBC 15.0 H Hgb 8.9 L 8.5 L Hct 28.0 L 27.1 L Plt Count 341 Sodium 138 Potassium 4.0 Chloride 106 Carbon Dioxide 23 BUN 51 H D Creatinine 2.33 H Glucose 154 H Calcium 8.9 - Imaging and Cardiology Echo: report reviewed - VTE Documentation of Mechanical Device: Intermittent pneumatic compression device Consult Discharge Plan - Plan Referrals: Mickey Samano MD [Primary Care Provider] -
[2017-07-12 15:37] LABS: Potassium 3.8 mEq/L (3.5-4.5)
[2017-07-12] MEDS ORDERED: Furosemide 40 MG/4 ML VIAL IVP SCH (17:00)
[2017-07-13] MEDS: Insulin LISPRO 300 UNITS/3 ML VIAL SQ SCH ×5 (01:00→21:11)
[2017-07-13] MEDS: Ipratropium/Albuterol Neb 3 ML IH SCH ×4 (04:25→21:58)
[2017-07-13 05:29] LABS: Basophils % 0.2 %; Eosinophils % 0.1 %; Hematocrit 26.5 % (35.3-44.9); Hemoglobin 8.4 g/dL (11.5-15.4); Immature Granulocytes % 0.4 % (0-4); Immature Platelets 2.6 % (1.1-6.1); Lymphocytes # 1.5 K/mcL (0.6-4.6); Lymphocytes % 13.5 %; Mean Corpuscular HGB Conc 31.7 g/dL (31.6-35.5); Mean Corpuscular Hemoglobin 26.1 pg (28.0-33.3); Mean Corpuscular Volume 82.3 fL (83.0-100.0); Mean Platelet Volume 10.2 fL (9.4-12.4); Monocytes # 0.7 K/mcL (0.0-1.3); Monocytes % 6.2 %; Neutrophils # 8.7 K/mcL (1.6-8.9); Platelet Count 375 K/mcL (140-400); Red Blood Count 3.22 M/mcL (3.82-4.97); Red Cell Distribution Width 15.4 % (11.5-14.5); Segmented Neutrophils % 79.6 %
[2017-07-13 05:51] LABS: Calcium 8.8 mg/dL (8.6-10.8); Potassium 4.2 mEq/L (3.5-4.5)
[2017-07-13] MEDS ORDERED: 0.9 % Sodium Chloride 1,000 ML IVC SCH (07:30)
--- NOTE | 2017-07-13 08:42 | Internal Med Progress Note ---
<Driss Santos - Last Filed: 07/13/17 08:51> Date of Encounter: 07/13/17 Time of Encounter: 08:38 - Assessment and plan (1) Heart failure, chronic, with acute decompensation Current Visit: Yes Status: Acute Assessment and plan: Congestive heart failure with preserved ejection fraction, acute decompensation , improved BNP elevated to 3236, last echo in April showed LVEF 50-55% moderate diastolic dysfunction Negative fluid balance of 140 mL Crackles in lungs has largely resolved with the exception of the left lower base Due to LOUANN, we will be giving the patient some IV fluids and monitoring The patient may not be able to be fully diuresed due to current kidney function Qualifiers: Heart failure type: diastolic Qualified Code(s): I50.33 - Acute on chronic diastolic (congestive) heart failure (2) Acute exacerbation of chronic obstructive airways disease Current Visit: No Status: Acute Assessment and plan: Acute exacerbation of COPD, improved Increased sputum production, yellow discoloration, recent hospitalization with pneumonia/COPD Levaquin Day 2 Prednisone Day 3 Duo nebs every 6hr (3) Elevated troponin Current Visit: Yes Status: Acute Assessment and plan: Elevated troponin, adynamic Likely secondary to demand ischemia from acute decompensated CHF (4) Dyspnea Current Visit: Yes Status: Acute Assessment and plan: Dyspnea, pleural effusion secondary to CHF and acute COPD exacerbation Fluid restriction, discontinued Lasix due to LOUANN Duonebs scheduled Qualifiers: Dyspnea type: unspecified Qualified Code(s): R06.00 - Dyspnea, unspecified (5) Melena Current Visit: Yes Status: Acute Assessment and plan: Melena, secondary to chronic colonic AVM Hemoglobin stable, No report of melena/diarrhea today Continue to watch, consider GI consult if needed (6) Acute kidney injury superimposed on chronic kidney disease Current Visit: Yes Status: Acute Assessment and plan: Serum creatinine 186, BUN 59, GFR 16 Patient has chronic kidney disease stage IV, worsening due to LOUANN She has been on IV Lasix, fluid restriction because of acute exacerbation of congestive heart failure With the exception of bilateral pleural effusions on imaging, the patient appears euvolemic Discontinue diuresis, begin gentle IV fluid hydration (7) CKD (chronic kidney disease) stage 4, GFR 15-29 ml/min Current Visit: Yes Status: Chronic Assessment and plan: See above (8) DVT prophylaxis Current Visit: Yes Status: Acute Assessment and plan: SQ Lovenox - Subjective Interval history: Assessment comfortably in bed at time of examination, she reports she did not sleep overnight but she has no acute complaints of this morning. - Constitutional Vitals: Temp Pulse Resp BP Pulse Ox 98.1 F 89 18 173/77 96 07/13/17 07:00 07/13/17 07:00 07/13/17 07:00 07/13/17 07:00 07/13/17 07:00 General appearance: Present: A&O X 3, pleasant, no acute distress, underweight Exam: - Head Head exam: Present: atraumatic, normocephalic - Eye Eye exam: Present: PERRL, conjuntiva pink, sclera anicteric Pupils: Present: PERRL - Neck Neck exam general surgery: Present: supple, trachea midline. Absent: lymphadenopathy - Respiratory Respiratory exam: Present: rales (Diffuse crackles, increased bibasilarly), rhonchi, wheezes. Absent: accessory muscle use Additional comments: Lung sounds improved from prior exam. Crackles dissipated, more prominent left lung base - Cardiovascular Cardiovascular exam: Present: RRR, +S1, +S2. Absent: diastolic murmur, gallop, irregular rhythm, rubs, systolic murmur - GI/Abdominal GI/Abdominal exam: Present: normal bowel sounds, soft, no peritoneal signs. Absent: distended, tenderness - Extremities Exam Extremities exam: Present: warm, radial pulses palpable and symmetrical. Absent : calf tenderness, cyanotic, pedal edema - Neurological Exam Neurological exam: Present: CN II-XII intact, oriented X3, no focal deficits. Absent: pronater drift, facial droop, speech deficit - Skin Skin exam: Present: dry, intact Internal Medicine: Result - Labs CBC & Chem 7: 07/13/17 05:20 07/13/17 05:20 Labs: Short CBC 07/13/17 Range/Units 05:20 WBC 10.9 (4.3-11.1) K/mcL Hgb 8.4 L (11.5-15.4) g/dL Hct 26.5 L (35.3-44.9) % Plt Count 375 (140-400) K/mcL Neutrophils # 8.7 (1.6-8.9) K/mcL BMP 07/12/17 07/13/17 13:31 05:20 Sodium 140 136 Potassium 3.8 4.2 Chloride 107 105 Carbon Dioxide 22 23 BUN 50 H 59 H Creatinine 2.68 H 2.86 H Glucose 143 H 127 H Calcium 9.0 8.8 - VTE Documentation of Mechanical Device: Intermittent pneumatic compression device Consult Discharge Plan - Plan Referrals: Mickey Samano MD [Primary Care Provider] - <Terrence Hicks Nolan - Last Filed: 07/13/17 17:40> Date of Encounter: 07/13/17 - Assessment and plan (1) Acute renal failure Current Visit: Yes Status: Suspected Assessment and plan: Related to diuresis. Small amt fluid today. Qualifiers: Acute renal failure type: with acute tubular necrosis Qualified Code(s): N17.0 - Acute kidney failure with tubular necrosis (2) Acute respiratory failure with hypoxia Current Visit: No Status: Acute (3) Acute exacerbation of CHF (congestive heart failure) Current Visit: Yes Status: Acute Qualifiers: Congestive heart failure type: diastolic Qualified Code(s): I50.33 - Acute on chronic diastolic (congestive) heart failure (4) CKD (chronic kidney disease) stage 4, GFR 15-29 ml/min Current Visit: Yes Status: Chronic (5) Melena Current Visit: Yes Status: Acute (6) Colon arteriovenous malformation Current Visit: No Status: Chronic - Constitutional Vitals: Temp Pulse Resp BP Pulse Ox 98.1 F 79 18 148/61 99 07/13/17 14:47 07/13/17 14:47 07/13/17 15:58 07/13/17 14:47 07/13/17 15:58 Internal Medicine: Result - Labs CBC & Chem 7: 07/13/17 05:20 07/13/17 05:20 Labs: Short CBC 07/13/17 Range/Units 05:20 WBC 10.9 (4.3-11.1) K/mcL Hgb 8.4 L (11.5-15.4) g/dL Hct 26.5 L (35.3-44.9) % Plt Count 375 (140-400) K/mcL Neutrophils # 8.7 (1.6-8.9) K/mcL BMP 07/13/17 05:20 Sodium 136 Potassium 4.2 Chloride 105 Carbon Dioxide 23 BUN 59 H Creatinine 2.86 H Glucose 127 H Calcium 8.8 - Attending Attestation I examined this patient and my medical decision-making was reviewed with the Resident Physician on 07/13/17. I agree with the documented findings, disposition and treatment plan as described except to the extent set forth below. Ms Nur is currently admitted for acute exac CHF. She has been diuresed and her renal function is more elevated today. She remains moderate to high risk due to potential for worsening renal and resp status. Ms Nur feels OK. No CP or SOB. Did not sleep well. No fever or chills. Exam Alert Comfortable Mucus membranes dry Heart reg Lungs with scant rales bilateral bases Abd soft No edema I/P 1. CKD with LOUANN - small amt fluid today 2. CHF Further diagnoses and plan as above.
[2017-07-13] MEDS: hydrALAZINE 25 MG TABLET PO SCH ×3 (10:05→21:04)
[2017-07-13] MEDS: Isosorbide MONOnitrate (24 HR) 60 MG TAB.ER.24H PO SCH (10:05)
[2017-07-13] MEDS: amLODIPine 5 MG TABLET PO SCH (10:05)
[2017-07-13] MEDS: Nicotine 14 MG PATCH.TD24 TD SCH (10:05)
[2017-07-13] MEDS: Bumetanide 1 MG TABLET PO SCH (10:05)
[2017-07-13] MEDS: predniSONE 20 MG TABLET PO SCH (10:05)
[2017-07-13] MEDS: *HR* Enoxaparin 30 MG/0.3 ML SYRINGE SQ SCH (10:06)
[2017-07-13] MEDS: Levofloxacin 750 MG/150 ML 750 MG/150 ML BAG IVPB SCH (12:50)
[2017-07-13] MEDS: *HR* OxyCODONE Immed Rel 5 MG TABLET PO PRN (15:35)
[2017-07-14] MEDS: Ipratropium/Albuterol Neb 3 ML IH SCH ×2 (04:32→11:13)
[2017-07-14] MEDS: Insulin LISPRO 300 UNITS/3 ML VIAL SQ SCH ×2 (08:39→12:26)
[2017-07-14] MEDS: hydrALAZINE 25 MG TABLET PO SCH (08:40)
[2017-07-14] MEDS: Isosorbide MONOnitrate (24 HR) 60 MG TAB.ER.24H PO SCH (08:40)
[2017-07-14] MEDS: *HR* Enoxaparin 30 MG/0.3 ML SYRINGE SQ SCH (08:40)
[2017-07-14] MEDS: Bumetanide 1 MG TABLET PO SCH (08:40)
[2017-07-14] MEDS: amLODIPine 5 MG TABLET PO SCH (08:40)
[2017-07-14] MEDS: Nicotine 14 MG PATCH.TD24 TD SCH (08:41)
[2017-07-14] MEDS: predniSONE 20 MG TABLET PO SCH (08:41)
[2017-07-14 09:23] LABS: Calcium 9.3 mg/dL (8.6-10.8)
[2017-07-14 09:25] LABS: Potassium 4.6 mEq/L (3.5-4.5)
--- NOTE | 2017-07-14 09:58 | Discharge Summary ---
<Driss Santos - Last Filed: 07/14/17 10:34> Date of Encounter: 07/14/17 Time of Encounter: 08:00 - Discharge Diagnosis (1) Heart failure, chronic, with acute decompensation Priority: Primary Status: Acute Qualifiers: Heart failure type: diastolic Qualified Code(s): I50.33 - Acute on chronic diastolic (congestive) heart failure (2) Acute exacerbation of chronic obstructive airways disease Priority: Secondary Status: Acute (3) Elevated troponin Priority: Secondary Status: Acute (4) Dyspnea Priority: Secondary Status: Acute Qualifiers: Dyspnea type: unspecified Qualified Code(s): R06.00 - Dyspnea, unspecified (5) Melena Priority: Secondary Status: Acute (6) Acute kidney injury superimposed on chronic kidney disease Priority: Secondary Status: Acute Comments: Improved with fluid resuscitation (7) CKD (chronic kidney disease) stage 4, GFR 15-29 ml/min Priority: Secondary Status: Chronic (8) DVT prophylaxis Priority: Secondary Status: Acute - Discharge Medications Prescriptions: Glimepiride [Amaryl] 2 mg PO DAILY #1 tablet levoFLOXacin [Levaquin] 500 mg PO ONCE #1 tablet Metoprolol Tartrate [Lopressor] 50 mg PO BID #1 tablet Oxycodone HCl [Oxaydo] 7.5 mg PO Q6H PRN #7 tablet.orl PRN Reason: Pain predniSONE [PredniSONE] 40 mg PO DAILY #2 tablet Zolpidem [Ambien] 5 mg PO HS PRN #7 tablet PRN Reason: Insomnia Home Medications: Albuterol Sulfate [Albuterol Inhaler] 2 puff IH Q4HR PRN 06/15/15 [History] Nitroglycerin [Nitrostat] 0.4 mg SL Q5M PRN 06/15/15 [History] Bumetanide [Bumex] 0.5 mg PO DAILY #15 tablet 06/26/17 [Rx] Isosorbide MONOnitrate (24 HR) [Imdur] 60 mg PO DAILY #30 tab.er.24h 06/26/17 [ Rx] Potassium Chloride 10 meq PO DAILY #30 tab.er.prt 06/26/17 [Rx] Albuterol Neb [Proventil Neb] 2.5 mg IH Q6H PRN 07/10/17 [History] Atorvastatin [Lipitor] 40 mg PO HS tablet 07/14/17 [Rx] Enoxaparin [Lovenox] 30 mg SQ DAILY syringe 07/14/17 [Rx] Glimepiride [Amaryl] 2 mg PO DAILY #1 tablet 07/14/17 [Rx] Ipratropium/Albuterol Neb [Duoneb] 3 ml IH [id number] inhsol 07/14/17 [Rx] Metoprolol Tartrate [Lopressor] 50 mg PO BID #1 tablet 07/14/17 [Rx] Nicotine Patch [Nicoderm] 14 mg TD DAILY patch.td24 07/14/17 [Rx] Omeprazole [PriLOSEC] 20 mg PO DAILY@0630 capsule. 07/14/17 [Rx] Oxycodone HCl [Oxaydo] 7.5 mg PO Q6H PRN #7 tablet.orl 07/14/17 [Rx] Zolpidem [Ambien] 5 mg PO HS PRN #7 tablet 07/14/17 [Rx] amLODIPine [Norvasc] 10 mg PO DAILY tablet 07/14/17 [Rx] hydrALAZINE [HydrALAZINE] 50 mg PO TID tablet 07/14/17 [Rx] levoFLOXacin [Levaquin] 500 mg PO ONCE #1 tablet 07/14/17 [Rx] predniSONE [PredniSONE] 40 mg PO DAILY #2 tablet 07/14/17 [Rx] Allergies/Adverse Reactions: 3 Allergy/AdvReac Type Severity Reaction Status Date / Time Erythromycin Base Allergy Vomiting Verified 07/10/17 18:15 Penicillins [PCN] Allergy Rash Verified 07/10/17 18:15 codeine AdvReac Nausea Verified 07/10/17 18:15 indapamide [From Lozol] AdvReac See Verified 07/10/17 18:15 Comments Date of admission: 07/10/17 21:32 Primary care physician: Mickey Samano MD Consults: 07/10/17 21:46 Consult to Cardiology [CONS] Routine Comment: Consulting Provider: Cardiology Lita Reason for Consult: acute CHF, elevated troponin Call Completed: No 07/11/17 11:22 Consult to Public Health Physician [CONS] Routine Reason for SW Consult: Patient wants to go to rehab at [facility], [place] 07/11/17 11:23 Consult to Physical Therapy [CONS] Routine Comment: Evaluate, develop and implement POC Reason for Consult: Patient wants rehab at discharge 07/11/17 11:24 Consult to Occupational Therapy [CONS] Routine Comment: Evaluate, develop and implement POC Reason for Consult: Patient would like rehab at discharge Discharging clinician: Driss Santos Anticipated date of discharge: 07/14/17 - Patient Status Disposition: Transfer SNF Condition: Fair Functional capacity at discharge: uses cane/walker Overall status at discharge: patient is progressing back to baseline - Discharge Instructions Follow Up With: Mickey Samano MD [Primary Care Provider] - Additional Instructions: Patient's renal function is returning to normal with hydration, careful diuresis must be monitored Patient will require 2 more days of prednisone, 1 more day of Levaquin Patient will require twice a day blood pressure check Follow-up with primary care in 1-2 weeks, follow-up with outpatient cardiology, follow-up with outpatient GI - Diet and Activity Activity: increase activity as tolerated Diet: diabetic diet, low salt diet Hospital course: Ms. Nur is a 72 year old female with COPD, CAD s/p stent placement, CHF, type 2 DM, CKD, GI bleed, ischemic cardiomyopathy, hypertension, hyperlipidemia who presents to the emergency department with complaints of shortness of breath that had been occurring over a one-week period and was worse when lying flat. She also had melena for about 1 week, and she has a known AVM in her intestines. Evaluation in the ED included CT abdomen and pelvis which did demonstrate moderate layering bilateral pleural effusions with septal thickening suggesting acute CHF, which was corroborated by chest x-ray demonstrating cardiomegaly with pulmonary edema and bilateral effusions. BNP was elevated to 3236, and she also had elevated troponins which was likely secondary to CHF. Additionally, she did complain of productive cough with increased sputum and difference in color. She does admit that she was hospitalized about 10 days prior to this for pneumonia. She was subsequently admitted to the hospital for evaluation and treatment of CHF. The patient was placed on a fluid restriction of 1500 mL, with aggressive diuresis. Additionally, she started on steroids and antibiotics for presumed COPD exacerbation. She improved on this regimen, and began to appear clinically euvolemic. Cardiology saw the patient and suggested optimal medical management for CHF. The patient's kidney function decreased over the course of her stay likely due to fluid diuresis, and improved with fluid resuscitation. The patient will need continued rehabilitation, and tuning of cardiac medications by PCP and cardiology as outpatient. Additionally, the patient does have melena with occult positive stool, however her hemoglobin remained relatively stable throughout admission, and she did not experience while here, but she is not a good candidate for aspirin as result. She will likely need outpatient workup by GI. - Time Spent with Patient Total time spent providing and/or coordinating discharge services: - Constitutional Vitals: Temp Pulse Resp BP Pulse Ox 98.2 F 87 17 196/106 97 07/14/17 03:33 07/14/17 07:00 07/14/17 07:00 07/14/17 07:00 07/14/17 07:00 General appearance: Present: A&O X 3, pleasant, no acute distress, underweight - Head Head exam: Present: atraumatic, normocephalic - Eye Eye exam: Present: PERRL, conjuntiva pink, sclera anicteric Pupils: Present: PERRL - Neck Neck exam general surgery: Present: supple, trachea midline. Absent: lymphadenopathy - Respiratory Respiratory exam: Present: decreased breath sounds, rales. Absent: accessory muscle use, rhonchi, wheezes Additional comments: Fine crackles may be heard diffusely but very quietly. Significant improvement from previous exam - Cardiovascular Cardiovascular exam: Present: RRR, +S1, +S2. Absent: diastolic murmur, gallop, rubs, systolic murmur - GI/Abdominal GI/Abdominal exam: Present: normal bowel sounds, soft, no peritoneal signs. Absent: distended, tenderness - Extremities Exam Extremities exam: Present: warm, radial pulses palpable and symmetrical. Absent : calf tenderness, cyanotic, pedal edema - Neurological Exam Neurological exam: Present: CN II-XII intact, oriented X3, no focal deficits. Absent: pronater drift, facial droop, speech deficit - Skin Skin exam: Present: dry, intact - VTE Documentation of Mechanical Device: Intermittent pneumatic compression device <Terrence Hicks - Last Filed: 07/14/17 13:10> Date of Encounter: 07/14/17 - Discharge Diagnosis (1) Acute respiratory failure with hypoxia Priority: Primary Status: Acute (2) Acute renal failure Priority: Secondary Status: Resolved Qualifiers: Acute renal failure type: with acute tubular necrosis Qualified Code(s): N17.0 - Acute kidney failure with tubular necrosis (3) Acute exacerbation of CHF (congestive heart failure) Priority: Primary Status: Acute Qualifiers: Congestive heart failure type: diastolic Qualified Code(s): I50.33 - Acute on chronic diastolic (congestive) heart failure (4) CKD (chronic kidney disease) stage 4, GFR 15-29 ml/min Status: Chronic (5) Melena Status: Acute (6) Colon arteriovenous malformation Priority: Secondary Status: Chronic (7) DM (diabetes mellitus), type 2 Priority: Secondary Status: Chronic Qualifiers: Diabetes mellitus complication status: with kidney complications Diabetes mellitus complication detail: with chronic kidney disease Diabetes mellitus moth exterminator insulin use: with moth exterminator use Chronic kidney disease stage: stage 3 (moderate) Qualified Code(s): E11.22 - Type 2 diabetes mellitus with diabetic chronic kidney disease; N18.3 - Chronic kidney disease, stage 3 ( moderate); Z79.4 - roasterman (current) use of insulin (8) Anemia Priority: Secondary Status: Chronic Qualifiers: Anemia type: other cause Other causes of anemia: chronic disease, other Qualified Code(s): D63.8 - Anemia in other chronic diseases classified elsewhere (9) Hypertension Priority: Secondary Status: Chronic Qualifiers: Hypertension type: essential hypertension Qualified Code(s): I10 - Essential (primary) hypertension Date of admission: 07/10/17 21:32 Primary care physician: Mickey Samano MD Consults: 07/10/17 21:46 Consult to Cardiology [CONS] Routine Comment: Consulting Provider: Cardiology Lita Reason for Consult: acute CHF, elevated troponin Call Completed: No 07/11/17 11:22 Consult to Public Health Physician [CONS] Routine Reason for SW Consult: Patient wants to go to rehab at [facility] 07/11/17 11:23 Consult to Physical Therapy [CONS] Routine Comment: Evaluate, develop and implement POC Reason for Consult: Patient wants rehab at discharge 07/11/17 11:24 Consult to Occupational Therapy [CONS] Routine Comment: Evaluate, develop and implement POC Reason for Consult: Patient would like rehab at discharge Hospital course: Ms. Nur is a 72 year old female - Time Spent with Patient Total time spent providing and/or coordinating discharge services: 38min - Constitutional Vitals: Temp Pulse Resp BP Pulse Ox 98.2 F 87 16 140/61 97 07/14/17 03:33 07/14/17 07:00 07/14/17 11:13 07/14/17 12:24 07/14/17 11:13 - Attending Attestation I examined this patient and my medical decision-making was reviewed with the Resident Physician on 07/14/17. I agree with the documented findings, disposition and treatment plan as described except to the extent set forth below. Ms Nur has been admitted for acute exac CHF, LOUANN. She is now afebrile with stable vitals. Renal function is at baseline. She feels OK and is ready for discharge to SNF. Exam Alert. Mod distress due to pruritus Mucus membranes dry Heart not tachy Lungs with few rales Abd soft No edema Plan D/C to SNF today.
--- NOTE | 2017-07-14 10:20 | Physician Discharge Referral ---
ExtendedCare Referral Info Transfer To: [facility] Provider in Charge: Terrence Hicks Provider in Charge after Transfer: PCP Institutional Level of Care: Skilled - Diagnosis (1) Heart failure, chronic, with acute decompensation Priority: Primary Status: Acute (2) Acute exacerbation of chronic obstructive airways disease Priority: Secondary Status: Acute (3) Elevated troponin Priority: Secondary Status: Acute (4) Dyspnea Priority: Secondary Status: Acute (5) Melena Priority: Secondary Status: Acute (6) Acute kidney injury superimposed on chronic kidney disease Priority: Secondary Status: Acute (7) CKD (chronic kidney disease) stage 4, GFR 15-29 ml/min Priority: Secondary Status: Chronic (8) DVT prophylaxis Priority: Secondary Status: Acute Expected Duration of Placement: Less than 30 days Prognosis: Fair Aware of Diagnosis: Patient Aware of Prognosis: Patient - Transfer Medications Prescriptions: Glimepiride [Amaryl] 2 mg PO DAILY #1 tablet levoFLOXacin [Levaquin] 500 mg PO ONCE #1 tablet Metoprolol Tartrate [Lopressor] 50 mg PO BID #1 tablet Oxycodone HCl [Oxaydo] 7.5 mg PO Q6H PRN #7 tablet.orl PRN Reason: Pain predniSONE [PredniSONE] 40 mg PO DAILY #2 tablet Zolpidem [Ambien] 5 mg PO HS PRN #7 tablet PRN Reason: Insomnia Home Medications: Albuterol Sulfate [Albuterol Inhaler] 2 puff IH Q4HR PRN 06/15/15 [History] Nitroglycerin [Nitrostat] 0.4 mg SL Q5M PRN 06/15/15 [History] Bumetanide [Bumex] 0.5 mg PO DAILY #15 tablet 06/26/17 [Rx] Isosorbide MONOnitrate (24 HR) [Imdur] 60 mg PO DAILY #30 tab.er.24h 06/26/17 [ Rx] Potassium Chloride 10 meq PO DAILY #30 tab.er.prt 06/26/17 [Rx] Albuterol Neb [Proventil Neb] 2.5 mg IH Q6H PRN 07/10/17 [History] Atorvastatin [Lipitor] 40 mg PO HS tablet 07/14/17 [Rx] Enoxaparin [Lovenox] 30 mg SQ DAILY syringe 07/14/17 [Rx] Glimepiride [Amaryl] 2 mg PO DAILY #1 tablet 07/14/17 [Rx] Ipratropium/Albuterol Neb [Duoneb] 3 ml IH [id number] inhsol 07/14/17 [Rx] Metoprolol Tartrate [Lopressor] 50 mg PO BID #1 tablet 07/14/17 [Rx] Nicotine Patch [Nicoderm] 14 mg TD DAILY patch.td24 07/14/17 [Rx] Omeprazole [PriLOSEC] 20 mg PO DAILY@0630 capsule.dr 07/14/17 [Rx] Oxycodone HCl [Oxaydo] 7.5 mg PO Q6H PRN #7 tablet.orl 07/14/17 [Rx] Zolpidem [Ambien] 5 mg PO HS PRN #7 tablet 07/14/17 [Rx] amLODIPine [Norvasc] 10 mg PO DAILY tablet 07/14/17 [Rx] hydrALAZINE [HydrALAZINE] 50 mg PO TID tablet 07/14/17 [Rx] levoFLOXacin [Levaquin] 500 mg PO ONCE #1 tablet 07/14/17 [Rx] predniSONE [PredniSONE] 40 mg PO DAILY #2 tablet 07/14/17 [Rx] Allergies/Adverse Reactions: 3 Allergy/AdvReac Type Severity Reaction Status Date / Time Erythromycin Base Allergy Vomiting Verified 07/10/17 18:15 Penicillins [PCN] Allergy Rash Verified 07/10/17 18:15 codeine AdvReac Nausea Verified 07/10/17 18:15 indapamide [From Lozol] AdvReac See Verified 07/10/17 18:15 Comments - Respiratory Orders None Smoking Cessation: Smoking cessation has been advised. For more information, call the [place] Tobacco Quit Line at 0-188-WWLP-NOW. - Advance Directives Living Will: Yes Power of Aircraft Painter Apprentice: No Code Status: DNR-Arrest/Don't Intubate - History and Physical History/Physical reviewed & approved w/add comments: Right leg pruritis, Inproved respiratory ausculatory findings - Mobility Orders Ambulate - Rehabiliation Orders Rehab Potential: Good Rehab Orders: Evaluation for Physical Therapy, Evaluation for Occupational Therapy - Diet Orders Renal, Cardiac CERTIFICATION: I certify that the transfer of the above named patient to an Extended Care Facility is necessary for the continuing treatment of the diagnosis listed. The above information is true and accurate reflection of patient's current condition. Confidential - Redisclosure prohibited without a patient's written consent.
[2017-07-14] MEDS ORDERED: FLUARIX QUAD 2017-18 36MOS UP/PF 0.5 ML SYRINGE IM ONE (11:18)
[2017-07-14] MEDS ORDERED: DiphenhydraMINE CREAM 28.4 GM TUBE TP PRN (11:27)
[2017-07-14 12:25] VITALS: BP 140/61
== END 2017-07-14 13:10 | DRG 291 ==
LOC: EMEROO 18:09 → 2NENU 18:09
PROVIDERS: ADMIT Pediatrics; ATTEND Internal Medicine

== ENCOUNTER 2017-09-10 18:42 | Inpatient (IN) ==
[2017-09-10 19:52] LABS: Eosinophils % 0.1 %; Monocytes % 4.6 %; Red Cell Distribution Width 18.4 % (11.5-14.5); Segmented Neutrophils % 91.6 %
[2017-09-10 19:53] LABS: Basophils # 0.1 K/mcL (0.0-0.2); Basophils % 0.2 %; Hematocrit 33.9 % (35.3-44.9); Immature Granulocytes % 1.1 % (0-4); Lymphocytes # 0.7 K/mcL (0.6-4.6); Lymphocytes % 2.4 %; Mean Corpuscular HGB Conc 32.4 g/dL (31.6-35.5); Mean Corpuscular Hemoglobin 27.8 pg (28.0-33.3); Mean Corpuscular Volume 85.6 fL (83.0-100.0); Mean Platelet Volume 9.9 fL (9.4-12.4); Monocytes # 1.3 K/mcL (0.0-1.3); Neutrophils # 25.1 K/mcL (1.6-8.9); Platelet Count 245 K/mcL (140-400); Red Blood Count 3.96 M/mcL (3.82-4.97)
[2017-09-10 19:57] LABS: INR 1.2; Prothrombin Time 12.7 Seconds (9.4-12.1)
[2017-09-10 20:00] LABS: Activated Partial Thrombo Time 24.4 Seconds (26.0-36.0)
--- NOTE | 2017-09-10 20:02 | Emergency Department Note ---
Disposition Clinical Impression: HCAP (healthcare-associated pneumonia), LOUANN (acute kidney injury) Altered mental status Qualifiers: Altered mental status type: delirium Qualified Code(s): R41.0 - Disorientation , unspecified UTI (urinary tract infection) Qualifiers: Urinary tract infection type: acute cystitis Hematuria presence: without hematuria Qualified Code(s): N30.00 - Acute cystitis without hematuria Sepsis Qualifiers: Sepsis type: sepsis due to unspecified organism Qualified Code(s): A41.9 - Sepsis, unspecified organism Disposition: Admitted As Inpatient Condition: Fair Altered Mental Status HPI - General Chief Complaint: ED Altered Mental Status Stated Complaint: AMS Time Seen by Provider: 09/10/17 18:48 Source: EMS Limitations: altered mental status Nursing Notes Reviewed: Yes Vital Signs Reviewed: Yes - History of Present Illness HPI Narrative: 72-year-old female presents to the emergency department via EMS with concern for altered mental status at the intermediate. Patient recently had surgery on her left shoulder, was recently here in the emergency department with both opioid overdose as well as hypoglycemia. Patient has been taking oxycodone on in the intermediate facility traditions. EMS states that patient is always on oxygen via nasal cannula and has not had increased requirements for oxygen. They also state that she is alert, however she is not oriented to person or time. They stated that she was seeing some of her relatives. MD complaint: altered mental status, confusion, decreased responsiveness - Related Data Home Medications Medication Instructions Recorded Confirmed Albuterol Sulfate [Albuterol 2 puff IH Q4HR PRN 06/15/15 08/28/17 Inhaler] Nitroglycerin [Nitrostat] 0.4 mg SL Q5M PRN 06/15/15 08/28/17 Albuterol Neb [Proventil Neb] 2.5 mg IH Q6H PRN 07/10/17 08/28/17 Amlodipine Besylate 10 mg PO DAILY 08/28/17 08/28/17 Bumetanide 0.5 mg PO DAILY 08/28/17 08/28/17 Duloxetine HCl [Cymbalta] 60 mg PO DAILY 08/28/17 08/28/17 Fenofibrate Nanocrystallized 145 mg PO DAILY 08/28/17 08/28/17 [Tricor] Previous Rx's Medication Instructions Recorded Atorvastatin [Lipitor] 40 mg PO HS tablet 07/14/17 Digoxin [Lanoxin] 0.125 mg PO QOD 365 Days tablet 09/06/17 Gabapentin [Neurontin] 300 mg PO BID capsule 09/06/17 Isosorbide MONOnitrate (24 HR) 120 mg PO DAILY tab.er.24h 09/06/17 [Imdur] Metoprolol XL (24 HR) Succ [Toprol 100 mg PO DAILY tab.er.24h 09/06/17 Xl] Nitroglycerin 0.4 mg SL Q5MIN PRN tab.subl 09/06/17 OxyCODONE Immed Rel [Roxicodone 5 5 mg PO Q4HR PRN #20 tablet 09/06/17 MG] cloNIDine HCl [CloNIDine HCl] 0.2 mg PO Q8H tablet 09/06/17 Allergies Allergy/AdvReac Type Severity Reaction Status Date / Time Erythromycin Base Allergy Vomiting Verified 08/28/17 13:28 Penicillins [PCN] Allergy Rash Verified 08/28/17 13:28 codeine AdvReac Nausea Verified 09/02/17 09:39 indapamide [From Lozol] AdvReac See Verified 08/28/17 13:28 Comments Review of Systems: Chest X-Ray 09/10/17 19:22 IMPRESSION: Bilateral lower lung airspace disease with some indistinctness pulmonary vasculature suggestive of pulmonary edema. Pneumonia could have this appearance as well. Follow-up is recommended, preferably with a PA and lateral study. D/ / Antonieta Gutierrez Cha, MD / Antonieta Gutierrez Cha, MD Interpreting Provider: Antonieta Gutierrez Cha, MD All systems ED: reviewed and negative except as stated. Review of Systems: As Per HPI Constitutional: Denies: fever Cardiovascular: Denies: chest pain Past Medical History - Past Medical History Medical history: Reports: cardiomyopathy, COPD, coronary artery disease, diabetes, GERD, GI bleed, hyperlipidemia, hypertension, myocardial infarction, peripheral artery disease, renal disease Surgical history: Reports: angioplasty/stent, appendectomy, hysterectomy, orthopedic, other Psychiatric history: Reports: depression MATERIALS INSPECTOR history: Reports: no MATERIALS INSPECTOR history - Social History Smoking Status: Current every day smoker Smokeless Tobacco Status: No Alcohol use: Reports: none Drug use: Reports: none Physical Exam CONSTITUTIONAL: Somnolent female not oriented to time and place HEAD: Normocephalic; atraumatic. EYES: Pinpoint pupils, PERRL, no scleral icterus. NOSE: The nose is normal in appearance without rhinorrhea RESP: Normal chest excursion with respiration; breath sounds clear and equal bilaterally; no wheezes, rhonchi, or rales CARD: Regular rhythm, without murmurs, rub or gallop ABD: Non-distended; non-tender, soft,without rigidity, rebound or guarding SKIN: Normal for age and race; warm and dry; no apparent lesions Upper extremities: Left shoulder in sling, neurovascular intact - General Limitations: altered mental status General appearance: lethargic Course Vital Signs Temperature 97 F L 09/10/17 18:51 Pulse Rate 65 09/10/17 18:51 Respiratory Rate 14 09/10/17 18:51 Blood Pressure 158/73 09/10/17 18:51 O2 Sat by Pulse Oximetry 94 09/10/17 18:51 Temperature 98.8 F 09/10/17 23:43 Pulse Rate 67 09/10/17 23:43 Respiratory Rate 16 09/10/17 23:43 Blood Pressure 174/76 09/10/17 23:43 O2 Sat by Pulse Oximetry 97 09/10/17 23:43 Oxygen Delivery Oxygen Delivery Room Air Altered Mental Status - MDM Narrative Medical decision making narrative: 72-year-old female presents to emergency department with altered mental status. There was concern that patient may have been altered due to opioid use as this patient had recent shoulder surgery, was on OxyContin, had pinpoint pupils. Patient was given 1 mg of Narcan here in the emergency Department intranasally. Her pupils responded, but her altered mental status remained as she was still not aware of place or time. We obtained a chest x-ray which revealed bilateral lower lung airspace disease which was concerning for healthcare acquired pneumonia as this patient's had recent hospitalizations and is in intermediate. Patient also has a urinary tract infection as well. We have covered her with Levaquin, vancomycin, cefepime here in the emergency department. We also administered 2 L of fluids as well. Patient had leukocytosis of 27.4. Patient had a creatinine of 2.87. This creatinine is greatly decreased from a previous one. Potassium is mildly elevated at 4.7. Patient's electrocardiogram did not reveal any ischemic changes. Troponin was mildly elevated at 0.04. I suspect that this is due to the acute kidney injury. Lactate was within normal limits. I discussed admission with the patient and daughter at bedside. They agreed with the plan. Patient was admitted to Dr. Mckinney, the hospitalist. - Lab Data Result diagrams: 09/10/17 19:40 09/10/17 19:40 Lab Results 09/10/17 09/10/17 09/10/17 Range/Units 19:40 19:40 19:40 WBC 27.4 H D (4.3-11.1) K/mcL RBC 3.96 (3.82-4.97) M/mcL Hgb 11.0 L (11.5-15.4) g/dL Hct 33.9 L (35.3-44.9) % MCV 85.6 (83.0-100.0) fL MCH 27.8 L (28.0-33.3) pg MCHC 32.4 (31.6-35.5) g/dL RDW 18.4 H (11.5-14.5) % Plt Count 245 (140-400) K/mcL MPV 9.9 (9.4-12.4) fL Immature Gran % 1.1 (0-4) % Seg Neutrophils % 91.6 % Lymphocytes % 2.4 % Monocytes % 4.6 % Eosinophils % 0.1 % Basophils % 0.2 % Neutrophils # 25.1 H (1.6-8.9) K/mcL Lymphocytes # 0.7 (0.6-4.6) K/mcL Monocytes # 1.3 (0.0-1.3) K/mcL Eosinophils # 0.0 (0.0-0.6) K/mcL Basophils # 0.1 (0.0-0.2) K/mcL PT 12.7 H (9.4-12.1) Seconds INR 1.2 APTT 24.4 L (26.0-36.0) Seconds Sodium (136-145) mEq/L Potassium (3.5-4.5) mEq/L Chloride (98-109) mEq/L Carbon Dioxide (19-29) mEq/L BUN (7-20) mg/dL Creatinine (0.57-1.11) mg/dL Est GFR ( Amer) (> 60) Est GFR (Non-Af Amer) (> 60) BUN/Creatinine Ratio (6-26) Glucose (70-99) mg/dL Calculated Osmolality (280-300) Lactic Acid (0.5-2.2) mmol/L Calcium (8.6-10.8) mg/dL Total Bilirubin (0.2-1.2) mg/dL Direct Bilirubin (0.0-0.5) mg/dL Indirect Bilirubin (0.0-1.2) mg/dL AST (5-34) Units/L ALT (0-55) Units/L Alkaline Phosphatase (38-126) Units/L Ammonia 12 L (18-72) mcmol/L Troponin I (0-0.03) ng/mL Serum Total Protein (6.0-8.3) g/dL Albumin (3.5-5.0) g/dL Globulin (2.4-3.5) g/dL Albumin/Globulin Ratio (1.1-2.2) TSH (0.350-4.840) mcIU/mL Urine Color (Yellow) Urine Clarity (Clear) Urine pH (5.0-8.0) pH Units Ur Specific [place] (1.010-1.025) Urine Protein (Neg-Trace) mg/dL Urine Glucose (UA) (Normal) mg/dL Urine Ketones (Negative) mg/dL Urine Blood (Negative) Urine Nitrite (Negative) Urine Bilirubin (Negative) Urine Urobilinogen (Normal) mg/dL Ur Leukocyte Esterase (Negative) Urine Microscopic RBC (0-3) per hpf Urine Microscopic WBC (0-3) per hpf Ur Squamous Epith Cells (None-Few) per lpf Urine Bacteria (None-Few) per hpf Ur Culture Indicated? (NO) Urine Opiates Screen (Tkynce=619) ng/mL Ur Barbiturates Screen (Awzczf=084) ng/mL Ur Phencyclidine Scrn (Cutoff=25) ng/mL Ur Amphetamines Screen (Zitqjq=6438) ng/mL U Benzodiazepines Scrn (Vhqaqx=891) ng/mL Urine Cocaine Screen (Cutoff= 300) ng/mL U Marijuana (THC) Screen (Cutoff = 50) ng/mL Ethyl Alcohol (0-10) mg/dL 09/10/17 09/10/17 09/10/17 Range/Units 19:40 19:40 20:00 WBC (4.3-11.1) K/mcL RBC (3.82-4.97) M/mcL Hgb (11.5-15.4) g/dL Hct (35.3-44.9) % MCV (83.0-100.0) fL MCH (28.0-33.3) pg MCHC (31.6-35.5) g/dL RDW (11.5-14.5) % Plt Count (140-400) K/mcL MPV (9.4-12.4) fL Immature Gran % (0-4) % Seg Neutrophils % % Lymphocytes % % Monocytes % % Eosinophils % % Basophils % % Neutrophils # (1.6-8.9) K/mcL Lymphocytes # (0.6-4.6) K/mcL Monocytes # (0.0-1.3) K/mcL Eosinophils # (0.0-0.6) K/mcL Basophils # (0.0-0.2) K/mcL PT (9.4-12.1) Seconds INR APTT (26.0-36.0) Seconds Sodium 129 L (136-145) mEq/L Potassium 4.7 H (3.5-4.5) mEq/L Chloride 96 L (98-109) mEq/L Carbon Dioxide 18 L (19-29) mEq/L BUN 45 H (7-20) mg/dL Creatinine 2.87 H (0.57-1.11) mg/dL Est GFR ( Amer) 20 L (> 60) Est GFR (Non-Af Amer) 16 L (> 60) BUN/Creatinine Ratio 16 (6-26) Glucose 141 H (70-99) mg/dL Calculated Osmolality 282 (280-300) Lactic Acid (0.5-2.2) mmol/L Calcium 8.3 L (8.6-10.8) mg/dL Total Bilirubin 1.2 (0.2-1.2) mg/dL Direct Bilirubin 0.6 H (0.0-0.5) mg/dL Indirect Bilirubin 0.6 (0.0-1.2) mg/dL AST 19 (5-34) Units/L ALT 8 (0-55) Units/L Alkaline Phosphatase 127 H (38-126) Units/L Ammonia (18-72) mcmol/L Troponin I 0.04 H* (0-0.03) ng/mL Serum Total Protein 6.4 (6.0-8.3) g/dL Albumin 2.2 L (3.5-5.0) g/dL Globulin 4.2 H (2.4-3.5) g/dL Albumin/Globulin Ratio 0.5 L (1.1-2.2) TSH 1.363 (0.350-4.840) mcIU/mL Urine Color Yellow (Yellow) Urine Clarity Turbid A (Clear) Urine pH 6.5 (5.0-8.0) pH Units Ur Specific [place] 1.015 (1.010-1.025) Urine Protein >=300 H (Neg-Trace) mg/dL Urine Glucose (UA) Normal (Normal) mg/dL Urine Ketones Negative (Negative) mg/dL Urine Blood Large H (Negative) Urine Nitrite Negative (Negative) Urine Bilirubin Negative (Negative) Urine Urobilinogen Normal (Normal) mg/dL Ur Leukocyte Esterase Large H (Negative) Urine Microscopic RBC 5-15 H (0-3) per hpf Urine Microscopic WBC TNTC H (0-3) per hpf Ur Squamous Epith Cells Few (None-Few) per lpf Urine Bacteria Many H (None-Few) per hpf Ur Culture Indicated? YES A (NO) Urine Opiates Screen (Uelyii=407) ng/mL Ur Barbiturates Screen (Ehenet=968) ng/mL Ur Phencyclidine Scrn (Cutoff=25) ng/mL Ur Amphetamines Screen (Fralpg=5113) ng/mL U Benzodiazepines Scrn (Hixaod=854) ng/mL Urine Cocaine Screen (Cutoff= 300) ng/mL U Marijuana (THC) Screen (Cutoff = 50) ng/mL Ethyl Alcohol < 10 (0-10) mg/dL 09/10/17 09/10/17 Range/Units 20:01 21:08 WBC (4.3-11.1) K/mcL RBC (3.82-4.97) M/mcL Hgb (11.5-15.4) g/dL Hct (35.3-44.9) % MCV (83.0-100.0) fL MCH (28.0-33.3) pg MCHC (31.6-35.5) g/dL RDW (11.5-14.5) % Plt Count (140-400) K/mcL MPV (9.4-12.4) fL Immature Gran % (0-4) % Seg Neutrophils % % Lymphocytes % % Monocytes % % Eosinophils % % Basophils % % Neutrophils # (1.6-8.9) K/mcL Lymphocytes # (0.6-4.6) K/mcL Monocytes # (0.0-1.3) K/mcL Eosinophils # (0.0-0.6) K/mcL Basophils # (0.0-0.2) K/mcL PT (9.4-12.1) Seconds INR APTT (26.0-36.0) Seconds Sodium (136-145) mEq/L Potassium (3.5-4.5) mEq/L Chloride (98-109) mEq/L Carbon Dioxide (19-29) mEq/L BUN (7-20) mg/dL Creatinine (0.57-1.11) mg/dL Est GFR ( Amer) (> 60) Est GFR (Non-Af Amer) (> 60) BUN/Creatinine Ratio (6-26) Glucose (70-99) mg/dL Calculated Osmolality (280-300) Lactic Acid 0.8 (0.5-2.2) mmol/L Calcium (8.6-10.8) mg/dL Total Bilirubin (0.2-1.2) mg/dL Direct Bilirubin (0.0-0.5) mg/dL Indirect Bilirubin (0.0-1.2) mg/dL AST (5-34) Units/L ALT (0-55) Units/L Alkaline Phosphatase (38-126) Units/L Ammonia (18-72) mcmol/L Troponin I (0-0.03) ng/mL Serum Total Protein (6.0-8.3) g/dL Albumin (3.5-5.0) g/dL Globulin (2.4-3.5) g/dL Albumin/Globulin Ratio (1.1-2.2) TSH (0.350-4.840) mcIU/mL Urine Color (Yellow) Urine Clarity (Clear) Urine pH (5.0-8.0) pH Units Ur Specific [place] (1.010-1.025) Urine Protein (Neg-Trace) mg/dL Urine Glucose (UA) (Normal) mg/dL Urine Ketones (Negative) mg/dL Urine Blood (Negative) Urine Nitrite (Negative) Urine Bilirubin (Negative) Urine Urobilinogen (Normal) mg/dL Ur Leukocyte Esterase (Negative) Urine Microscopic RBC (0-3) per hpf Urine Microscopic WBC (0-3) per hpf Ur Squamous Epith Cells (None-Few) per lpf Urine Bacteria (None-Few) per hpf Ur Culture Indicated? (NO) Urine Opiates Screen Negative (Doxzwa=069) ng/mL Ur Barbiturates Screen Negative (Aalgku=317) ng/mL Ur Phencyclidine Scrn Negative (Cutoff=25) ng/mL Ur Amphetamines Screen Negative (Uwfwnz=5852) ng/mL U Benzodiazepines Scrn Negative (Ilagki=660) ng/mL Urine Cocaine Screen Negative (Cutoff= 300) ng/mL U Marijuana (THC) Screen Negative (Cutoff = 50) ng/mL Ethyl Alcohol (0-10) mg/dL - EKG Data EKG attestation: Yes I reviewed and interpreted this EKG. EKG results narrative: 19:41 Ventricular rate 70 bpm, appearing of 147 ms, QS duration 116 ms, QT 363 ms, QTC 384 segs, normalizes. Sinus rhythm with ventricular 70 bpm. There are T-wave inversions in leads 3 and V6 that are noted on his electrocardiogram. No previous study to compare this one to. Attestation Statement - Attestation Attestation: I examined this patient and my medical decision-making was reviewed with the Resident Physician. I agree with the documented findings, disposition and treatment plan as described except to the extent set forth below. 72-year-old female brought to the ED by EMS because of altered mental status. She recently had a fracture of the left proximal humerus undergo surgical fixation. She was discharged to intermediate for rehabilitation. A few days later she presented to the emergency department because of altered mental status was found to have recurrent hypoglycemia as well as opiate toxicity. She ultimately required admission to the hospital on a D10 infusion along with repeat doses of Narcan. She improved and was discharged back to the care facility but returns today because of worsening confusion and weakness. She is unable to contribute much to her history of present illness on arrival. Elderly female who is fairly somnolent but arousable. Maintains good airway protection. Gag reflex intact. The remainder dry. Neck is supple. Chest diminished breath sounds at both bases. No wheezes appreciated. Cardiac exam regular. Chest wall is nontender. Abdomen soft and nontender. Lower extremities without asymmetric edema. Chest x-ray with bibasilar infiltrates. Significant leukocytosis with moderate decline in her renal function. Hyponatremia. Urinalysis remarkable for large white cells and bacteria. She started on broad-spectrum antibiotics to cover for both HCAP As well as the UTI. She will be admitted for aggressive intervention.
[2017-09-10 20:05] LABS: Alanine Aminotransferase 8 Units/L (0-55); Albumin 2.2 g/dL (3.5-5.0); Albumin/Globulin Ratio 0.5 (1.1-2.2); Alkaline Phosphatase 127 Units/L (38-126); Aspartate Amino Transferase 19 Units/L (5-34); BUN/Creatinine Ratio 16 (6-26); Bilirubin,Direct 0.6 mg/dL (0.0-0.5); Bilirubin,Indirect 0.6 mg/dL (0.0-1.2); Bilirubin,Total 1.2 mg/dL (0.2-1.2); Blood Urea Nitrogen 45 mg/dL (7-20); Calcium 8.3 mg/dL (8.6-10.8); Carbon Dioxide 18 mEq/L (19-29); Chloride 96 mEq/L (98-109); Globulin 4.2 g/dL (2.4-3.5); Glucose 141 mg/dL (70-99); Osmolality,Calculated 282 (280-300); Potassium 4.7 mEq/L (3.5-4.5); Sodium 129 mEq/L (136-145); Total Protein 6.4 g/dL (6.0-8.3); eGFR For African Americans 20 (> 60); eGFR For Non-African Americans 16 (> 60)
[2017-09-10 20:07] LABS: Ethanol < 10 mg/dL (0-10)
[2017-09-10 20:13] LABS: Amphetamine Screen,Urine Negative ng/mL (Cutoff=1000); Barbiturate Screen,Urine Negative ng/mL (Cutoff=200); Benzodiazepines Screen,Urine Negative ng/mL (Cutoff=200); Cannabinoid Screen,Urine Negative ng/mL (Cutoff = 50); Cocaine Screen,Urine Negative ng/mL (Cutoff= 300); Opiate Screen,Urine Negative ng/mL (Cutoff=300); Phencyclidine Screen,Urine Negative ng/mL (Cutoff=25)
[2017-09-10] MEDS ORDERED: 0.9 % Sodium Chloride 1,000 ML IVC ONE ×2 (20:13→20:21)
[2017-09-10] MEDS ORDERED: Vancomycin 1,000 MG in D5% in Water 250 ML IVPB ONE ×2 (20:17→20:31)
[2017-09-10] MEDS ORDERED: Cefepime HCl 2,000 MG in Water for inj. (sterile) 20 ML IVP ONE (20:20)
[2017-09-10 20:31] LABS: Thyroid Stimulating Hormone 1.363 mcIU/mL (0.350-4.840)
[2017-09-10 20:51] LABS: Bilirubin,Urine Negative (Negative); Clarity,Urine Turbid (Clear); Color,Urine Yellow (Yellow); Glucose,Urine (UA) Normal (Normal); Ketones,Urine Negative (Negative)
[2017-09-10 20:52] LABS: Blood,Urine Large (Negative); Leukocyte Esterase,Urine Large (Negative); Nitrite,Urine Negative (Negative); PH,Urine 6.5 pH Units (5.0-8.0); Protein,Urine >=300 mg/dL (Neg-Trace); Specific Gravity,Urine 1.015 (1.010-1.025); Urobilinogen,Urine Normal (Normal)
[2017-09-10 20:54] LABS: Bacteria,Urine Many per hpf (None-Few); WBC,Urine TNTC per hpf (0-3)
[2017-09-10 20:55] LABS: Squamous Epithelial Cell,Urine Few per lpf (None-Few)
[2017-09-10] MEDS ORDERED: Levofloxacin 750 MG/150 ML 750 MG/150 ML BAG IVPB ONE (21:47)
[2017-09-11] MEDS ORDERED: Vancomycin 1,000 MG in D5% in Water 250 ML IVPB SCH (09:00)
[2017-09-11] MEDS ORDERED: Nitroglycerin 0.4 MG TAB.SUBL SL PRN (09:17)
[2017-09-11] MEDS ORDERED: Albuterol 2.5 MG/3 ML NEBULIZER IH PRN (09:17)
[2017-09-11] MEDS ORDERED: Ondansetron 4 MG/2 ML VIAL IVP PRN (09:25)
[2017-09-11] MEDS ORDERED: Naloxone 0.4 MG/ML INJ IVP PRN (09:25)
[2017-09-11] MEDS: 0.9 % Sodium Chloride 1,000 ML IVC SCH ×2 (09:46→19:41)
[2017-09-11] MEDS: *HR* Digoxin 0.125 MG TABLET PO SCH (09:46)
[2017-09-11] MEDS: Nicotine 14 MG PATCH.TD24 TD SCH (09:46)
--- NOTE | 2017-09-11 09:48 | Internal Med History&Physical ---
<KwakuJuni Barroso - Last Filed: 09/11/17 10:26> Date of Encounter: 09/11/17 Time of Encounter: 07:30 Assessment and Plan (1) Altered mental status Current visit: Yes Status: Acute Acute AMS as reported by staff at [facility] for the past two days most likely d/t current UTI and pneumonia. Pt. has has hx of opiate overdose from use of oxycodone for pain management. Pt. is currently A&O x1 (person only). Falls/safety precautions. Will hold pts. current pain medications d/t AMS and administer Tylenol 650 mg PRN for pain to assess for AMS improvement. Aspiration precautions w/meals d/t AMS. Monitor pt. closely for signs of neurological decline. Pt. is at high risk for further morbidity and infection based on current sx, UTI, pneumonia, hx, and risk factors. Inpatient. Qualifiers: Altered mental status type: delirium Qualified Code(s): R41.0 - Disorientation, unspecified (2) HCAP (healthcare-associated pneumonia) Current visit: Yes Status: Acute 1-View CXR today shows bilateral lower lung airspace disease with some indistinctness pulmonary vasculature suggestive of pulmonary edema. Pneumonia could have this appearance as well. Pt. is resident at [facility] for rehabilitation r/t left shoulder surgery. She reports cough w/green sputum production. Blood cultures 2 ordered. Sputum culture ordered. Strep pneumoniae and legionella urine antigens ordered. Supplemental O2 with SPO2 monitoring. DuoNeb every 4 hours scheduled and will continue patient's inhalers PRN. Patient is allergic to penicillin so IVPB cefepime 1000 mg every 12, vancomycin pharmacy dosing, and Levaquin 500 mg every 48 for infection coverage with renal dosing to current renal dysfunction. Will adjust abx coverage based on culture results. Monitor pt. and f/u labs. (3) UTI (urinary tract infection) Current visit: Yes Status: Acute Initial U/A indicative for UTI. Urine culture ordered. Pt. reports urinary frequency and urgency. IVPB cefepime 1,000 mg Q12, vancomycin with pharmacy dosing, and Levaquin 500 mg every 48 for infection coverage w/renal dosing d/t current renal function. Monitor I&O and f/u labs. Qualifiers: Urinary tract infection type: acute cystitis Hematuria presence: without hematuria Qualified Code(s): N30.00 - Acute cystitis without hematuria (4) LOUANN (acute kidney injury) Current visit: Yes Status: Acute Acute kidney injury superimposed on CKD w/current creatinine of 2.87 and GFR of 16. Initial U/A indicative for UTI. Urine culture ordered. Will monitor renal function in f/u labs and avoid nephrotoxins. Renal dosing for abx coverage. Monitor I&O. (5) Hyperkalemia Current visit: Yes Status: Acute Acutely elevated potassium of 4.7 on admission. Pt. received IV boluses of 0.9 NS in ED w/foolow-up of 100 mL/HR. Monitor potassium levels in a.m. labs. Continuous cardiac telemetry. (6) Elevated troponin Current visit: Yes Status: Acute Acutely elevated troponin of 0.04 most likely reactive. Pt. denies chest pain or cardiac sx. Will trend x2. Continuous cardiac telemetry. (7) Diabetes Current visit: Yes Status: Chronic Hx of chronic diabetes. Pt. does not currently take oral anti-hyperglycemics or use insulin. BG checks ACHS. Add low-dose correction insulin sliding scale PRN w /hypoglycemic protocol. A1c in a.m. labs. Qualifiers: Diabetes mellitus type: type 2 Diabetes mellitus complication status: with unspecified complications Diabetes mellitus buttermaker continuous churn insulin use: unspecified fci insulin use status Qualified Code(s): E11.8 - Type 2 diabetes mellitus with unspecified complications (8) HTN (hypertension) Current visit: Yes Status: Chronic Hx of chronic HTN. Monitor pt. and VS. Continue patient's amlodipine, metoprolol , Imdur, digoxin, and bumetanide Qualifiers: Hypertension type: essential hypertension Qualified Code(s): I10 - Essential (primary) hypertension (9) HLD (hyperlipidemia) Current visit: Yes Status: Chronic Hx of chronic HLD. Lipid panel in a.m. labs. Continue pts. Lipitor. Hold Tricor d/t current renal function. Qualifiers: Hyperlipidemia type: pure hypercholesterolemia Qualified Code(s): E78.00 - Pure hypercholesterolemia, unspecified; E78.0 - Pure hypercholesterolemia (10) GERD (gastroesophageal reflux disease) Current visit: Yes Status: Chronic Hx of chronic GERD. Zofran IVP Q6 PRN for N/V. Protonix 40 mg IVP daily. Qualifiers: Esophagitis presence: esophagitis presence not specified Qualified Code(s) : K21.9 - Gastro-esophageal reflux disease without esophagitis (11) Tobacco abuse Current visit: Yes Status: Chronic Hx of chronic tobacco abuse. Pt. reports she smokes 1 PPD. 14 mg nicotine patch daily. (12) Anemia Current visit: Yes Status: Chronic Hx of chronic anemia. Current Hgb is 11.0 and Hct is 33.9 on admission which are higher than pts. previous readings and baseline. Monitor H/H in f/u labs. Bilateral SCDs on LEs for DVT prophylaxis d/t current Hgb/Hct and hx of GI bleeds. Monitor pt. for signs of unusual bleeding. Qualifiers: Anemia type: other cause Other causes of anemia: other cause, not classified Qualified Code(s): D64.89 - Other specified anemias (13) CAD (coronary artery disease) Current visit: Yes Status: Chronic Hx of chronic CAD. Continuous cardiac telemetry. Continue patient's amlodipine , metoprolol, Imdur, digoxin, bumetanide, and Lipitor. Add 81 mg aspirin therapy daily. Qualifiers: Coronary Disease-Associated Artery/Lesion type: [place] artery [place] vs. transplanted heart: [place] heart Associated angina: without angina Qualified Code(s): I25.10 - Atherosclerotic heart disease of [place] coronary artery without angina pectoris (14) DVT prophylaxis Current visit: Yes Status: Acute Bilateral SCDs on LEs for DVT prophylaxis d/t current anemia and hx of GI bleed. Monitor pt. for signs of unusual bleeding. Internal Medicine - H&P: HPI Chief complaint: AMS Admitted From: Long-term Nursing Facility Plans for Post Hospital Care: Transfer Snf Facility History of present illness: Ms. Nur is a 72 year old female with medical hx of cardiomyopathy, COPD, CAD, diabetes, GERD, previous GI bleed, hyperlipidemia, hypertension, previous IA, PAD, and renal disease presents from [facility] with chief complaint of altered mental status for the past 2 days. Previous left shoulder surgery. Is recently seen in ED for hypoglycemia as well as opioid overdose. Patient takes Roxicodone 5 mg every 4 when necessary. Patient states she is confused and unsure what year it is is oriented to person. Patient reports abdominal pain, SOB, cough w/green sputum production, and urinary urgency but denies recent illness, fever, chills, nausea, vomiting, chest pain, palpitations , changes in vision, headache, unusual bleeding, numbness, tingling, presyncope , or syncope. Past Med Surg Social Fam HX - Past Medical History Source: patient, old records reviewed Medical history: cardiomyopathy, COPD, coronary artery disease, diabetes, GERD, GI bleed, hyperlipidemia, hypertension, myocardial infarction, peripheral artery disease, renal disease Psychiatric history: depression - Past Surgical History Surgical History: angioplasty/stent, appendectomy, hysterectomy, orthopedic, other - Social History Smoking Status: Current every day smoker Packs per day: 1 PPD Smokeless Tobacco Status: No Alcohol use: none Drug use: none Current living situation: Assisted Living Activity Level: Uses cane/walker Recent Out of Country Travel Within the Last 8 Weeks: No Exposure or Possible Exposure to Illness During Travel: No - Family History Father Adopted: No Race: Family Member Ethnicity: Non- Living Status: Age at : 77 Cause of : Lung cancer Hx Family Cardiac Disorders: Yes (CAD, IA) Hx Family Cancer: Yes (Lung) Mother Adopted: No Race: Family Member Ethnicity: Non- Living Status: Cause of : IA Hx Family Cardiac Disorders: Yes (IA, CAD) Hx Family Endocrine Disorder: Yes (Diabetes) Brother Race: Family Member Ethnicity: Non- Living Status: Age at : 52 Cause of : Cancer Hx Family Cancer: Yes Internal Medicine - H&P: Meds RX: Albuterol Sulfate [Albuterol Inhaler] 2 puff IH Q4HR PRN 06/15/15 [History] RX: Albuterol Neb [Proventil Neb] 2.5 mg IH Q6H PRN 07/10/17 [History] RX: Atorvastatin [Lipitor] 40 mg PO HS tablet 07/14/17 [Rx] RX: Amlodipine Besylate 10 mg PO DAILY 08/28/17 [History] RX: Bumetanide 0.5 mg PO DAILY 08/28/17 [History] RX: Duloxetine HCl [Cymbalta] 60 mg PO DAILY 08/28/17 [History] RX: Fenofibrate Nanocrystallized [Tricor] 145 mg PO DAILY 08/28/17 [History] RX: Gabapentin [Neurontin] 300 mg PO BID capsule 09/06/17 [Rx] RX: Isosorbide MONOnitrate (24 HR) [Imdur] 120 mg PO DAILY tab.er.24h 09/06/17 [Rx] RX: Metoprolol XL (24 HR) Succ [Toprol Xl] 100 mg PO DAILY tab.er.24h 09/06/17 [Rx] RX: Nitroglycerin 0.4 mg SL Q5MIN PRN tab.subl 09/06/17 [Rx] RX: OxyCODONE Immed Rel [Roxicodone 5 MG] 5 mg PO Q4HR PRN #20 tablet 09/06/17 [ Rx] RX: cloNIDine HCl [CloNIDine HCl] 0.2 mg PO Q8H tablet 09/06/17 [Rx] Digoxin [Lanoxin] 0.125 mg PO Q48H 09/11/17 [History] 3 Allergy/AdvReac Type Severity Reaction Status Date / Time Erythromycin Base Allergy Vomiting Verified 08/28/17 13:28 Penicillins [PCN] Allergy Rash Verified 08/28/17 13:28 codeine AdvReac Nausea Verified 09/02/17 09:39 indapamide [From Lozol] AdvReac See Verified 08/28/17 13:28 Comments All Systems PM: A 10-system review of systems was performed and is negative for pertinent findings except as documented above in the HPI. - Constitutional Constitutional: no chills, no fever(s), no night sweats - EENT Eyes: no change in vision, no discharge, no pain, no photophobia Ears: no ear discharge, no ear pain, no tinnitus Nose, mouth and throat: no dysphagia, no nasal discharge, no neck pain, no sore throat - Breasts Breasts: as per HPI - Cardiovascular Cardiovascular ROS IM: as per HPI, dyspnea, dyspnea on exertion - Respiratory Respiratory: as per HPI, cough, dyspnea, dyspnea on exertion - Gastrointestinal Gastrointestinal: as per HPI, abdominal pain - Genitourinary Genitourinary: as per HPI, urinary urgency, no change in urinary stream, no dysuria, no flank pain, no hematuria Menstruation: post hysterectomy - Musculoskeletal Musculoskeletal ROS IM: no numbness, no tingling - Integumentary Integumentary IM: no rash, no unusual bruising - Neurological Neurological ROS: as per HPI, confusion - Psychiatric Psychiatric: as per HPI, depression - Endocrine Endocrine IM: as per HPI - Hematologic/Lymphatic Hematologic/Lymphatic: no easy bruising - Allergic/Immunologic Allergic/Immunologic: as per HPI - Constitutional Vitals: Temp Pulse Resp BP Pulse Ox 98.0 F 68 22 155/70 97 09/11/17 07:19 09/11/17 07:19 09/11/17 07:19 09/11/17 07:19 09/11/17 07:19 General appearance: Present: A&O X 1, no acute distress, underweight, answers questions appropriately (With repeated attempts. Is unsure of some information.) - Head Head exam: Present: atraumatic, normal inspection, normocephalic - Eye Eye exam: Present: PERRL, conjuntiva pink, sclera anicteric Pupils: Present: PERRL - ENT ENT exam: Present: normal exam, normal external ear exam - Neck Neck exam general surgery: Present: normal inspection, supple, trachea midline - Respiratory Respiratory exam: Present: decreased breath sounds. Absent: accessory muscle use, rales, rhonchi, wheezes - Cardiovascular Cardiovascular exam: Present: RRR, +S1, +S2. Absent: diastolic murmur, gallop, rubs, systolic murmur - GI/Abdominal GI/Abdominal exam: Present: normal bowel sounds, soft, tenderness, no peritoneal signs. Absent: distended - Rectal Rectal exam: Present: deferred - Additional comments: exam deferred. - Extremities Exam Extremities exam: Present: warm, radial pulses palpable and symmetrical. Absent : calf tenderness, cyanotic, pedal edema - Back Exam Back exam: Present: normal inspection - Neurological Exam Neurological exam: Present: altered - Psychiatric Psychiatric exam: Present: flat affect - Skin Skin exam: Present: dry, intact Internal Med - H&P Results - Labs CBC & Chem 7: 09/10/17 19:40 09/10/17 19:40 - EKG Data EKG shows normal: sinus rhythm - EKG Data Prior EKG available for review: no EKG comments: 09/11/17 09:55 EKG dated 09/10/17 shows sinus rhythm with moderate intraventricular conduction delay and nonspecific T-wave abnormality. - Diagnostic Studies Chest x-ray Additional comments: Impressions Chest X-Ray 09/10/17 19:22 IMPRESSION: Bilateral lower lung airspace disease with some indistinctness pulmonary vasculature suggestive of pulmonary edema. Pneumonia could have this appearance as well. Follow-up is recommended, preferably with a PA and lateral study. D/ / Antonieta Gutierrez Cha, MD / Antonieta Gutierrez Cha, MD Interpreting Provider: Antonieta Gutierrez Cha, MD <OsirisBashir Barroso - Last Filed: 09/11/17 11:12> Date of Encounter: 09/11/17 Internal Medicine - H&P: HPI History of present illness: Ms. Nur is a 72 year old female All Systems PM: A 10-system review of systems was performed and is negative for pertinent findings except as documented above in the HPI. - Constitutional Vitals: Temp Pulse Resp BP Pulse Ox 98.0 F 68 22 155/70 97 09/11/17 07:19 09/11/17 07:19 09/11/17 07:19 09/11/17 07:19 09/11/17 07:19 Internal Med - H&P Results - Labs CBC & Chem 7: 09/10/17 19:40 09/10/17 19:40
[2017-09-11 10:52] LABS: Acinetobacter baumannii by PCR Not Detected (Not Detect); Candida albicans by PCR Not Detected (Not Detect); Candida glabrata by PCR Not Detected (Not Detect); Candida krusei by PCR Not Detected (Not Detect); Candida parapsilosis by PCR Not Detected (Not Detect); Candida tropicalis by PCR Not Detected (Not Detect); Enterococcus by PCR Not Detected (Not Detect); Escherichia coli by PCR ***DETECTED*** (Not Detect); Klebsiella oxytoca by PCR Not Detected (Not Detect); Klebsiella pneumoniae by PCR Not Detected (Not Detect); Pseudomonas aeruginosa by PCR Not Detected (Not Detect); Serratia marcescens by PCR Not Detected (Not Detect); Staphylococcus aureus by PCR Not Detected (Not Detect); Streptococcus agalactiae(B)PCR Not Detected (Not Detect); Streptococcus by PCR Not Detected (Not Detect); Streptococcus pneumoniae PCR Not Detected (Not Detect); Streptococcus pyogenes (A) PCR Not Detected (Not Detect); blaKPC Carbapenem-Resist Gene Not Detected (Not Detect); mecA Methicillin-Resist Gene Not Detected (Not Detect); vanA/B Vancomycin-Resist Genes Not Detected (Not Detect)
[2017-09-11] MEDS: Pantoprazole 40 MG VIAL IVP SCH (11:08)
[2017-09-11] MEDS: Aspirin Enteric Coated 81 MG Tablet PO SCH (11:08)
--- NOTE | 2017-09-11 11:15 | Event Note ---
Date of Encounter: 09/11/17 Time of Encounter: 11:00 Discussed with SHALONDA and agree with assessment and plan. Patient with leukocytosis secondary to bacteremia (Escherichia coli) due to acute cystitis. In addition, Chest x-ray that is suspicious for pneumonia. Continue IV antibiotics. Will also gradually correct hyponatremia and treat LOUANN with IV fluids; will continue to monitor.
[2017-09-11] MEDS: Ipratropium/Albuterol Neb 3 ML IH SCH ×4 (11:45→23:06)
[2017-09-11] MEDS: Cefepime HCl 1,000 MG in Water for inj. (sterile) 10 ML IVP SCH (16:52)
[2017-09-11] MEDS ORDERED: Cefepime HCl 1,000 MG in D5% in Water (Mini-Bag+) 100 ML IVPB SCH (18:00)
--- NOTE | 2017-09-11 19:22 | Electrocardiograph Report ---
[place] [id number] Test Date: 2017-09-10 Pat Name: Jennifer Nur Department: 104 Room: 3B11 Gender: F Horologist Apprentice: : 1945 Requested By: Magen Correa Order Number: [id number] Reading MD: Gilberto Land DO Measurements Intervals [place] Rate: 70 P: 95 ND: 147 QRS: 65 QRSD: 116 T: -4 QT: 363 QTc: 384 Interpretive Statements SINUS RHYTHM MODERATE INTRAVENTRICULAR CONDUCTION DELAY [110+ ms QRS DURATION] NONSPECIFIC T-WAVE ABNORMALITY Electronically Signed On 09-11-2017 19:21:33 EST by Gilberto Land DO
[2017-09-12] MEDS: Ipratropium/Albuterol Neb 3 ML IH SCH ×6 (03:14→23:38)
[2017-09-12 04:39] LABS: INR 1.3; Prothrombin Time 14.1 Seconds (9.4-12.1)
[2017-09-12 04:42] LABS: Activated Partial Thrombo Time 22.8 Seconds (26.0-36.0)
[2017-09-12 04:52] LABS: Albumin/Globulin Ratio 0.4 (1.1-2.2); Chol/HDL Ratio 10.3 (0-4.9); Globulin 3.6 g/dL (2.4-3.5); Magnesium 1.2 mg/dL (1.6-2.6); Total Protein 5.2 g/dL (6.0-8.3)
[2017-09-12 04:54] LABS: Albumin 1.6 g/dL (3.5-5.0); Potassium 4.7 mEq/L (3.5-4.5)
[2017-09-12] MEDS: 0.9 % Sodium Chloride 1,000 ML IVC SCH ×2 (05:51→18:33)
[2017-09-12] MEDS: Cefepime HCl 1,000 MG in Water for inj. (sterile) 10 ML IVP SCH ×2 (05:51→18:31)
[2017-09-12 05:57] LABS: Eosinophils % 0.1 %; Hematocrit 28.6 % (35.3-44.9); Hemoglobin 9.3 g/dL (11.5-15.4); Immature Granulocytes % 0.9 % (0-4); Mean Corpuscular HGB Conc 32.5 g/dL (31.6-35.5); Red Cell Distribution Width 18.6 % (11.5-14.5)
[2017-09-12 05:59] LABS: Basophils % 0.1 %; Lymphocytes # 0.6 K/mcL (0.6-4.6); Lymphocytes % 2.1 %; Mean Corpuscular Hemoglobin 27.3 pg (28.0-33.3); Mean Corpuscular Volume 83.9 fL (83.0-100.0); Mean Platelet Volume 10.2 fL (9.4-12.4); Monocytes # 1.4 K/mcL (0.0-1.3); Monocytes % 4.9 %; Neutrophils # 26.7 K/mcL (1.6-8.9); Platelet Count 184 K/mcL (140-400); Red Blood Count 3.41 M/mcL (3.82-4.97); Segmented Neutrophils % 91.9 %
[2017-09-12 06:23] LABS: Anisocytosis 1+ (Not Present); Burr Cells 3+ (Not Present); Platelet Estimate Normal (Normal)
[2017-09-12] MEDS: Isosorbide MONOnitrate (24 HR) 60 MG TAB.ER.24H PO SCH (08:13)
[2017-09-12] MEDS: Bumetanide 1 MG TABLET PO SCH (08:13)
[2017-09-12] MEDS: Aspirin Enteric Coated 81 MG Tablet PO SCH (08:13)
[2017-09-12] MEDS: Metoprolol XL (24 HR) Succ 50 MG TAB.ER.24H PO SCH (08:14)
[2017-09-12] MEDS: Pantoprazole 40 MG VIAL IVP SCH (08:14)
[2017-09-12] MEDS: amLODIPine 5 MG TABLET PO SCH (08:14)
[2017-09-12] MEDS: Nicotine 14 MG PATCH.TD24 TD SCH (08:14)
[2017-09-12] MEDS ORDERED: Vancomycin 500 MG in D5% in Water (Mini-Bag+) 100 ML IVPB ONE (09:00)
[2017-09-12] MEDS ORDERED: FENOFIBRATE NANOCRYSTALLIZED 145 MG PO SCH (09:00)
[2017-09-12] MEDS ORDERED: Vancomycin 500 MG in D5% in Water 100 ML IVPB ONE (11:00)
[2017-09-12 16:50] LABS: Bilirubin,Urine Negative (Negative); Blood,Urine Large (Negative); Clarity,Urine Cloudy (Clear); Color,Urine Yellow (Yellow); Glucose,Urine (UA) Normal (Normal); Ketones,Urine Negative (Negative); Leukocyte Esterase,Urine Large (Negative); Nitrite,Urine Negative (Negative); PH,Urine 6.5 pH Units (5.0-8.0); Protein,Urine 100 mg/dL (Neg-Trace); Specific Gravity,Urine 1.009 (1.010-1.025); Urobilinogen,Urine Normal (Normal)
[2017-09-12 16:52] LABS: Bacteria,Urine Moderate per hpf (None-Few); Hyaline Casts,Urine None Seen per lpf (None-Few); Squamous Epithelial Cell,Urine None Seen per lpf (None-Few); WBC,Urine TNTC per hpf (0-3)
[2017-09-12 17:48] LABS: Protein/Creatinine Ratio,Urine 7.45 mg/mg (0-0.20)
[2017-09-12] MEDS: Acetaminophen 325 MG TABLET PO PRN (20:23)
--- NOTE | 2017-09-12 21:51 | Internal Med Progress Note ---
Date of Encounter: 09/12/17 Time of Encounter: 09:46 - Assessment and plan (1) Altered mental status Current Visit: Yes Status: Acute Assessment and plan: Acute AMS as reported by staff at [facility] for the past two days most likely d/t current UTI and pneumonia. Pt. has has hx of opiate overdose from use of oxycodone for pain management. Pt. is currently A&O x1 (person only). Falls/safety precautions. Will hold pts. current pain medications d/t AMS and administer Tylenol 650 mg PRN for pain to assess for AMS improvement. Aspiration precautions w/meals d/t AMS. Monitor pt. closely for signs of neurological decline. Pt. is at high risk for further morbidity and infection based on current sx, UTI, pneumonia, hx, and risk factors. Qualifiers: Altered mental status type: delirium Qualified Code(s): R41.0 - Disorientation, unspecified (2) UTI (urinary tract infection) Current Visit: Yes Status: Acute Assessment and plan: Initial U/A indicative for UTI. Urine culture ordered. Pt. reports urinary frequency and urgency. IVPB cefepime 1,000 mg Q12, vancomycin with pharmacy dosing, and Levaquin 500 mg every 48 for infection coverage w/renal dosing d/t current renal function. Monitor I&O and f/u labs. Qualifiers: Urinary tract infection type: acute cystitis Hematuria presence: without hematuria Qualified Code(s): N30.00 - Acute cystitis without hematuria (3) HCAP (healthcare-associated pneumonia) Current Visit: Yes Status: Acute Assessment and plan: 1-View CXR today shows bilateral lower lung airspace disease with some indistinctness pulmonary vasculature suggestive of pulmonary edema. Pneumonia could have this appearance as well. Pt. is resident at [facility] for rehabilitation r/t left shoulder surgery. She reports cough w/green sputum production. Blood cultures 2 ordered. Sputum culture ordered. Strep pneumoniae and legionella urine antigens ordered. Supplemental O2 with SPO2 monitoring. DuoNeb every 4 hours scheduled and will continue patient's inhalers PRN. Patient is allergic to penicillin so IVPB cefepime 1000 mg every 12, vancomycin pharmacy dosing, and Levaquin 500 mg every 48 for infection coverage with renal dosing to current renal dysfunction. Will adjust abx coverage based on culture results. Monitor pt. and f/u labs. (4) Acute kidney injury superimposed on chronic kidney disease Current Visit: No Status: Acute Assessment and plan: Acute kidney injury superimposed on CKD w/current creatinine of 2.87 and GFR of 16. Today Cr worsenedInitial U/A indicative for UTI. Urine culture ordered. Will monitor renal function in f/u labs and avoid nephrotoxins. Renal dosing for abx coverage. Monitor I&O. Insert viera catheter with close monitoring, renal ultrasound, FEUrea, urine protein level. May need Nephrology consult. (5) CAD (coronary artery disease) Current Visit: Yes Status: Chronic Assessment and plan: Continuous cardiac telemetry. Continue patient's amlodipine, metoprolol, Imdur , digoxin, bumetanide, and Lipitor. Add 81 mg aspirin therapy daily. Qualifiers: Coronary Disease-Associated Artery/Lesion type: [place] artery [place] vs. transplanted heart: [place] heart Associated angina: without angina Qualified Code(s): I25.10 - Atherosclerotic heart disease of [place] coronary artery without angina pectoris (6) CKD (chronic kidney disease), stage IV Current Visit: No Status: Chronic (7) DM (diabetes mellitus), type 2 Current Visit: No Status: Chronic Assessment and plan: Pt. does not currently take oral anti-hyperglycemics or use insulin. BG checks ACHS. Add low-dose correction insulin sliding scale PRN w/hypoglycemic protocol. A1c in a.m. labs. Qualifiers: Diabetes mellitus complication status: with kidney complications Diabetes mellitus complication detail: with chronic kidney disease Diabetes mellitus intermediate designer insulin use: with custodial use Chronic kidney disease stage: stage 3 (moderate) Qualified Code(s): E11.22 - Type 2 diabetes mellitus with diabetic chronic kidney disease; N18.3 - Chronic kidney disease, stage 3 ( moderate); Z79.4 - group home (current) use of insulin (8) DVT prophylaxis Current Visit: Yes Status: Acute Assessment and plan: Bilateral SCDs on LEs for DVT prophylaxis d/t current anemia and hx of GI bleed. Monitor pt. for signs of unusual bleeding. (9) GERD (gastroesophageal reflux disease) Current Visit: Yes Status: Chronic Assessment and plan: Protonix 40 mg IVP daily. Qualifiers: Esophagitis presence: esophagitis presence not specified Qualified Code(s) : K21.9 - Gastro-esophageal reflux disease without esophagitis (10) HLD (hyperlipidemia) Current Visit: Yes Status: Chronic Assessment and plan: Continue pts. Lipitor. Hold Tricor d/t current renal function. Qualifiers: Hyperlipidemia type: pure hypercholesterolemia Qualified Code(s): E78.00 - Pure hypercholesterolemia, unspecified; E78.0 - Pure hypercholesterolemia (11) HTN (hypertension) Current Visit: Yes Status: Chronic Assessment and plan: Monitor pt. and VS. Continue patient's amlodipine, metoprolol, Imdur. May need hydralazine prn if patient SBP>160 and is not tachycardic. Qualifiers: Hypertension type: essential hypertension Qualified Code(s): I10 - Essential (primary) hypertension (12) Hyperkalemia Current Visit: Yes Status: Acute (13) Hypertension Current Visit: No Status: Chronic Qualifiers: Hypertension type: essential hypertension Qualified Code(s): I10 - Essential (primary) hypertension - Subjective Interval history: Patient [facility] with altered mental status, likely from UTI and HAP. She was found to have LOUANN. She has history of altered mental status from opiate overdose and hypoglycemia. She was placed on renally dosed Cefepime , Levaquin, and Vancomycin. She has hyponatremia that is improving with IV fluids. Today patient is somnolent but responds to commands, AAOx1. Nursing reported this AM that she had bladder fullness. Bladder scan showed 700 cc, 600 was removed via straight cath. Rescanned bladder and had approx 500 on bladder scan. - Constitutional Vitals: Temp Pulse Resp BP Pulse Ox 98.4 F 75 15 163/63 98 09/12/17 18:57 09/12/17 18:57 09/12/17 19:20 09/12/17 18:57 09/12/17 19:20 General appearance: Present: A&O X 1, no acute distress, underweight, answers questions appropriately (With repeated attempts. Is unsure of some information.) Exam: CVS: RRR Lungs: diminished breath sounds at bases, clear abd: soft, NT/ND Ext: no edema Internal Medicine: Result - Labs CBC & Chem 7: 09/12/17 05:07 09/12/17 03:58 Labs: Short CBC 09/12/17 Range/Units 05:07 WBC 29.0 H (4.3-11.1) K/mcL Hgb 9.3 L D (11.5-15.4) g/dL Hct 28.6 L (35.3-44.9) % Plt Count 184 (140-400) K/mcL Neutrophils # 26.7 H (1.6-8.9) K/mcL BMP 09/12/17 03:58 Sodium 131 L Potassium 4.7 H Chloride 103 Carbon Dioxide 13 L BUN 53 H Creatinine 3.31 H Glucose 93 Calcium 8.0 L Liver Function 09/12/17 Range/Units 03:58 Total Bilirubin 1.0 (0.2-1.2) mg/dL AST 17 (5-34) Units/L ALT 6 (0-55) Units/L Alkaline Phosphatase 111 (38-126) Units/L Albumin 1.6 L D (3.5-5.0) g/dL Urine 09/12/17 Range/Units 16:30 Urine Color Yellow (Yellow) Urine Clarity Cloudy A (Clear) Urine pH 6.5 (5.0-8.0) pH Units Ur Specific Terry 1.009 L (1.010-1.025) Urine Protein 100 H (Neg-Trace) mg/dL Urine Glucose (UA) Normal (Normal) mg/dL - ABG Interpretation ABG results: PT/INR, D-dimer PT 14.1 Seconds (9.4-12.1) H 09/12/17 03:58 - Impressions Impressions Retroperitoneum Ultrasound 09/12/17 17:00 IMPRESSION: Unremarkable ultrasound of the kidneys. No hydronephrosis. Viera catheter in the bladder. D/ / Gokul Bose MD / Gokul Bose MD Interpreting Provider: Gokul Bose MD - VTE Documentation of Mechanical Device: Intermittent pneumatic compression device Consult Discharge Plan - Plan Referrals: Aureliano Horton MD [Primary Care Provider] -
[2017-09-12] MEDS ORDERED: Levofloxacin 500 MG/100 ML 500 MG/100 ML BAG IVPB SCH (23:15)
[2017-09-12] MEDS ORDERED: Ketorolac 15 MG/ML VIAL IVP ONE (23:52)
[2017-09-13] MEDS: Ipratropium/Albuterol Neb 3 ML IH SCH ×6 (04:26→23:15)
[2017-09-13 05:08] LABS: Basophils % 0.1 %; Eosinophils # 0.4 K/mcL (0.0-0.6); Eosinophils % 1.9 %; Hematocrit 26.9 % (35.3-44.9); Hemoglobin 8.6 g/dL (11.5-15.4); Immature Granulocytes % 1.5 % (0-4); Lymphocytes # 0.7 K/mcL (0.6-4.6); Mean Corpuscular Hemoglobin 27.1 pg (28.0-33.3); Mean Corpuscular Volume 84.9 fL (83.0-100.0); Mean Platelet Volume 10.4 fL (9.4-12.4); Monocytes # 1.2 K/mcL (0.0-1.3); Monocytes % 5.2 %; Neutrophils # 19.4 K/mcL (1.6-8.9); Platelet Count 169 K/mcL (140-400); Red Blood Count 3.17 M/mcL (3.82-4.97); Red Cell Distribution Width 18.7 % (11.5-14.5); Segmented Neutrophils % 88.3 %
[2017-09-13] MEDS: Cefepime HCl 1,000 MG in Water for inj. (sterile) 10 ML IVP SCH ×2 (05:20→15:57)
[2017-09-13 05:22] LABS: Albumin 1.3 g/dL (3.5-5.0); Albumin/Globulin Ratio 0.4 (1.1-2.2); Bilirubin,Total 0.8 mg/dL (0.2-1.2); Calcium 7.5 mg/dL (8.6-10.8); Globulin 3.4 g/dL (2.4-3.5); Potassium 4.5 mEq/L (3.5-4.5); Total Protein 4.7 g/dL (6.0-8.3)
[2017-09-13] MEDS: 0.9 % Sodium Chloride 1,000 ML IVC SCH ×2 (05:31→15:22)
[2017-09-13] MEDS: Acetaminophen 325 MG TABLET PO PRN (05:35)
[2017-09-13] MEDS ORDERED: Aminoglycoside Consult 1 EACH MC ONE (07:53)
[2017-09-13] MEDS: Aspirin Enteric Coated 81 MG Tablet PO SCH (09:22)
[2017-09-13] MEDS: *HR* Digoxin 0.125 MG TABLET PO SCH (09:22)
[2017-09-13] MEDS: Pantoprazole 40 MG VIAL IVP SCH (09:22)
[2017-09-13] MEDS: Isosorbide MONOnitrate (24 HR) 60 MG TAB.ER.24H PO SCH (09:23)
[2017-09-13] MEDS: amLODIPine 5 MG TABLET PO SCH (09:23)
[2017-09-13] MEDS: Bumetanide 1 MG TABLET PO SCH (09:23)
[2017-09-13] MEDS: Metoprolol XL (24 HR) Succ 50 MG TAB.ER.24H PO SCH (09:23)
[2017-09-13] MEDS: Nicotine 14 MG PATCH.TD24 TD SCH (09:24)
[2017-09-13] MEDS ORDERED: *HR* Dextrose 50 % in Water (Syg) 50 ML SYRINGE IVP PRN (18:32)
[2017-09-13] MEDS ORDERED: Dextrose Gel 15 GM PO PRN ×2 (18:32)
[2017-09-13] MEDS ORDERED: D5% in Water 1,000 ML IVC PRN (18:32)
[2017-09-13] MEDS ORDERED: Ertapenem 500 MG in Water for inj. (sterile) 10 ML IVP ONE (19:53)
[2017-09-13] MEDS: Insulin LISPRO 300 UNITS/3 ML VIAL SQ SCH (21:26)
--- NOTE | 2017-09-13 22:46 | Internal Med Progress Note ---
Date of Encounter: 09/13/17 Time of Encounter: 13:43 - Assessment and plan (1) Altered mental status Current Visit: Yes Status: Acute Assessment and plan: Acute AMS as reported by staff at [facility] for two days prior to admission. Likely from UTI and pneumonia. She does have recent admission for hypoglycemia and also opiate overdose from use of oxycodone for pain. Pt. is currently A&O x1 (person only). Falls/safety precautions. Will hold pts. current pain medications d/t AMS and administer Tylenol 650 mg PRN for pain to assess for AMS improvement. Aspiration precautions w/meals d/t AMS. Monitor pt. closely for signs of neurological decline. Pt. is at high risk for further morbidity and infection based on current sx, UTI, pneumonia, hx, and risk factors. addendum: ESBL sensitivies have returned today: Multiple resistance. Will start patient on renally dosed Ertapenem 500 mg daily and discontinue other agents. Qualifiers: Altered mental status type: delirium Qualified Code(s): R41.0 - Disorientation, unspecified (2) UTI (urinary tract infection) Current Visit: Yes Status: Acute Assessment and plan: Initial U/A indicative for UTI. Urine culture ordered. Pt. reports urinary frequency and urgency. IVPB cefepime 1,000 mg Q12, vancomycin with pharmacy dosing, and Levaquin 500 mg every 48 for infection coverage w/renal dosing d/t current renal function. ESBL sensitivies have returned 09/13: Multiple resistance. Will start patient on renally dosed Ertapenem 500 mg daily and discontinue other agents. Qualifiers: Urinary tract infection type: acute cystitis Hematuria presence: without hematuria Qualified Code(s): N30.00 - Acute cystitis without hematuria (3) HCAP (healthcare-associated pneumonia) Current Visit: Yes Status: Acute Assessment and plan: 1-View CXR today shows bilateral lower lung airspace disease with some indistinctness pulmonary vasculature suggestive of pulmonary edema. Pneumonia could have this appearance as well. Pt. is resident at [facility] for rehabilitation r/t left shoulder surgery. She reports cough w/green sputum production. Blood cultures 2 ordered. Sputum culture ordered. Strep pneumoniae and legionella urine antigens ordered. Supplemental O2 with SPO2 monitoring. DuoNeb every 4 hours scheduled. Patient is allergic to penicillin so IVPB cefepime 1000 mg every 12, vancomycin pharmacy dosing, and Levaquin 500 mg every 48 for infection coverage with renal dosing to current renal dysfunction. Discontinued changed to ertapenem She was found to be positive for ESBL which was resistent to multiple agents. She will be started on renally dosed ertapenem, which should cover for UTI as well as CAP. If she needs MRSA coverage, will need to re-add vancomycin but only absolutely needed given renal function. (4) Acute kidney injury superimposed on chronic kidney disease Current Visit: No Status: Acute Assessment and plan: Acute kidney injury superimposed on CKD with admission creatinine of 2.87 that is now 3.5. Underlying cause likely sepsis. A renal ultrasound was negative. Culture 09/13 sensitivities indicate she is inadequately covered with Vanc/ Cefepime/Levequin. These agents were discontinued and she will be started on ertapenem. Will monitor renal function in f/u labs and avoid nephrotoxins. Matamoros in 09/12, monitor I/Os with close monitoring Nephrology consult in AM. (5) CAD (coronary artery disease) Current Visit: Yes Status: Chronic Assessment and plan: Continuous cardiac telemetry. Continue patient's amlodipine, metoprolol, Imdur , and Lipitor. Add 81 mg aspirin therapy daily. Hold Bumex due to renal function. Qualifiers: Coronary Disease-Associated Artery/Lesion type: [place] artery [place] vs. transplanted heart: [place] heart Associated angina: without angina Qualified Code(s): I25.10 - Atherosclerotic heart disease of [place] coronary artery without angina pectoris (6) CKD (chronic kidney disease), stage IV Current Visit: No Status: Chronic (7) DM (diabetes mellitus), type 2 Current Visit: No Status: Chronic Assessment and plan: Pt. does not currently take oral anti-hyperglycemics or use insulin. BG checks ACHS. Add low-dose correction insulin sliding scale PRN w/hypoglycemic protocol. A1c in a.m. labs. 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 use Chronic kidney disease stage: stage 3 (moderate) Qualified Code(s): E11.22 - Type 2 diabetes mellitus with diabetic chronic kidney disease; N18.3 - Chronic kidney disease, stage 3 ( moderate); Z79.4 - penitentiary (current) use of insulin (8) DVT prophylaxis Current Visit: Yes Status: Acute (9) GERD (gastroesophageal reflux disease) Current Visit: Yes Status: Chronic Qualifiers: Esophagitis presence: esophagitis presence not specified Qualified Code(s) : K21.9 - Gastro-esophageal reflux disease without esophagitis (10) HLD (hyperlipidemia) Current Visit: Yes Status: Chronic Assessment and plan: Continue pts. Lipitor. Hold Tricor d/t current renal function. Qualifiers: Hyperlipidemia type: pure hypercholesterolemia Qualified Code(s): E78.00 - Pure hypercholesterolemia, unspecified; E78.0 - Pure hypercholesterolemia (11) HTN (hypertension) Current Visit: Yes Status: Chronic Assessment and plan: Monitor pt. and VS. Continue patient's amlodipine, metoprolol, Imdur. May need hydralazine prn if patient SBP>160 and is not tachycardic. Qualifiers: Hypertension type: essential hypertension Qualified Code(s): I10 - Essential (primary) hypertension (12) Hyperkalemia Current Visit: Yes Status: Acute (13) Hypertension Current Visit: No Status: Chronic Qualifiers: Hypertension type: essential hypertension Qualified Code(s): I10 - Essential (primary) hypertension - Subjective Interval history: 09/03/17 09:33 Ms. Nur is a 72 year old female who was transferred from [facility] overflow to [facility] for admission after she presented there with hypoglycemia and confusion/ hallucinations. The emergency room report from [facility] stated family observed she had been acting abnormally for the last 2-3 days with hallucinations (talking to people not in the room). Blood sugar was 43 when squad arrived. An amp of D50 was given IV and she was transported to [facility] emergency room. She was given additional IV dextrose but because of Lantus and Amaryl use it was felt best to admit her for safety and ongoing care needs. I saw the patient on September 03 and performed the history and physical. Lantus and Amaryl were discontinued and IV dextrose was given as needed to maintain normal glycemia. Her blood sugars remained satisfactory and she will remain off diabetic medications at discharge. Her mental status returned to baseline after blood sugars returned to normal range. Renal function remained stable during hospitalization with creatinine 1.49 on the day of discharge with estimated GFR of 34. Bn peptide was elevated at greater than 5000. She was started on Lanoxin and given increased dose of isosorbide. Lisinopril was discontinued because of azotemia and hyperkalemia. She will continue on Bumex. She was not dyspneic on the day of discharge. Hemoglobin decreased to 6.7 on September 05. Anemia testing showed iron 21, transferrin saturation 6%, transferrin 243, ferritin 123, B12 800, and folate 9.4. She was given 2 units packed red blood cells and an iron dextran infusion. Hemoglobin had risen to 9.7 on the day of discharge. On September 06 arrangements were complete for her to be discharged to [facility] for ongoing therapy. Patient presented from [facility] with altered mental status, likely from UTI and HAP. She was recently admitted on 09/03 for altered mental status from hypoglycemia and possibly opiate overdose. She was found to have LOUANN on CKD, which baseline was most recently 1.49 with GFR of 34 from her last hospital discharge. This admission she was placed on renally dosed Cefepime, Levaquin, and Vancomycin. She has hyponatremia that is improving with IV fluids. Patient has been somnolent but responds to commands, AAOx1. She does not have any issues with breathing. She has had bladder fullness on 09/12 and so Matamoros catheter was placed. Renal function did not improve with IVF nor antibiotics. 09/13 lab informed that blood positive for ESBL E coli. - Constitutional Vitals: Temp Pulse Resp BP Pulse Ox 97.9 F 72 16 196/68 98 09/13/17 19:06 09/13/17 19:06 09/13/17 19:45 09/13/17 19:06 09/13/17 19:45 General appearance: Present: A&O X 1, no acute distress, underweight, answers questions appropriately (With repeated attempts. Is unsure of some information.) Exam: - Head Head exam: Present: atraumatic, normal inspection, normocephalic - Eye Eye exam: Present: PERRL, conjuntiva pink, sclera anicteric Pupils: Present: PERRL - ENT ENT exam: Present: normal exam, normal external ear exam - Neck Neck exam general surgery: Present: normal inspection, supple, trachea midline - Respiratory Respiratory exam: Present: decreased breath sounds. Absent: accessory muscle use, rales, rhonchi, wheezes - Cardiovascular Cardiovascular exam: Present: RRR, +S1, +S2. Absent: diastolic murmur, gallop, rubs, systolic murmur - Extremities Exam Extremities exam: Present: warm, radial pulses palpable and symmetrical. Absent : calf tenderness, cyanotic, pedal edema - Back Exam Back exam: Present: normal inspection - Neurological Exam Neurological exam: Present: altered - Psychiatric Psychiatric exam: Present: flat affect - Skin Skin exam: Present: dry, intact Internal Medicine: Result - Labs CBC & Chem 7: 09/13/17 03:59 09/13/17 03:59 Labs: Short CBC 09/13/17 Range/Units 03:59 WBC 22.0 H (4.3-11.1) K/mcL Hgb 8.6 L (11.5-15.4) g/dL Hct 26.9 L (35.3-44.9) % Plt Count 169 (140-400) K/mcL Neutrophils # 19.4 H (1.6-8.9) K/mcL BMP 09/13/17 03:59 Sodium 132 L Potassium 4.5 Chloride 106 Carbon Dioxide 14 L BUN 61 H Creatinine 3.52 H Glucose 103 H Calcium 7.5 L Liver Function 09/13/17 Range/Units 03:59 Total Bilirubin 0.8 (0.2-1.2) mg/dL AST 14 (5-34) Units/L ALT 7 (0-55) Units/L Alkaline Phosphatase 95 (38-126) Units/L Albumin 1.3 L (3.5-5.0) g/dL - ABG Interpretation ABG results: PT/INR, D-dimer PT 14.1 Seconds (9.4-12.1) H 09/12/17 03:58 - VTE Documentation of Mechanical Device: Intermittent pneumatic compression device Consult Discharge Plan - Plan Referrals: Aureliano Horton MD [Primary Care Provider] -
[2017-09-14] MEDS: 0.9 % Sodium Chloride 1,000 ML IVC SCH ×6 (01:41→16:29)
[2017-09-14] MEDS: Ipratropium/Albuterol Neb 3 ML IH SCH ×7 (03:16→23:21)
[2017-09-14] MEDS: Acetaminophen 325 MG TABLET PO PRN ×2 (03:52→13:28)
[2017-09-14 05:55] LABS: Basophils % 0.2 %; Eosinophils # 0.5 K/mcL (0.0-0.6); Eosinophils % 2.4 %; Hematocrit 29.9 % (35.3-44.9); Hemoglobin 9.5 g/dL (11.5-15.4); Immature Granulocytes % 1.6 % (0-4); Lymphocytes # 0.7 K/mcL (0.6-4.6); Lymphocytes % 3.5 %; Mean Corpuscular HGB Conc 31.8 g/dL (31.6-35.5); Mean Corpuscular Volume 84.9 fL (83.0-100.0); Monocytes # 1.1 K/mcL (0.0-1.3); Monocytes % 5.2 %; Neutrophils # 18.4 K/mcL (1.6-8.9); Platelet Count 199 K/mcL (140-400); Red Blood Count 3.52 M/mcL (3.82-4.97); Segmented Neutrophils % 87.1 %
[2017-09-14 06:09] LABS: Albumin 1.4 g/dL (3.5-5.0); Albumin/Globulin Ratio 0.4 (1.1-2.2); Bilirubin,Total 0.8 mg/dL (0.2-1.2); Calcium 7.7 mg/dL (8.6-10.8); Globulin 3.9 g/dL (2.4-3.5); Magnesium 1.8 mg/dL (1.6-2.6); Potassium 4.7 mEq/L (3.5-4.5); Total Protein 5.3 g/dL (6.0-8.3)
[2017-09-14 08:24] LABS: Digoxin 1.3 ng/mL (0.8-2.0)
[2017-09-14] MEDS: Metoprolol XL (24 HR) Succ 50 MG TAB.ER.24H PO SCH (08:25)
[2017-09-14] MEDS: Isosorbide MONOnitrate (24 HR) 60 MG TAB.ER.24H PO SCH (08:25)
[2017-09-14] MEDS: Nicotine 14 MG PATCH.TD24 TD SCH (08:25)
[2017-09-14] MEDS: amLODIPine 5 MG TABLET PO SCH (08:25)
[2017-09-14] MEDS: Aspirin Enteric Coated 81 MG Tablet PO SCH (08:25)
--- NOTE | 2017-09-14 08:28 | Nephrology Consult Note ---
Date of Encounter: 09/14/17 Time of Encounter: 08:25 Assessment and Plan (1) LOUANN (acute kidney injury) Current Visit: Yes Status: Acute The patient has a clinical picture of acute kidney injury in the setting of Escherichia coli bacteremia and urinary tract infection. She has a history of late stage III to early stage IV chronic kidney disease in the setting of a diagnosis of hypertension and diabetes. She also has been shown to have urinary retention based on recent bladder scan. Her acute kidney injury continues to worsen. She continues to have an elevated white blood cell count despite what appears to be appropriate antibiotics. I would suggest discontinuing the vancomycin since it is potentially nephrotoxic. If gram- positive coverage as desired I would use something less nephrotoxic such as Zyvox. Void all other nephrotoxins as well. Continue IV fluids. Continue to monitor urine output. It may be worthwhile to explore the possibilities to whether or not the patient may have a shoulder infection given the fact that her white blood cell count remains elevated despite appropriate antibiotics. Her blood pressure also needs to be under better control. I will make some adjustments to her medical regimen for that. For renal function continues to worsen she may require dialysis. She does not require dialysis at this point in time. (2) Chronic kidney disease, stage III (moderate) Current Visit: Yes Status: Acute (3) UTI (urinary tract infection) Current Visit: Yes Status: Acute Qualifiers: Urinary tract infection type: site unspecified Hematuria presence: with hematuria Qualified Code(s): N39.0 - Urinary tract infection, site not specified; R31.9 - Hematuria, unspecified; R31.9 - Hematuria, unspecified (4) Bacteremia Current Visit: Yes Status: Acute (5) S/P shoulder replacement Current Visit: Yes Status: Acute Qualifiers: Laterality: left Qualified Code(s): Z96.612 - Presence of left artificial shoulder joint History of Present Illness - History of Present Illness This is a 72-year-old female who was recently admitted to the hospital for mental status changes. She has been diagnosed with Escherichia coli bacteremia as well as an Escherichia coli urinary tract infection and possible pneumonia. Patient has acute kidney injury superimposed on late stage III to early stage IV chronic kidney disease. Patient is confused. She is unable to give any history. History from the medical record indicates that the patient underwent a left shoulder replacement back in August. She subsequently was placed in an ECF for rehabilitation. She developed mental status changes and subsequently was sent to the emergency room and admitted to the hospital for further evaluation and management. She currently is being treated for sepsis with the source being Escherichia coli both in the blood in the urine. She is on cefepime and vancomycin. Baseline creatinine appears to be between 1.5-2.2. On admission to the hospital creatinine was 2.87. Crit has continued to increase and currently is 3.87. Urine output yesterday was 400 mL. Medical record indicates that the patient did have a large volume of urine in the bladder on bladder scan. It measured 700 mL. She was treated For 600 mL. She currently has a Matamoros catheter in place. Renal ultrasound shows a smaller left kidney compared to the right. Echogenicity is normal and there was no hydronephrosis according to the report. Urinalysis shows some proteinuria, hematuria, pyuria, and bacteria. Despite antibiotics her white blood cell count remains elevated at 21.1. The patient remains confused. She also remains hypertensive. The patient's past medical history includes diabetes, hypertension, coronary artery disease, as well as a smoking history. Past Med Surg Social Fam HX - Past Medical History Medical history: cardiomyopathy, COPD, coronary artery disease, diabetes, GERD, GI bleed, hyperlipidemia, hypertension, myocardial infarction, peripheral artery disease, renal disease Psychiatric history: depression - Past Surgical History Surgical History: angioplasty/stent, appendectomy, hysterectomy, orthopedic, other - Social History Smoking Status: Current every day smoker Packs per day: 1 PPD Smokeless Tobacco Status: No Alcohol use: none Drug use: none - Family History Brother Race: Family Member Ethnicity: Non- Living Status: Age at : 52 Cause of : Cancer Hx Family Cancer: Yes Father Adopted: No Race: Family Member Ethnicity: Non- Living Status: Age at : 77 Cause of : Lung cancer Hx Family Cardiac Disorders: Yes (CAD, [place]) Hx Family Respiratory Disorders: Yes Hx Family Cancer: Yes (Lung) Hx Family GI Disorders: No Hx Family Endocrine Disorder: Yes Hx Family Neuromuscular Disorders: No Hx Family Neurologic Disorders: No Hx Family HEENT Disorders: No Hx Family Autoimmune Disorders: No Mother Adopted: No Race: Family Member Ethnicity: Non- Living Status: Cause of : [place] Hx Family Cardiac Disorders: Yes ([place], CAD) Hx Family Respiratory Disorders: Yes Hx Family Cancer: No Hx Family GI Disorders: Yes Hx Family Endocrine Disorder: Yes (Diabetes) Hx Family Neuromuscular Disorders: No Hx Family Neurologic Disorders: No Hx Family HEENT Disorders: No Hx Family Autoimmune Disorders: No Medications and Allergies Albuterol Sulfate [Albuterol Inhaler] 2 puff IH Q4HR PRN 06/15/15 [History] Albuterol Neb [Proventil Neb] 2.5 mg IH Q6H PRN 07/10/17 [History] Atorvastatin [Lipitor] 40 mg PO HS tablet 07/14/17 [Rx] Amlodipine Besylate 10 mg PO DAILY 08/28/17 [History] Bumetanide 0.5 mg PO DAILY 08/28/17 [History] Duloxetine HCl [Cymbalta] 60 mg PO DAILY 08/28/17 [History] Fenofibrate Nanocrystallized [Tricor] 145 mg PO DAILY 08/28/17 [History] Gabapentin [Neurontin] 300 mg PO BID capsule 09/06/17 [Rx] Isosorbide MONOnitrate (24 HR) [Imdur] 120 mg PO DAILY tab.er.24h 09/06/17 [Rx] Metoprolol XL (24 HR) Succ [Toprol Xl] 100 mg PO DAILY tab.er.24h 09/06/17 [Rx] Nitroglycerin 0.4 mg SL Q5MIN PRN tab.subl 09/06/17 [Rx] OxyCODONE Immed Rel [Roxicodone 5 MG] 5 mg PO Q4HR PRN #20 tablet 09/06/17 [Rx] cloNIDine HCl [CloNIDine HCl] 0.2 mg PO Q8H tablet 09/06/17 [Rx] Digoxin [Lanoxin] 0.125 mg PO Q48H 09/11/17 [History] 3 Allergy/AdvReac Type Severity Reaction Status Date / Time Erythromycin Base Allergy Vomiting Verified 08/28/17 13:28 Penicillins [PCN] Allergy Rash Verified 08/28/17 13:28 codeine AdvReac Nausea Verified 09/02/17 09:39 indapamide [From Lozol] AdvReac See Verified 08/28/17 13:28 Comments Review of Systems ROS unobtainable: due to mental status Exam - Vital Signs Vital signs: Initial Vital Signs Temp Pulse Resp BP Pulse Ox 97 F L 65 14 158/73 94 12/05/17 18:51 09/10/17 18:51 09/10/17 18:51 09/10/17 18:51 09/10/17 18:51 Vital Signs - Last 8 Hours Temp Pulse Resp BP Pulse Ox 09/14/17 07:50 18 98 09/14/17 03:18 18 97 09/14/17 03:07 97.9 F 88 16 208/69 91 Intake and Output 09/13/17 09/14/17 09/14/17 23:59 07:59 15:59 Intake Total 1000 / 1000 Output Total 400 / 400 Balance -400 / -400 1000 / 1000 Intake: IV Fluids 1000 / 1000 0.9 % Sodium Chloride 1,000 ML 1000 / 1000 @ 100 mls/hr IVC .Q10H JEFF Rx#: [id number] Output: Urine 0 / 0 Catheter 400 / 400 Other: Weight 70.261 kg Blood Glucose* 135 Patient Weight 09/14/17 23:59 Weight 70.261 kg - General Appearance Exam: Patient is confused. Her speech is garbled. She has a sling involving her left shoulder and arm. There is a recent incision with a dressing in place. There is no erythema or purulence. Lungs diminished breath sounds. Heart regular rate and rhythm. Abdomen shows normal bowel sounds or bruits masses organomegaly or tenderness. There is minimal lower extremity swelling. A Matamoros catheter is in place draining dark urine. She is on a maintenance IV at 100 mL per hour. Results - Lab Results 09/14/17 05:47 09/14/17 05:47 Most recent lab results Calcium 7.7 mg/dL (8.6-10.8) L 09/14/17 05:47 Magnesium 1.8 mg/dL (1.6-2.6) 09/14/17 05:47 Urine Creatinine 29 mg/dL 09/12/17 16:30 Urine Total Protein 216 mg/dL (1-14) H 09/12/17 16:30 Consult Discharge Plan - Plan Referrals: Aureliano Horton MD [Primary Care Provider] -
[2017-09-14] MEDS: Pantoprazole 40 MG VIAL IVP SCH (08:32)
[2017-09-14] MEDS: Insulin LISPRO 300 UNITS/3 ML VIAL SQ SCH ×4 (08:45→20:53)
--- NOTE | 2017-09-14 10:03 | Internal Med Progress Note ---
Date of Encounter: 09/14/17 Time of Encounter: 09:58 - Assessment and plan (1) Sepsis Current Visit: Yes Status: Acute Assessment and plan: Likely from ESBL Escherichia coli UTI however also due to pneumonia or infected left shoulder status post surgery. Follow-up blood cultures, continue ertapenem , start Zyvox. Patient is now high acuity she will be transferred there Qualifiers: Sepsis type: sepsis due to unspecified organism Qualified Code(s): A41.9 - Sepsis, unspecified organism (2) Altered mental status Current Visit: Yes Status: Acute Assessment and plan: Acute AMS as reported by staff at [facility] for two days prior to admission. Likely from UTI and pneumonia. She has recent admission for hypoglycemia and also opiate overdose from use of oxycodone for pain. She possibly aspirated during that time. Pt. is currently A&O x1 (person only). Falls/safety precautions. Will hold pts. current pain medications d/t AMS and administer Tylenol 650 mg PRN for pain to assess for AMS improvement. Aspiration precautions w/meals d/t AMS. Monitor pt. closely for signs of neurological decline. Pt. is at high risk for further morbidity and infection based on current sx, UTI, pneumonia, hx, and risk factors. 09/13 ESBL sensitivies have returned today: Multiple resistance. Will start patient on renally dosed Ertapenem 500 mg daily and discontinue other agents. Patient's acuity is high and she may need to be transferred to . Qualifiers: Altered mental status type: delirium Qualified Code(s): R41.0 - Disorientation, unspecified (3) UTI (urinary tract infection) Current Visit: Yes Status: Acute Assessment and plan: Initial U/A indicative for UTI. Urine culture ordered. Pt. reports urinary frequency and urgency. IVPB cefepime 1,000 mg Q12, vancomycin with pharmacy dosing, and Levaquin 500 mg every 48 for infection coverage w/renal dosing d/t current renal function. ESBL sensitivies have returned 09/13: Multiple resistance. Will start patient on renally dosed Ertapenem 500 mg daily and discontinue other agents. Qualifiers: Urinary tract infection type: acute cystitis Hematuria presence: without hematuria Qualified Code(s): N30.00 - Acute cystitis without hematuria (4) HCAP (healthcare-associated pneumonia) Current Visit: Yes Status: Acute Assessment and plan: 1-View CXR today shows bilateral lower lung airspace disease with some indistinctness pulmonary vasculature suggestive of pulmonary edema. Pneumonia could have this appearance as well. Pt. is resident at [facility] for rehabilitation r/t left shoulder surgery. She reports cough w/green sputum production. Blood cultures 2 ordered. Sputum culture ordered. Strep pneumoniae and legionella urine antigens ordered. She was on cefepime, vancomycin, and Levaquin on admission. Based on sensitivities 09/13 she was switched to ertapenem. Cover community-acquired pneumonia, but she does not have MRSA coverage. She was found to be positive for ESBL which was resistent to multiple agents. She will be started on renally dosed ertapenem, which should cover for UTI as well as CAP. If she needs MRSA coverage, will need to re-add vancomycin but only absolutely needed given renal function. Vancomycin is nephrotoxic and we started her to do Zyvox. (5) Acute kidney injury superimposed on chronic kidney disease Current Visit: No Status: Acute Assessment and plan: Acute kidney injury superimposed on CKD with admission creatinine of 2.87 Continues to worsen due to ESBL UTI sepsis. A renal ultrasound was negative. Culture 09/13 sensitivities indicate she is inadequately covered with Vanc/ Cefepime/Levequin. These agents were discontinued and she will be started on ertapenem. Will monitor renal function in f/u labs and avoid nephrotoxins. Matamoros in 09/12, monitor I/Os with close monitoring. He had 400 mL overnight, and 200 this morning. We will increase IV fluid and monitor for signs of fluid overload. She needs MRSA coverage but has severe renal impairment and we will start Zyvox (6) CAD (coronary artery disease) Current Visit: Yes Status: Chronic Assessment and plan: Continuous cardiac telemetry. Continue patient's amlodipine, metoprolol, Imdur , and Lipitor. Add 81 mg aspirin therapy daily. Hold Bumex due to renal function. Qualifiers: Coronary Disease-Associated Artery/Lesion type: y[place]k artery Crow vs. transplanted heart: yurok heart Associated angina: without angina Qualified Code(s): I25.10 - Atherosclerotic heart disease of y[place]k coronary artery without angina pectoris (7) CKD (chronic kidney disease), stage IV Current Visit: No Status: Chronic (8) DM (diabetes mellitus), type 2 Current Visit: No Status: Chronic Assessment and plan: Pt. does not currently take oral anti-hyperglycemics or use insulin. BG checks ACHS. Add low-dose correction insulin sliding scale PRN w/hypoglycemic protocol. A1c in a.m. labs. 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 Qualifiers: Esophagitis presence: esophagitis presence not specified Qualified Code(s) : K21.9 - Gastro-esophageal reflux disease without esophagitis (10) HLD (hyperlipidemia) Current Visit: Yes Status: Chronic Assessment and plan: Continue pts. Lipitor. Hold Tricor d/t current renal function. Qualifiers: Hyperlipidemia type: pure hypercholesterolemia Qualified Code(s): E78.00 - Pure hypercholesterolemia, unspecified; E78.0 - Pure hypercholesterolemia (11) HTN (hypertension) Current Visit: Yes Status: Chronic Assessment and plan: Name severely hypertensive today Continue patient's amlodipine, metoprolol, Imdur. She has hydralazine IV when necessary systolic blood pressure greater than 160. Because her acuity is increased remaining to transfer her to today. Qualifiers: Hypertension type: essential hypertension Qualified Code(s): I10 - Essential (primary) hypertension (12) Hyperkalemia Current Visit: Yes Status: Acute Assessment and plan: 4.7 which is acceptable range (13) Hypertension Current Visit: No Status: Chronic Qualifiers: Hypertension type: essential hypertension Qualified Code(s): I10 - Essential (primary) hypertension (14) DVT prophylaxis Current Visit: Yes Status: Acute Assessment and plan: Bilateral SCDs on LEs for DVT prophylaxis d/t current anemia and hx of GI bleed. Monitor pt. for signs of unusual bleeding. 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 Qualifiers: Laterality: left Qualified Code(s): Z96.612 - Presence of left artificial shoulder joint - Subjective Interval history: Patient presented from group home with altered mental status, likely from UTI and HAP. She was recently admitted on 09/03 for altered mental status from hypoglycemia and possibly opiate overdose. She also has a recent history of left shoulder surgery. During this admission She was found to have LOUANN on CKD. Her baseline was most recently 1.49 with GFR of 34 from her last hospital discharge. This admission she was placed on renally dosed Cefepime, Levaquin, and Vancomycin. She has hyponatremia that is improving with IV fluids. Patient has been somnolent but responds to commands, AAOx1. She does not have any issues with breathing. She has had bladder fullness on 09/12 and so Matamoros catheter was placed. Renal function did not improve with judicious IVF hydration nor antibiotics. 09/13 lab informed that blood positive for ESBL E coli. She is only received 1 dose of ertapenem to date. This morning patient complains to me about severe left shoulder pain. Her [place]oros is draining slight amount of yellow purulent urine. She was afebrile overnight. - Constitutional Vitals: Temp Pulse Resp BP Pulse Ox 97.8 F 79 19 216/89 93 09/14/17 08:40 09/14/17 08:40 09/14/17 08:40 09/14/17 09:01 09/14/17 08:40 Exam: Gen: Patient is in mild distress and from left shoulder pain. CVS: Regular rate and rhythm Lungs: diminished breath sounds at bases, no rales at the apices difficult to appreciate any breath sounds at the bases. : Only is draining thick purulent urine. Extremities: Bilateral bipedal edema mostly and ankles that is pitting. Left shoulder is braced with a 5 cm linear incision anterior portion of the shoulder. There is no drainage or active bleed at the site. Dressing is clean. Internal Medicine: Result - Labs CBC & Chem 7: 09/14/17 05:47 09/14/17 05:47 Labs: Short CBC 09/14/17 Range/Units 05:47 WBC 21.1 H (4.3-11.1) K/mcL Hgb 9.5 L (11.5-15.4) g/dL Hct 29.9 L (35.3-44.9) % Plt Count 199 (140-400) K/mcL Neutrophils # 18.4 H (1.6-8.9) K/mcL BMP 09/14/17 05:47 Sodium 134 L Potassium 4.7 H Chloride 108 Carbon Dioxide 15 L BUN 62 H Creatinine 3.87 H Glucose 90 Calcium 7.7 L Liver Function 09/14/17 Range/Units 05:47 Total Bilirubin 0.8 (0.2-1.2) mg/dL AST 17 (5-34) Units/L ALT 8 (0-55) Units/L Alkaline Phosphatase 109 (38-126) Units/L Albumin 1.4 L (3.5-5.0) g/dL - ABG Interpretation ABG results: PT/INR, D-dimer PT 14.1 Seconds (9.4-12.1) H 09/12/17 03:58 - VTE Documentation of Mechanical Device: Intermittent pneumatic compression device Consult Discharge Plan - Plan Referrals: Aureliano Horton MD [Primary Care Provider] -
[2017-09-14] MEDS: cloNIDine HCl 0.1 MG TABLET PO SCH ×2 (11:52→20:47)
--- NOTE | 2017-09-14 12:09 | Orthopedic Consult Note ---
Date of Encounter: 09/14/17 Time of Encounter: 12:07 Assessment and Plan (1) Proximal humerus fracture Current Visit: Yes Status: Acute I did discuss the diagnosis in detail the patient. She is doing as expected after left proximal humerus open reduction and internal fixation. There is no concern for left septic shoulder. My recommendation at this point is continued therapy with nonweightbearing to the left upper extremity and pendulum swings of the shoulder. Follow-up with Dr. Gil as an outpatient upon discharge. I will be available for reconsultation if needed for any new or worsening concerns. Qualifiers: Qualified Code(s): S42.201S - Unspecified fracture of upper end of right humerus, sequela History of Present Illness HPI: Ms. Nur is a 72 year old female admitted to the hospitalist for E. Coli sepsis. Of note back on August 28 she had a left proximal humerus open reduction and internal fixation by my partner Dr. Gil. The hospitalist asked me to evaluate the patient to rule out a septic shoulder. My evaluation the patient is complaining of isolated pain to the tailbone mainly. She does have left shoulder pain however this has been present since the surgery and is not any worse. No new injuries regarding the left shoulder. No numbness, tingling , or any other associated signs or symptoms left upper extremity. Pain is worse with movement of the shoulder better with rest. No other modifying factors. Past Med Surg Social Fam HX - Past Medical History Medical history: cardiomyopathy, COPD, coronary artery disease, diabetes, GERD, GI bleed, hyperlipidemia, hypertension, myocardial infarction, peripheral artery disease, renal disease Psychiatric history: depression - Past Surgical History Surgical History: angioplasty/stent, appendectomy, hysterectomy, orthopedic, other - Social History Smoking Status: Current every day smoker Packs per day: 1 PPD Smokeless Tobacco Status: No Alcohol use: none Drug use: none - Family History Brother Race: Family Member Ethnicity: Non- Living Status: Age at : 52 Cause of : Cancer Hx Family Cancer: Yes Father Adopted: No Race: Family Member Ethnicity: Non- Living Status: Age at : 77 Cause of : Lung cancer Hx Family Cardiac Disorders: Yes (CAD, SC) Hx Family Respiratory Disorders: Yes Hx Family Cancer: Yes (Lung) Hx Family GI Disorders: No Hx Family Endocrine Disorder: Yes Hx Family Neuromuscular Disorders: No Hx Family Neurologic Disorders: No Hx Family HEENT Disorders: No Hx Family Autoimmune Disorders: No Mother Adopted: No Race: Family Member Ethnicity: Non- Living Status: Cause of : SC Hx Family Cardiac Disorders: Yes (SC, CAD) Hx Family Respiratory Disorders: Yes Hx Family Cancer: No Hx Family GI Disorders: Yes Hx Family Endocrine Disorder: Yes (Diabetes) Hx Family Neuromuscular Disorders: No Hx Family Neurologic Disorders: No Hx Family HEENT Disorders: No Hx Family Autoimmune Disorders: No Medications and Allergies Albuterol Sulfate [Albuterol Inhaler] 2 puff IH Q4HR PRN 06/15/15 [History] Albuterol Neb [Proventil Neb] 2.5 mg IH Q6H PRN 07/10/17 [History] Atorvastatin [Lipitor] 40 mg PO HS tablet 07/14/17 [Rx] Amlodipine Besylate 10 mg PO DAILY 08/28/17 [History] Bumetanide 0.5 mg PO DAILY 08/28/17 [History] Duloxetine HCl [Cymbalta] 60 mg PO DAILY 08/28/17 [History] Fenofibrate Nanocrystallized [Tricor] 145 mg PO DAILY 08/28/17 [History] Gabapentin [Neurontin] 300 mg PO BID capsule 09/06/17 [Rx] Isosorbide MONOnitrate (24 HR) [Imdur] 120 mg PO DAILY tab.er.24h 09/06/17 [Rx] Metoprolol XL (24 HR) Succ [Toprol Xl] 100 mg PO DAILY tab.er.24h 09/06/17 [Rx] Nitroglycerin 0.4 mg SL Q5MIN PRN tab.subl 09/06/17 [Rx] OxyCODONE Immed Rel [Roxicodone 5 MG] 5 mg PO Q4HR PRN #20 tablet 09/06/17 [Rx] cloNIDine HCl [CloNIDine HCl] 0.2 mg PO Q8H tablet 09/06/17 [Rx] Digoxin [Lanoxin] 0.125 mg PO Q48H 09/11/17 [History] 3 Allergy/AdvReac Type Severity Reaction Status Date / Time Erythromycin Base Allergy Vomiting Verified 08/28/17 13:28 Penicillins [PCN] Allergy Rash Verified 08/28/17 13:28 codeine AdvReac Nausea Verified 09/02/17 09:39 indapamide [From Lozol] AdvReac See Verified 08/28/17 13:28 Comments All Systems Reviewed: A 10-system review of systems was performed and is negative for pertinent findings except as documented above in the HPI. Physical Exam - Constitutional Vitals: Temp Pulse Resp BP Pulse Ox 98.2 F 69 16 186/70 96 09/14/17 11:19 09/14/17 11:19 09/14/17 11:40 09/14/17 11:19 09/14/17 11:40 CONSTITUTIONAL -Vitals reviewed -The patient is well developed, well nourished, well groomed PSYCHIATRIC -Fully alert and oriented -Pleasant mood LEFT UPPER EXTREMITY Incision is healing nicely without any redness swelling or concern for infection. I can gently passively range the shoulder with internal and external rotation without significant pain I can gently passively abduct the shoulder to about 45 degrees without significant pain. I can gently passively range the wrist and elbow without discomfort. The patient can actively flex and extend all digits, extend the thumb, cross the index and long fingers, make an okay sign, and oppose the thumb. The fingertips are all grossly sensate and well-perfused, and the radial artery pulse is 2+. Diagnostic Imaging: I did personally review and interpret x-rays of the left shoulder from a few days ago which showed good position of the hardware and fracture fragments Results - Labs Result Diagrams: 09/14/17 05:47 09/14/17 05:47 Labs: Abnormal lab results WBC 21.1 K/mcL (4.3-11.1) H 09/14/17 05:47 RBC 3.52 M/mcL (3.82-4.97) L 09/14/17 05:47 Hgb 9.5 g/dL (11.5-15.4) L 09/14/17 05:47 Hct 29.9 % (35.3-44.9) L 09/14/17 05:47 MCH 27.0 pg (28.0-33.3) L 09/14/17 05:47 RDW 19.0 % (11.5-14.5) H 09/14/17 05:47 Neutrophils # 18.4 K/mcL (1.6-8.9) H 09/14/17 05:47 Anisocytosis 1+ (Not Present) A 09/12/17 05:07 Sheyla Cells 3+ (Not Present) A 09/12/17 05:07 PT 14.1 Seconds (9.4-12.1) H 09/12/17 03:58 APTT 22.8 Seconds (26.0-36.0) L 09/12/17 03:58 Sodium 134 mEq/L (136-145) L 09/14/17 05:47 Potassium 4.7 mEq/L (3.5-4.5) H 09/14/17 05:47 Carbon Dioxide 15 mEq/L (19-29) L 09/14/17 05:47 BUN 62 mg/dL (7-20) H 09/14/17 05:47 Creatinine 3.87 mg/dL (0.57-1.11) H 09/14/17 05:47 Est GFR ( Amer) 14 (> 60) L 09/14/17 05:47 Est GFR (Non-Af Amer) 11 (> 60) L 09/14/17 05:47 POC Glucose 135 (58-89) H 09/13/17 20:25 Calcium 7.7 mg/dL (8.6-10.8) L 09/14/17 05:47 Direct Bilirubin 0.6 mg/dL (0.0-0.5) H 09/10/17 19:40 Ammonia 12 mcmol/L (18-72) L 09/10/17 19:40 Troponin I 0.04 ng/mL (0-0.03) H* 09/11/17 16:05 Serum Total Protein 5.3 g/dL (6.0-8.3) L 09/14/17 05:47 Albumin 1.4 g/dL (3.5-5.0) L 09/14/17 05:47 Globulin 3.9 g/dL (2.4-3.5) H 09/14/17 05:47 Albumin/Globulin Ratio 0.4 (1.1-2.2) L 09/14/17 05:47 HDL Cholesterol 10 mg/dL (40-59) L 09/12/17 03:58 Cholesterol/HDL Ratio 10.3 (0-4.9) H 09/12/17 03:58 Urine Clarity Cloudy (Clear) A 09/12/17 16:30 Ur Specific Marvin 1.009 (1.010-1.025) L 09/12/17 16:30 Urine Protein 100 mg/dL (Neg-Trace) H 09/12/17 16:30 Urine Blood Large (Negative) H 09/12/17 16:30 Ur Leukocyte Esterase Large (Negative) H 09/12/17 16:30 Urine Microscopic RBC 5-15 per hpf (0-3) H 09/12/17 16:30 Urine Microscopic WBC TNTC per hpf (0-3) H 09/12/17 16:30 Urine Bacteria Moderate per hpf (None-Few) H 09/12/17 16:30 Ur Culture Indicated? YES (NO) A 09/10/17 20:00 Protein/Creatinin Ratio 7.45 mg/mg (0-0.20) H 09/12/17 16:30 Urine Total Protein 216 mg/dL (1-14) H 09/12/17 16:30 Enterobacteriac sp PCR DETECTED (Not Detect) A 09/10/17 20:31 E. coli (PCR) DETECTED (Not Detect) A 09/10/17 20:31 H & H 09/14/17 Range/Units 05:47 Hgb 9.5 L (11.5-15.4) g/dL Hct 29.9 L (35.3-44.9) % All other labs normal. Consult Discharge Plan - Plan Referrals: Aureliano Horton MD [Primary Care Provider] -
[2017-09-14] MEDS: *HR* Morphine 2 MG/ML SYRINGE IVP PRN (20:53)
[2017-09-15] MEDS: 0.9 % Sodium Chloride 1,000 ML IVC SCH (03:57)
[2017-09-15] MEDS: Ipratropium/Albuterol Neb 3 ML IH SCH ×5 (04:10→21:09)
[2017-09-15 06:42] LABS: Albumin/Globulin Ratio 0.4 (1.1-2.2); Bilirubin,Total 0.6 mg/dL (0.2-1.2); Calcium 7.9 mg/dL (8.6-10.8); Globulin 3.8 g/dL (2.4-3.5); Potassium 4.8 mEq/L (3.5-4.5); Total Protein 5.2 g/dL (6.0-8.3)
[2017-09-15 06:43] LABS: Albumin 1.4 g/dL (3.5-5.0)
[2017-09-15 06:58] LABS: Basophils # 0.1 K/mcL (0.0-0.2); Basophils % 0.3 %; Eosinophils # 0.5 K/mcL (0.0-0.6); Eosinophils % 2.6 %; Hematocrit 30.4 % (35.3-44.9); Hemoglobin 9.7 g/dL (11.5-15.4); Immature Granulocytes % 2.1 % (0-4); Lymphocytes # 0.8 K/mcL (0.6-4.6); Lymphocytes % 4.1 %; Mean Corpuscular HGB Conc 31.9 g/dL (31.6-35.5); Mean Corpuscular Hemoglobin 27.2 pg (28.0-33.3); Mean Corpuscular Volume 85.2 fL (83.0-100.0); Mean Platelet Volume 10.3 fL (9.4-12.4); Monocytes # 1.2 K/mcL (0.0-1.3); Monocytes % 5.8 %; Neutrophils # 16.7 K/mcL (1.6-8.9); Platelet Count 214 K/mcL (140-400); Red Blood Count 3.57 M/mcL (3.82-4.97); Red Cell Distribution Width 19.3 % (11.5-14.5); Segmented Neutrophils % 85.1 %
[2017-09-15] MEDS: amLODIPine 5 MG TABLET PO SCH (07:59)
[2017-09-15] MEDS: *HR* Digoxin 0.125 MG TABLET PO SCH (07:59)
[2017-09-15] MEDS: Pantoprazole 40 MG VIAL IVP SCH (07:59)
[2017-09-15] MEDS: Nicotine 14 MG PATCH.TD24 TD SCH (07:59)
[2017-09-15] MEDS: Aspirin Enteric Coated 81 MG Tablet PO SCH (07:59)
[2017-09-15] MEDS: cloNIDine HCl 0.1 MG TABLET PO SCH ×2 (07:59→20:59)
[2017-09-15] MEDS: Metoprolol XL (24 HR) Succ 50 MG TAB.ER.24H PO SCH (07:59)
[2017-09-15] MEDS: Isosorbide MONOnitrate (24 HR) 60 MG TAB.ER.24H PO SCH (07:59)
[2017-09-15] MEDS: Insulin LISPRO 300 UNITS/3 ML VIAL SQ SCH ×4 (08:00→20:59)
--- NOTE | 2017-09-15 08:07 | Internal Med Progress Note ---
Date of Encounter: 09/15/17 Time of Encounter: 08:04 - Assessment and plan (1) Sepsis Current Visit: Yes Status: Acute Assessment and plan: Due to ESBL Escherichia coli UTI. Continue ertapenem renally dosed. Patient is more somnolent today with severe shoulder pain. He has been transferred on 09/13 to the second floor to as she has become requiring more frequent monitoring. Patient also has a pneumonia as seen on chest x-ray. Linezolid has been added to cover for MRSA, since vancomycin renal toxicity profile limits its use. Not likely shoulder joint infection involvement. Qualifiers: Sepsis type: sepsis due to unspecified organism Qualified Code(s): A41.9 - Sepsis, unspecified organism (2) Altered mental status Current Visit: Yes Status: Acute Assessment and plan: Acute AMS as reported by staff at [facility] for two days prior to admission. Likely from UTI and pneumonia. She has recent admission for hypoglycemia and also opiate overdose from use of oxycodone for pain. She possibly aspirated during that time. Pt. is currently A&O x1 (person only). Falls/safety precautions. Will hold pts. current pain medications d/t AMS and administer Tylenol 650 mg PRN for pain to assess for AMS improvement. Aspiration precautions w/meals d/t AMS. Monitor pt. closely for signs of neurological decline. Pt. is at high risk for further morbidity and infection based on current sx, UTI, pneumonia, hx, and risk factors. 09/13 ESBL sensitivies have returned today: Multiple resistance. Will start patient on renally dosed Ertapenem 500 mg daily and discontinue other agents. She is still somnolent today AAO 1 Qualifiers: Altered mental status type: delirium Qualified Code(s): R41.0 - Disorientation, unspecified (3) Heart failure with preserved left ventricular function (HFpEF) Current Visit: Yes Status: Acute Assessment and plan: She has history of heart failure exacerbation with acute kidney injury on 2015 and required ICU admission. IV fluids were held yesterday evening as patient is becoming more fluid overloaded. Ejection fraction was 50-55% in 2016. (4) UTI (urinary tract infection) Current Visit: Yes Status: Acute Assessment and plan: Initial U/A indicative for UTI. Urine culture ordered. Pt. reports urinary frequency and urgency. IVPB cefepime 1,000 mg Q12, vancomycin with pharmacy dosing, and Levaquin 500 mg every 48 for infection coverage w/renal dosing d/t current renal function. ESBL sensitivies have returned 09/13: Multiple resistance. Continue renally dosed Ertapenem 500 mg daily and discontinue other agents. Qualifiers: Urinary tract infection type: acute cystitis Hematuria presence: without hematuria Qualified Code(s): N30.00 - Acute cystitis without hematuria (5) HCAP (healthcare-associated pneumonia) Current Visit: Yes Status: Acute Assessment and plan: 1-View CXR today shows bilateral lower lung airspace disease with some indistinctness pulmonary vasculature suggestive of pulmonary edema. Pneumonia could have this appearance as well. Pt. is resident at [facility] for rehabilitation r/t left shoulder surgery. She reports cough w/green sputum production. Blood cultures 2 ordered. Sputum culture ordered. Strep pneumoniae and legionella urine antigens ordered. She was on cefepime, vancomycin, and Levaquin on admission. Based on sensitivities 09/13 she was switched to ertapenem. She was found to be positive for ESBL in urine and blood culture which was resistent to multiple agents, activities resulted on . She will be started on renally dosed ertapenem, which should cover for patient's UTI as well as ammonia. The linezolid has been added to cover MRSA. (6) Acute kidney injury superimposed on chronic kidney disease Current Visit: No Status: Acute Assessment and plan: Acute kidney injury superimposed on CKD with admission creatinine of 2.87 ( baseline is 1. 5-2.0) Continues to worsen due to ESBL UTI sepsis. A renal ultrasound was negative. Culture 09/13 sensitivities indicate she is inadequately covered with Vanc/Cefepime/Levequin. These agents were discontinued and she was be started on ertapenem. She has history of heart failure exacerbation with acute kidney injury on 02/2016 and required ICU admission. IV fluids were held yesterday evening as patient is becoming more fluid overloaded. Nephrology on board and recommendations are appreciated. (7) CAD (coronary artery disease) Current Visit: Yes Status: Chronic Qualifiers: Coronary Disease-Associated Artery/Lesion type: [place] artery [place] vs. transplanted heart: [place]ana heart Associated angina: without angina Qualified Code(s): I25.10 - Atherosclerotic heart disease of [place] coronary artery without angina pectoris (8) CKD (chronic kidney disease), stage IV Current Visit: No Status: Chronic (9) DM (diabetes mellitus), type 2 Current Visit: No Status: Chronic Qualifiers: Diabetes mellitus complication status: with kidney complications Diabetes mellitus complication detail: with chronic kidney disease Diabetes mellitus half-way insulin use: with long distance operator use Chronic kidney disease stage: stage 3 (moderate) Qualified Code(s): E11.22 - Type 2 diabetes mellitus with diabetic chronic kidney disease; N18.3 - Chronic kidney disease, stage 3 ( moderate); Z79.4 - meterman (current) use of insulin (10) GERD (gastroesophageal reflux disease) Current Visit: Yes Status: Chronic Qualifiers: Esophagitis presence: esophagitis presence not specified Qualified Code(s) : K21.9 - Gastro-esophageal reflux disease without esophagitis (11) HLD (hyperlipidemia) Current Visit: Yes Status: Chronic Qualifiers: Hyperlipidemia type: pure hypercholesterolemia Qualified Code(s): E78.00 - Pure hypercholesterolemia, unspecified; E78.0 - Pure hypercholesterolemia (12) HTN (hypertension) Current Visit: Yes Status: Chronic Qualifiers: Hypertension type: essential hypertension Qualified Code(s): I10 - Essential (primary) hypertension (13) Hyperkalemia Current Visit: Yes Status: Acute (14) Hypertension Current Visit: No Status: Chronic Qualifiers: Hypertension type: essential hypertension Qualified Code(s): I10 - Essential (primary) hypertension (15) DVT prophylaxis Current Visit: Yes Status: Acute (16) Left shoulder pain Current Visit: Yes Status: Acute Qualifiers: Chronicity: acute Qualified Code(s): M25.512 - Pain in left shoulder (17) S/P shoulder replacement Current Visit: Yes Status: Acute Qualifiers: Laterality: left Qualified Code(s): Z96.612 - Presence of left artificial shoulder joint - Subjective Interval history: Patient presented from senior living with altered mental status, likely from UTI and HAP. She was recently admitted on 09/03 for altered mental status from hypoglycemia and possibly opiate overdose. She also has a recent history of left shoulder surgery. During this admission She was found to have LOUANN on CKD. Her baseline was most recently 1.49 with GFR of 34 from her last hospital discharge. This admission she was placed on renally dosed Cefepime, Levaquin, and Vancomycin. She has hyponatremia that is improving with IV fluids. Patient has been somnolent but responds to commands, AAOx1. She does not have any issues with breathing. She has had bladder fullness on 09/12 and so [place] catheter was placed. Renal function did not improve with judicious IVF hydration nor antibiotics. 09/13 lab informed that blood positive for ESBL E coli. She is only received 1 dose of ertapenem to date. Orthopedic surgery was consulted on 09/14 to evaluate if Left shoulder joint was infected, and it does not seem to be infected. No function continues to decline. Patient only had 200 mL overnight. She was also in severe pain and required 2 mg morphine. - Constitutional Vitals: Temp Pulse Resp BP Pulse Ox 97.4 F L 62 18 185/69 95 09/15/17 07:04 09/15/17 07:04 09/15/17 07:04 09/15/17 07:04 09/15/17 07:04 General appearance: Present: A&O X 1, mild distress, underweight, answers questions appropriately (With repeated attempts. Is unsure of some information.) Exam: CVS: Regular rhythm Lungs: diminished sounds at bases. Left lower lung exam is limited because of patient's injured shoulder and position. Apices are clear. No rales or rhonchi. Abdomen: Nontender/nondistended : Urine draining from [place], not as thick and purulent as yesterday were clear and yellow but still cloudy. Extremities: 2+ bipedal pitting edema Internal Medicine: Result - Labs CBC & Chem 7: 09/15/17 06:23 09/15/17 06:23 Labs: Short CBC 09/15/17 Range/Units 06:23 WBC 19.7 H (4.3-11.1) K/mcL Hgb 9.7 L (11.5-15.4) g/dL Hct 30.4 L (35.3-44.9) % Plt Count 214 (140-400) K/mcL Neutrophils # 16.7 H (1.6-8.9) K/mcL BMP 09/15/17 06:23 Sodium 134 L Potassium 4.8 H Chloride 110 H Carbon Dioxide 14 L BUN 64 H Creatinine 4.02 H Glucose 116 H Calcium 7.9 L Liver Function 09/15/17 Range/Units 06:23 Total Bilirubin 0.6 (0.2-1.2) mg/dL AST 12 (5-34) Units/L ALT 8 (0-55) Units/L Alkaline Phosphatase 101 (38-126) Units/L Albumin 1.4 L (3.5-5.0) g/dL - ABG Interpretation ABG results: PT/INR, D-dimer PT 14.1 Seconds (9.4-12.1) H 09/12/17 03:58 - VTE Documentation of Mechanical Device: Intermittent pneumatic compression device Consult Discharge Plan - Plan Referrals: Aureliano Horton MD [Primary Care Provider] -
--- NOTE | 2017-09-15 08:14 | Nephrology Progress Note ---
Date of Encounter: 09/15/17 Time of Encounter: 08:00 Subjective Interval history: A/P- LOUANN in setting of sepsis, UTI/Ecoli superimposed on CKD 3-4. Renal fct somewhat worse today creat 4.02. Documented urine output 600cc. Recommend continuing IV fluids. Recommend IV hypertension medication if unable to take oral meds. Avoid nephrotoxins. Will continue to monitor. Patient alert, garbled speech. Nursing at bedside, states unable to get patient to take medication and is not sure received oral medication yesterday. Nursing states swallow eval done yesterday and dysphagia is cognitive related. Also states IV fluids stopped last night due to elevated BP and increased swelling. Patient does have mild generalized edema with significant dependent edema in left had which is in supportive device from older injury. Nursing advised to elevate arm. Objective - Vital Signs Vital signs: Vital Signs Temp Pulse Resp BP Pulse Ox 09/15/17 07:04 97.4 F L 62 18 185/69 95 09/15/17 04:11 19 97 09/15/17 03:00 97.6 F 64 18 179/63 99 09/14/17 23:21 16 96 09/14/17 23:00 97.4 F L 67 18 182/64 98 09/14/17 20:44 174/79 09/14/17 19:00 97.4 F L 71 18 215/75 96 09/14/17 16:21 97.3 F L 69 20 149/79 97 09/14/17 16:02 20 97 09/14/17 13:54 97.2 F L 72 20 171/63 96 09/14/17 11:40 16 96 09/14/17 11:19 98.2 F 69 17 186/70 95 09/14/17 09:01 216/89 09/14/17 08:40 97.8 F 79 19 234/69 93 Intake and Output 09/14/17 09/15/17 09/15/17 23:59 07:59 15:59 Intake Total 500 / 500 Output Total 400 / 400 Balance 100 / 100 Intake: IV Fluids 500 / 500 0.9 % Sodium Chloride 1,000 ML 200 / 200 @ 100 mls/hr IVC .Q10H [facility] Rx#: [id number] Zyvox Premix 600mg/300mL 600 mg 300 / 300 In 300 ml @ 150 mls/hr IVPB Q12HR [facility] Rx#:[id number] Output: Catheter 400 / 400 Other: Weight 70.896 kg Blood Glucose* 118 123 Patient Weight 09/15/17 23:59 Weight 70.896 kg - General Appearance General appearance: Present: chronically ill, frail EENT: Present: mucous membranes moist Additional Comments: harsh breath sounds Cardiology: Present: edema, regular rate, regular rhythm Additional Comments: mild generalized edema Gastrointestinal: Present: normoactive bowel sounds, no tenderness Integumentary: Present: warm and dry - Lab 09/15/17 06:23 09/15/17 06:23 Most recent lab results Calcium 7.9 mg/dL (8.6-10.8) L 09/15/17 06:23 Magnesium 1.8 mg/dL (1.6-2.6) 09/14/17 05:47 Urine Creatinine 29 mg/dL 09/12/17 16:30 Urine Total Protein 216 mg/dL (1-14) H 09/12/17 16:30 - VTE Documentation of Mechanical Device: Intermittent pneumatic compression device Consult Discharge Plan - Plan Referrals: Aureliano Horton MD [Primary Care Provider] -
[2017-09-15] MEDS ORDERED: 0.9 % Sodium Chloride 1,000 ML IVC SCH (08:30)
[2017-09-15] MEDS: *HR* Morphine 2 MG/ML SYRINGE IVP PRN (16:16)
[2017-09-16] MEDS: Ipratropium/Albuterol Neb 3 ML IH SCH ×7 (00:09→23:35)
[2017-09-16] MEDS: *HR* Morphine 2 MG/ML SYRINGE IVP PRN (00:32)
[2017-09-16 03:18] LABS: Basophils # 0.1 K/mcL (0.0-0.2); Basophils % 0.3 %; Eosinophils % 0.2 %; Hematocrit 32.3 % (35.3-44.9); Hemoglobin 10.2 g/dL (11.5-15.4); Lymphocytes # 0.7 K/mcL (0.6-4.6); Lymphocytes % 3.8 %; Mean Corpuscular HGB Conc 31.6 g/dL (31.6-35.5); Mean Corpuscular Hemoglobin 27.1 pg (28.0-33.3); Mean Corpuscular Volume 85.9 fL (83.0-100.0); Mean Platelet Volume 10.4 fL (9.4-12.4); Monocytes # 0.8 K/mcL (0.0-1.3); Monocytes % 4.6 %; Platelet Count 240 K/mcL (140-400); Red Blood Count 3.76 M/mcL (3.82-4.97); Red Cell Distribution Width 19.4 % (11.5-14.5); Segmented Neutrophils % 88.1 %
[2017-09-16 03:33] LABS: Albumin/Globulin Ratio 0.4 (1.1-2.2); Bilirubin,Total 0.6 mg/dL (0.2-1.2); Calcium 8.1 mg/dL (8.6-10.8); Globulin 3.9 g/dL (2.4-3.5); Potassium 5.3 mEq/L (3.5-4.5); Total Protein 5.5 g/dL (6.0-8.3)
[2017-09-16 03:35] LABS: Albumin 1.6 g/dL (3.5-5.0)
--- NOTE | 2017-09-16 08:16 | Nephrology Progress Note ---
Date of Encounter: 09/16/17 Time of Encounter: 08:14 - Assessment and Plan (1) LOUANN (acute kidney injury) Current Visit: Yes Status: Acute Patient has acute kidney injury superimposed on stage III to stage IV chronic kidney disease in the setting of bacteremia or urinary tract infection and possible pneumonia. Renal function continues to slowly worsen. She has mild hyperkalemia as well as metabolic acidosis. I am going to change her IV fluids to include some bicarbonate replacement. I am going to give her 1 dose of Lasix to try and increase her urine output. If her renal function continues to worsen she may require dialysis within the next 24-48 hours. I did discuss this with the patient's daughter. (2) Chronic kidney disease, stage III (moderate) Current Visit: Yes Status: Acute (3) UTI (urinary tract infection) Current Visit: Yes Status: Acute Qualifiers: Urinary tract infection type: site unspecified Hematuria presence: with hematuria Qualified Code(s): N39.0 - Urinary tract infection, site not specified; R31.9 - Hematuria, unspecified; R31.9 - Hematuria, unspecified (4) Bacteremia Current Visit: Yes Status: Acute (5) S/P shoulder replacement Current Visit: Yes Status: Acute Qualifiers: Laterality: left Qualified Code(s): Z96.612 - Presence of left artificial shoulder joint Subjective Interval history: The patient remains confused. She is unable to give any history. Renal function continues to slowly worsen. There is no urine output recorded for yesterday. A [place] catheter is in place with about 200 mL of urine in the collection bag. Vital signs appear stable. White count remains elevated. Objective - Vital Signs Vital signs: Vital Signs Temp Pulse Resp BP Pulse Ox 09/16/17 07:59 16 94 09/16/17 07:34 97.6 F 84 17 128/80 94 09/16/17 04:58 18 96 09/16/17 04:47 96.8 F L 74 18 163/86 96 09/16/17 00:09 18 93 09/15/17 23:29 97.5 F L 82 18 161/66 93 09/15/17 21:09 17 97 09/15/17 19:28 97.4 F L 73 17 174/62 96 09/15/17 15:55 97.6 F 69 18 192/69 95 09/15/17 11:41 18 99 09/15/17 11:22 97.3 F L 62 18 182/55 99 09/15/17 08:27 18 185/69 98 Intake and Output 09/15/17 09/16/17 09/16/17 23:59 07:59 15:59 Intake Total 300 / 300 Balance 300 / 300 Intake: IV Fluids 300 / 300 Zyvox Premix 600mg/300mL 600 mg 300 / 300 In 300 ml @ 150 mls/hr IVPB Q12HR [facility] Rx#:[id number] Other: Weight 70.398 kg Blood Glucose* 160 176 Patient Weight 09/16/17 23:59 Weight 70.398 kg - General Appearance Exam: Patient is confused. Lungs bilateral rhonchi and coarse breath sounds. Heart regular rate and rhythm. Abdomen is benign. Lower extremities show 1+ edema. - Lab 09/16/17 02:44 09/16/17 02:44 Most recent lab results Calcium 8.1 mg/dL (8.6-10.8) L 09/16/17 02:44 Magnesium 1.8 mg/dL (1.6-2.6) 09/14/17 05:47 Urine Creatinine 29 mg/dL 09/12/17 16:30 Urine Total Protein 216 mg/dL (1-14) H 09/12/17 16:30 - VTE Documentation of Mechanical Device: Intermittent pneumatic compression device Consult Discharge Plan - Plan Referrals: Aureliano Horton MD [Primary Care Provider] -
[2017-09-16] MEDS ORDERED: Furosemide 40 MG/4 ML VIAL IVP ONE (08:19)
[2017-09-16] MEDS: amLODIPine 5 MG TABLET PO SCH (09:11)
[2017-09-16] MEDS: Metoprolol XL (24 HR) Succ 50 MG TAB.ER.24H PO SCH (09:11)
[2017-09-16] MEDS: Aspirin Enteric Coated 81 MG Tablet PO SCH (09:11)
[2017-09-16] MEDS: Isosorbide MONOnitrate (24 HR) 60 MG TAB.ER.24H PO SCH (09:11)
[2017-09-16] MEDS: cloNIDine HCl 0.1 MG TABLET PO SCH ×2 (09:11→21:59)
[2017-09-16] MEDS: Nicotine 14 MG PATCH.TD24 TD SCH (09:14)
[2017-09-16] MEDS: Pantoprazole 40 MG VIAL IVP SCH (09:14)
[2017-09-16] MEDS: Insulin LISPRO 300 UNITS/3 ML VIAL SQ SCH ×4 (09:17→22:00)
[2017-09-16] MEDS: SODIUM BICARBONATE IVC SCH (09:20)
[2017-09-16] MEDS: NACL IVC SCH (09:20)
[2017-09-16] MEDS: D5 IVC SCH (09:20)
[2017-09-16] MEDS ORDERED: Ertapenem 1,000 MG in Water for inj. (sterile) 10 ML IVP ONE (10:57)
[2017-09-16] MEDS ORDERED: *HR* OxyCODONE Immed Rel 5 MG TABLET PO PRN ×2 (10:58)
--- NOTE | 2017-09-16 21:16 | Internal Med Progress Note ---
Date of Encounter: 09/16/17 Time of Encounter: 09:12 - Assessment and plan (1) Sepsis Current Visit: Yes Status: Acute Assessment and plan: Due to ESBL Escherichia coli UTI. Also has pneumonia, covered for HAP. Continue Invanz and Zyvox due to renal function. Qualifiers: Sepsis type: sepsis due to unspecified organism Qualified Code(s): A41.9 - Sepsis, unspecified organism (2) Altered mental status Current Visit: Yes Status: Acute Assessment and plan: Acute AMS as reported by staff at [facility] [place] for two days prior to admission. Likely from UTI and pneumonia. She has recent admission for hypoglycemia and also opiate overdose from use of oxycodone for pain. She possibly aspirated during that time. Pt. is currently A&O x1 (person only). Falls/safety precautions. Will hold pts. current pain medications d/t AMS and administer Tylenol 650 mg PRN for pain to assess for AMS improvement. Aspiration precautions w/meals d/t AMS. Monitor pt. closely for signs of neurological decline. Pt. is at high risk for further morbidity and infection based on current sx, UTI, pneumonia, hx, and risk factors. 09/13 ESBL sensitivies have returned today: Multiple resistance. Will start patient on renally dosed Ertapenem 500 mg daily and discontinue other agents. She is still somnolent today AAO 0. Qualifiers: Altered mental status type: unspecified Qualified Code(s): R41.82 - Altered mental status, unspecified (3) Heart failure with preserved left ventricular function (HFpEF) Current Visit: Yes Status: Acute Assessment and plan: She has history of heart failure exacerbation with acute kidney injury on 2015 and required ICU admission. Ejection fraction was 50-55% in 04/2017. IV fluids are given judiciously. (4) UTI (urinary tract infection) Current Visit: Yes Status: Acute Assessment and plan: ESBL resistant to multiple agents. Based on sensitivities and renal function, patient is on Invanz started on 09/13. Qualifiers: Urinary tract infection type: acute cystitis Hematuria presence: without hematuria Qualified Code(s): N30.00 - Acute cystitis without hematuria (5) HCAP (healthcare-associated pneumonia) Current Visit: Yes Status: Acute Assessment and plan: 1-View CXR today shows bilateral lower lung airspace disease with some indistinctness pulmonary vasculature suggestive of pulmonary edema. Pneumonia could have this appearance as well. Pt. is resident at [facility] [place] for rehabilitation r/t left shoulder surgery. She reports cough w/green sputum production. Blood cultures 2 ordered. Sputum culture ordered. Strep pneumoniae and legionella urine antigens ordered. She was on cefepime, vancomycin, and Levaquin on admission. Based on sensitivities 09/13 she was switched to ertapenem. She was found to be positive for ESBL in urine and blood culture which was resistant to multiple agents, activities resulted on . She will be started on renally dosed ertapenem, which should cover for patient's UTI as well as pneumonia. The linezolid has been added to cover MRSA. (6) Acute kidney injury superimposed on chronic kidney disease Current Visit: No Status: Acute Assessment and plan: Acute kidney injury superimposed on CKD with admission creatinine of 2.87 ( baseline is 1. 5-2.0) Continues to worsen due to ESBL UTI sepsis. A renal ultrasound was negative. Culture 09/13 sensitivities indicate she is inadequately covered with Vanc/Cefepime/Levequin. These agents were discontinued and she was be started on ertapenem. She has history of heart failure exacerbation with acute kidney injury on 02/2016 and required ICU admission. IV fluids judiciously given, currently D5 1/2NS with sodium bicarb. Nephrology on board and recommendations are appreciated. (7) CAD (coronary artery disease) Current Visit: Yes Status: Chronic Assessment and plan: Continuous cardiac telemetry. Continue patient's amlodipine, metoprolol, Imdur , and Lipitor. Add 81 mg aspirin therapy daily. Qualifiers: Coronary Disease-Associated Artery/Lesion type: [place] artery [place] vs. transplanted heart: [place] heart Associated angina: without angina Qualified Code(s): I25.10 - Atherosclerotic heart disease of [place] coronary artery without angina pectoris (8) CKD (chronic kidney disease), stage IV Current Visit: No Status: Chronic (9) DM (diabetes mellitus), type 2 Current Visit: No Status: Chronic Assessment and plan: Pt. does not currently take oral anti-hyperglycemics or use insulin. BG checks ACHS. Add low-dose correction insulin sliding scale PRN w/hypoglycemic protocol. Qualifiers: Diabetes mellitus complication status: with kidney complications Diabetes mellitus complication detail: with chronic kidney disease Diabetes mellitus termite treater helper insulin use: with termite treater helper use Chronic kidney disease stage: stage 3 (moderate) Qualified Code(s): E11.22 - Type 2 diabetes mellitus with diabetic chronic kidney disease; N18.3 - Chronic kidney disease, stage 3 ( moderate); Z79.4 - longterm (current) use of insulin (10) GERD (gastroesophageal reflux disease) Current Visit: Yes Status: Chronic Assessment and plan: Protonix 40 mg IVP daily. Qualifiers: Esophagitis presence: esophagitis presence not specified Qualified Code(s) : K21.9 - Gastro-esophageal reflux disease without esophagitis (11) HLD (hyperlipidemia) Current Visit: Yes Status: Chronic Assessment and plan: Continue pts. Lipitor. Hold Tricor d/t current renal function. Qualifiers: Hyperlipidemia type: pure hypercholesterolemia Qualified Code(s): E78.00 - Pure hypercholesterolemia, unspecified; E78.0 - Pure hypercholesterolemia (12) HTN (hypertension) Current Visit: Yes Status: Chronic Assessment and plan: Continue amlodipine, metoprolol, Imdur. Currently not taking PO so gets hypertensive. Hydralazine IV when necessary systolic blood pressure greater than 160. Qualifiers: Hypertension type: essential hypertension Qualified Code(s): I10 - Essential (primary) hypertension (13) Hyperkalemia Current Visit: Yes Status: Acute Assessment and plan: Secondary to LOUANN (14) Hypertension Current Visit: No Status: Chronic Qualifiers: Hypertension type: essential hypertension Qualified Code(s): I10 - Essential (primary) hypertension (15) DVT prophylaxis Current Visit: Yes Status: Acute Assessment and plan: Bilateral SCDs on LEs for DVT prophylaxis d/t current anemia and hx of GI bleed. Monitor pt. for signs of unusual bleeding. (16) Left shoulder pain Current Visit: Yes Status: Acute Qualifiers: Chronicity: acute Qualified Code(s): M25.512 - Pain in left shoulder (17) S/P shoulder replacement Current Visit: Yes Status: Acute Qualifiers: Laterality: left Qualified Code(s): Z96.612 - Presence of left artificial shoulder joint - Subjective Interval history: Patient presented from [facility] with altered mental status, likely from UTI and HAP. She was recently admitted on 09/03 for altered mental status from hypoglycemia and possibly opiate overdose. She also has a recent history of left shoulder surgery. During this admission She was found to have LOUANN on CKD. Her baseline was most recently 1.49 with GFR of 34 from her last hospital discharge. This admission she was placed on renally dosed Cefepime, Levaquin, and Vancomycin. She has hyponatremia that is improving with IV fluids. Patient has been somnolent but responds to commands, AAOx1. She does not have any issues with breathing. She has had bladder fullness on 09/12 and so Matamoros catheter was placed. Renal function did not improve with judicious IVF hydration nor antibiotics. 09/13 lab informed that blood positive for ESBL E coli. She is only received 1 dose of ertapenem to date. Orthopedic surgery was consulted on 09/14 to evaluate if Left shoulder joint was infected, and it does not seem to be infected. No function continues to decline. Patient only had 200 mL overnight. Patient is altered, occasionally follows commands. - Constitutional Vitals: Temp Pulse Resp BP Pulse Ox 98.1 F 89 16 127/71 90 09/16/17 21:03 09/16/17 21:03 09/16/17 21:03 09/16/17 21:03 09/16/17 21:03 General appearance: Present: A&O X 0, mild distress, underweight - Respiratory Respiratory exam: Present: decreased breath sounds, rales - Cardiovascular Cardiovascular exam: Present: RRR, +S1, +S2. Absent: diastolic murmur, gallop, rubs, systolic murmur - GI/Abdominal GI/Abdominal exam: Present: normal bowel sounds, soft, no peritoneal signs. Absent: distended, tenderness - Extremities Exam Extremities exam: Present: pedal edema (improved since yesterday) Additional comments: left shoulder post surgical incision clean and dry. - Psychiatric Psychiatric exam: Present: agitated Internal Medicine: Result - Labs CBC & Chem 7: 09/16/17 02:44 09/16/17 02:44 Labs: Short CBC 09/16/17 Range/Units 02:44 WBC 18.1 H (4.3-11.1) K/mcL Hgb 10.2 L (11.5-15.4) g/dL Hct 32.3 L (35.3-44.9) % Plt Count 240 (140-400) K/mcL Neutrophils # 16.0 H (1.6-8.9) K/mcL BMP 09/16/17 02:44 Sodium 133 L Potassium 5.3 H Chloride 109 Carbon Dioxide 13 L BUN 69 H Creatinine 4.35 H Glucose 126 H Calcium 8.1 L Liver Function 09/16/17 Range/Units 02:44 Total Bilirubin 0.6 (0.2-1.2) mg/dL AST 16 (5-34) Units/L ALT 8 (0-55) Units/L Alkaline Phosphatase 105 (38-126) Units/L Albumin 1.6 L (3.5-5.0) g/dL - ABG Interpretation ABG results: PT/INR, D-dimer PT 14.1 Seconds (9.4-12.1) H 09/12/17 03:58 - Impressions Impressions Chest X-Ray 09/16/17 08:20 IMPRESSION: Constellation of findings most suggestive of CHF. D/ / Refugio Mars MD / Refugio Mars MD Interpreting Provider: Refugio Mars MD - VTE Documentation of Mechanical Device: Intermittent pneumatic compression device Consult Discharge Plan - Plan Referrals: Aureliano Horton MD [Primary Care Provider] -
[2017-09-17] MEDS: NACL IVC SCH ×2 (01:43→17:50)
[2017-09-17] MEDS: D5 IVC SCH ×2 (01:43→17:50)
[2017-09-17] MEDS: SODIUM BICARBONATE IVC SCH ×2 (01:43→17:50)
[2017-09-17] MEDS: Ipratropium/Albuterol Neb 3 ML IH SCH ×6 (03:54→23:44)
[2017-09-17 06:33] LABS: Albumin 1.7 g/dL (3.5-5.0); Albumin/Globulin Ratio 0.5 (1.1-2.2); Bilirubin,Total 0.5 mg/dL (0.2-1.2); Calcium 8.3 mg/dL (8.6-10.8); Globulin 3.7 g/dL (2.4-3.5); Potassium 5.1 mEq/L (3.5-4.5); Total Protein 5.4 g/dL (6.0-8.3)
--- NOTE | 2017-09-17 07:51 | Nephrology Consult Note ---
Date of Encounter: 09/17/17 Time of Encounter: 07:48 Assessment and Plan (1) LOUANN (acute kidney injury) Current Visit: Yes Status: Acute (2) Chronic kidney disease, stage III (moderate) Current Visit: Yes Status: Acute (3) UTI (urinary tract infection) Current Visit: Yes Status: Acute Qualifiers: Urinary tract infection type: site unspecified Hematuria presence: with hematuria Qualified Code(s): N39.0 - Urinary tract infection, site not specified; R31.9 - Hematuria, unspecified; R31.9 - Hematuria, unspecified (4) Bacteremia Current Visit: Yes Status: Acute (5) S/P shoulder replacement Current Visit: Yes Status: Acute Qualifiers: Laterality: left Qualified Code(s): Z96.612 - Presence of left artificial shoulder joint History of Present Illness - History of Present Illness This is a 72-year-old [facility] complaints of weakness shortness of breath and coughing. Patient was noted to have a serum creatinine of around 1.9 on admission and has remained at that level during her hospital stay. She is being treated for what is thought to be diastolic congestive heart failure. She is currently undergoing diuresis. Her serum creatinine has remained stable. Patient is somewhat of a poor historian. She denies any previous history of renal disease. She says she has had issues with urinary tract infections in the past but otherwise no significant renal history. She has had diabetes for at least 2 years if not longer. The medical record indicates she has a history of COPD as well as A. fib. There is also history of AICD placement although her current left ventricular ejection fraction is in the normal range. Medical record also indicates she was hospitalized recently for anemia of uncertain etiology and did undergo transfusion. Next Patient reports she continues to feel weak continues to have a cough and continues to have shortness of breath. She denies any chest pain. Evaluation so far includes a renal ultrasound which shows normal size kidneys and no hydronephrosis. There are some right-sided renal cysts. She underwent an abdominal CT scan which showed a right pleural effusion. Lobular contour of the liver suggested possible cirrhosis. CT scan also was questioning a potential left renal lesion. Serum creatinine on September 09 listed as 1.3-100 Sep 11 is 1.07. There is no urinalysis available. Patient does have a Matamoros catheter in place. Patient is being treated for congestive heart failure. Echocardiogram shows left ventricular ejection fraction 55-60%. Mild pulmonary hypertension is noted. Diastolic function is indeterminant. She also has moderate tricuspid regurgitation. Patient says she was a former smoker she quit back in the 1960s but she has been around cigarette smoke most of her life. Past Med Surg Social Fam HX - Past Medical History Medical history: cardiomyopathy, COPD, coronary artery disease, diabetes, GERD, GI bleed, hyperlipidemia, hypertension, myocardial infarction, peripheral artery disease, renal disease Psychiatric history: depression - Past Surgical History Surgical History: angioplasty/stent, appendectomy, hysterectomy, orthopedic, other - Social History Smoking Status: Current every day smoker Packs per day: 1 PPD Smokeless Tobacco Status: No Alcohol use: none Drug use: none - Family History Brother Race: Family Member Ethnicity: Non- Living Status: Age at : 52 Cause of : Cancer Hx Family Cancer: Yes Father Adopted: No Race: Family Member Ethnicity: Non- Living Status: Age at : 77 Cause of : Lung cancer Hx Family Cardiac Disorders: Yes (CAD, AL) Hx Family Respiratory Disorders: Yes Hx Family Cancer: Yes (Lung) Hx Family GI Disorders: No Hx Family Endocrine Disorder: Yes Hx Family Neuromuscular Disorders: No Hx Family Neurologic Disorders: No Hx Family HEENT Disorders: No Hx Family Autoimmune Disorders: No Mother Adopted: No Race: Family Member Ethnicity: Non- Living Status: Cause of : AL Hx Family Cardiac Disorders: Yes ([place], CAD) Hx Family Respiratory Disorders: Yes Hx Family Cancer: No Hx Family GI Disorders: Yes Hx Family Endocrine Disorder: Yes (Diabetes) Hx Family Neuromuscular Disorders: No Hx Family Neurologic Disorders: No Hx Family HEENT Disorders: No Hx Family Autoimmune Disorders: No Medications and Allergies Albuterol Sulfate [Albuterol Inhaler] 2 puff IH Q4HR PRN 06/15/15 [History] Albuterol Neb [Proventil Neb] 2.5 mg IH Q6H PRN 07/10/17 [History] Atorvastatin [Lipitor] 40 mg PO HS tablet 07/14/17 [Rx] Amlodipine Besylate 10 mg PO DAILY 08/28/17 [History] Bumetanide 0.5 mg PO DAILY 08/28/17 [History] Duloxetine HCl [Cymbalta] 60 mg PO DAILY 08/28/17 [History] Fenofibrate Nanocrystallized [Tricor] 145 mg PO DAILY 08/28/17 [History] Gabapentin [Neurontin] 300 mg PO BID capsule 09/06/17 [Rx] Isosorbide MONOnitrate (24 HR) [Imdur] 120 mg PO DAILY tab.er.24h 09/06/17 [Rx] Metoprolol XL (24 HR) Succ [Toprol Xl] 100 mg PO DAILY tab.er.24h 09/06/17 [Rx] Nitroglycerin 0.4 mg SL Q5MIN PRN tab.subl 09/06/17 [Rx] OxyCODONE Immed Rel [Roxicodone 5 MG] 5 mg PO Q4HR PRN #20 tablet 09/06/17 [Rx] cloNIDine HCl [CloNIDine HCl] 0.2 mg PO Q8H tablet 09/06/17 [Rx] Digoxin [Lanoxin] 0.125 mg PO Q48H 09/11/17 [History] 3 Allergy/AdvReac Type Severity Reaction Status Date / Time Erythromycin Base Allergy Vomiting Verified 08/28/17 13:28 Penicillins [PCN] Allergy Rash Verified 08/28/17 13:28 codeine AdvReac Nausea Verified 09/02/17 09:39 indapamide [From Lozol] AdvReac See Verified 08/28/17 13:28 Comments Review of Systems Constitutional: as per HPI, weakness Eyes: bilateral: blurred vision (patient denies), diplopia (patient denies) Nose, mouth and throat: no dizziness, no headache(s) Cardiovascular: dyspnea, dyspnea on exertion, edema, leg edema, no chest pain, no palpitations Respiratory: cough, dyspnea, dyspnea on exertion Gastrointestinal: no abdominal pain, no change in bowel habits Musculoskeletal: no muscle weakness, no numbness Integumentary: no hirsutism, no striae Neurological: as per HPI, weakness Psychiatric: no depression, no difficulty concentrating Endocrine: as per HPI Hematologic/Lymphatic: no easy bruising, no lymphadenopathy Exam - Vital Signs Vital signs: Initial Vital Signs Temp Pulse Resp BP Pulse Ox 97 F L 65 14 158/73 94 09/10/17 18:51 09/10/17 18:51 09/10/17 18:51 09/10/17 18:51 09/10/17 18:51 Vital Signs - Last 8 Hours Temp Pulse Resp BP Pulse Ox 09/17/17 07:29 16 98 09/17/17 05:17 97.4 F L 71 16 154/63 98 09/17/17 03:54 16 94 09/17/17 00:15 97.4 F L 72 15 154/52 96 Intake and Output 09/16/17 09/16/17 09/17/17 15:59 23:59 07:59 Intake Total 1100 / 1100 Balance 1100 / 1100 Intake: IV Fluids 1100 / 1100 Sodium Bicarbonate 100 MEQ In 1100 / 1100 D5% And 0.45% Nacl 1000 Ml Bag 1,000 ML @ 75 mls/hr IVC . [id number] JEFF Rx#:[id number] Other: # Voids 1 # Urine Diapers 0 Weight 70 kg Blood Glucose* 134 144 Patient Weight 09/17/17 23:59 Weight 70 kg - General Appearance Exam: Patient appears alert. She is in no acute distress. Blood pressure is 163/90. Urine output is recorded as 2.1 L yesterday. Lungs exhibit bilateral diminished breath sounds in the bases. Heart regular rate and rhythm with a 2/ 6 ejection murmur. Abdomen is soft. There is some generalized tenderness but no guarding or rigidity. Lower extremities show 3+ lower extremity swelling. A Matamoros catheters in place. Results - Lab Results 09/16/17 02:44 09/17/17 05:07 Most recent lab results Calcium 8.3 mg/dL (8.6-10.8) L 09/17/17 05:07 Magnesium 1.8 mg/dL (1.6-2.6) 09/14/17 05:47 Urine Creatinine 29 mg/dL 09/12/17 16:30 Urine Total Protein 216 mg/dL (1-14) H 09/12/17 16:30 Consult Discharge Plan - Plan Referrals: Aureliano Horton MD [Primary Care Provider] -
[2017-09-17] MEDS ORDERED: 0.9 % Sodium Chloride 250 ML IVC PRN (08:06)
--- NOTE | 2017-09-17 08:06 | Nephrology Progress Note ---
Date of Encounter: 09/17/17 Time of Encounter: 08:04 - Assessment and Plan (1) LOUANN (acute kidney injury) Current Visit: Yes Status: Acute Patient has acute kidney injury superimposed on stage III to stage IV chronic kidney disease in the setting of bacteremia and urinary tract infection and possible pneumonia. Renal function continues to slowly worsen. Since the patient's renal function continues to worsen and she appears to be oliguric with going to initiate dialysis today. I did discuss this with one of her daughters today as well as with another daughter yesterday. They are both in agreement to proceed with dialysis. (2) Chronic kidney disease, stage III (moderate) Current Visit: Yes Status: Acute (3) UTI (urinary tract infection) Current Visit: Yes Status: Acute Qualifiers: Urinary tract infection type: site unspecified Hematuria presence: with hematuria Qualified Code(s): N39.0 - Urinary tract infection, site not specified; R31.9 - Hematuria, unspecified; R31.9 - Hematuria, unspecified (4) Bacteremia Current Visit: Yes Status: Acute (5) S/P shoulder replacement Current Visit: Yes Status: Acute Qualifiers: Laterality: left Qualified Code(s): Z96.612 - Presence of left artificial shoulder joint Subjective Interval history: The patient remains confused but currently appears to be less agitated. Her azotemia continues to increase. There is no urine output recorded for the past 24 hours. Objective - Vital Signs Vital signs: Vital Signs Temp Pulse Resp BP Pulse Ox 09/17/17 07:29 16 98 09/17/17 05:17 97.4 F L 71 16 154/63 98 09/17/17 03:54 16 94 09/17/17 00:15 97.4 F L 72 15 154/52 96 09/16/17 23:35 18 95 09/16/17 21:13 98.1 F 89 16 122/71 90 09/16/17 21:03 98.6 F 75 16 110/61 93 09/16/17 20:06 18 91 09/16/17 16:39 98.0 F 77 16 193/72 95 09/16/17 16:03 16 96 09/16/17 12:00 176/91 09/16/17 11:47 16 99 09/16/17 11:12 97.8 F 60 19 80/46 99 Intake and Output 09/16/17 09/17/17 09/17/17 23:59 07:59 15:59 Intake Total 1100 / 1100 Balance 1100 / 1100 Intake: IV Fluids 1100 / 1100 Sodium Bicarbonate 100 MEQ In 1100 / 1100 D5% And 0.45% Nacl 1000 Ml Bag 1,000 ML @ 75 mls/hr IVC . [id number] JEFF Rx#:[id number] Other: # Voids 1 # Urine Diapers 0 Weight 70 kg Blood Glucose* 144 Patient Weight 09/17/17 23:59 Weight 70 kg - General Appearance Exam: Patient is currently resting. Lungs bilateral wheezing and rhonchi. Heart regular rate and rhythm. Abdomen is nontender. There is increasing lower extremity as well as upper extremity edema. - Lab 09/16/17 02:44 09/17/17 05:07 Most recent lab results Calcium 8.3 mg/dL (8.6-10.8) L 09/17/17 05:07 Magnesium 1.8 mg/dL (1.6-2.6) 09/14/17 05:47 Urine Creatinine 29 mg/dL 09/12/17 16:30 Urine Total Protein 216 mg/dL (1-14) H 09/12/17 16:30 - VTE Documentation of Mechanical Device: Intermittent pneumatic compression device Consult Discharge Plan - Plan Referrals: Aureliano Horton MD [Primary Care Provider] -
[2017-09-17] MEDS: Nicotine 14 MG PATCH.TD24 TD SCH (08:57)
[2017-09-17] MEDS: Insulin LISPRO 300 UNITS/3 ML VIAL SQ SCH ×4 (08:59→21:11)
[2017-09-17 09:57] LABS: Hepatitis B Surface Antigen Nonreactive (Nonreactive)
--- NOTE | 2017-09-17 10:17 | Internal Med Progress Note ---
Date of Encounter: 09/17/17 Time of Encounter: 10:00 - Assessment and plan (1) Encephalopathy acute Current Visit: Yes Status: Acute Assessment and plan: She is altered this morning she is alert oriented 0. I believe this is multifactorial and she has many things going including infectious etiology as she is bacteremic as well as dealing with a UTI and pneumonia. She also received 2 doses of oxycodone over the last 10 hours. She is also uremic. I believe it is best to check a CT had as I do not see this checked since admission. I will check digoxin level. I will hold any narcotics and I have talked to her nurse to not administer any narcotics. Given her mental status she is hard to take any by mouth at the moment. I will switch what can be switched to IV. We will continue with the antibiotics for the infections. (2) Acute respiratory failure with hypoxia Current Visit: No Status: Acute Assessment and plan: This is multifactorial with pneumonia on top of volume overload. She is on antibiotics for the pneumonia she should get some volume removed with dialysis later today. We will continue to monitor and wean her off oxygen as tolerated. (3) Acute renal failure Current Visit: No Status: Resolved Assessment and plan: Nephrology is following plans for dialysis initiation today. She is scheduled for a line placement this morning. Avoid nephrotoxins Qualifiers: Acute renal failure type: with acute tubular necrosis Qualified Code(s): N17.0 - Acute kidney failure with tubular necrosis (4) UTI (urinary tract infection) Current Visit: Yes Status: Acute Assessment and plan: Grown ESBL. She is on ertapenem. We will continue that today. Qualifiers: Urinary tract infection type: acute cystitis Hematuria presence: without hematuria Qualified Code(s): N30.00 - Acute cystitis without hematuria (5) HCAP (healthcare-associated pneumonia) Current Visit: Yes Status: Acute Assessment and plan: Continue with ertapenem (6) Bacteremia Current Visit: Yes Status: Acute (7) DM (diabetes mellitus), type 2 Current Visit: No Status: Chronic Qualifiers: Diabetes mellitus complication status: with kidney complications Diabetes mellitus complication detail: with chronic kidney disease Diabetes mellitus penitentiary insulin use: with penitentiary use Chronic kidney disease stage: stage 3 (moderate) Qualified Code(s): E11.22 - Type 2 diabetes mellitus with diabetic chronic kidney disease; N18.3 - Chronic kidney disease, stage 3 ( moderate); Z79.4 - snf (current) use of insulin (8) Diabetes Current Visit: Yes Status: Chronic Assessment and plan: With her being altered I would continue with insulin sliding scale. Continue with Accu-Cheks she is not hyperglycemic. Qualifiers: Diabetes mellitus type: type 2 Diabetes mellitus complication status: with unspecified complications Diabetes mellitus continuous churn buttermaker insulin use: unspecified continuous churn buttermaker insulin use status Qualified Code(s): E11.8 - Type 2 diabetes mellitus with unspecified complications (9) HTN (hypertension) Current Visit: Yes Status: Chronic Qualifiers: Hypertension type: essential hypertension Qualified Code(s): I10 - Essential (primary) hypertension (10) Bacteremia Current Visit: Yes Status: Acute Assessment and plan: Growing ESBL from cultures on admission. We will repeat the blood cultures continue with ertapenem. At some point is probably warranted nor she is more stabilized to check an echocardiogram. She continues to have an elevated white count though it is better than what it has been days back. I have ordered a repeat CBC. (11) Hyperkalemia Current Visit: Yes Status: Acute (12) DVT prophylaxis Current Visit: Yes Status: Acute Assessment and plan: We will add heparin subcutaneous - Subjective Interval history: Patient was seen and examined. Daughter is at bedside. I was called by the nurse was telling me that the patient is altered this morning moaning and groaning. I went and evaluated the patient. She seems to have been dealing with altered mental status throughout her stay. She is hemodynamically stable. She is not really following my commands. She has been afebrile. She was seen by nephrology regular in today with plans for dialysis to be initiated today. - Constitutional Vitals: Temp Pulse Resp BP Pulse Ox 97.4 F L 60 20 173/61 98 09/17/17 07:58 09/17/17 07:58 09/17/17 07:58 09/17/17 07:58 09/17/17 07:58 General appearance: Present: A&O X 0, mild distress, underweight Exam: GEN:grunting but not in distress CVS: RRR. S1, S2, No m/r/g RESP: coarse with bibailar crackles ABD: Soft, NT, ND, +BS EXT: 1+ edema. 2+ DP, No rashes NEURO: pupils are equal and reactive otherwise she is not following commands Internal Medicine: Result - Labs CBC & Chem 7: 09/16/17 02:44 09/17/17 05:07 Labs: BMP 09/17/17 05:07 Sodium 134 L Potassium 5.1 H Chloride 108 Carbon Dioxide 16 L BUN 74 H Creatinine 4.84 H Glucose 143 H Calcium 8.3 L Liver Function 09/17/17 Range/Units 05:07 Total Bilirubin 0.5 (0.2-1.2) mg/dL AST 21 (5-34) Units/L ALT 9 (0-55) Units/L Alkaline Phosphatase 95 (38-126) Units/L Albumin 1.7 L (3.5-5.0) g/dL - ABG Interpretation ABG results: PT/INR, D-dimer PT 14.1 Seconds (9.4-12.1) H 09/12/17 03:58 - Impressions Impressions Chest X-Ray 09/16/17 08:20 IMPRESSION: Constellation of findings most suggestive of CHF. D/ / Refugio Mars MD / Refugio Mars MD Interpreting Provider: Refugio Mars MD - VTE Documentation of Mechanical Device: Intermittent pneumatic compression device Consult Discharge Plan - Plan Referrals: Aureliano Horton MD [Primary Care Provider] -
[2017-09-17 10:49] LABS: Hemoglobin 9.5 g/dL (11.5-15.4); Mean Corpuscular HGB Conc 30.6 g/dL (31.6-35.5); Mean Corpuscular Hemoglobin 26.9 pg (28.0-33.3); Mean Corpuscular Volume 87.8 fL (83.0-100.0); Mean Platelet Volume 9.9 fL (9.4-12.4); Platelet Count 223 K/mcL (140-400); Red Blood Count 3.53 M/mcL (3.82-4.97); Red Cell Distribution Width 19.6 % (11.5-14.5)
[2017-09-17] MEDS: Aspirin Enteric Coated 81 MG Tablet PO SCH (10:59)
[2017-09-17] MEDS: amLODIPine 5 MG TABLET PO SCH (10:59)
[2017-09-17] MEDS: Metoprolol XL (24 HR) Succ 50 MG TAB.ER.24H PO SCH (10:59)
[2017-09-17] MEDS: Isosorbide MONOnitrate (24 HR) 60 MG TAB.ER.24H PO SCH (10:59)
[2017-09-17] MEDS: cloNIDine HCl 0.1 MG TABLET PO SCH ×2 (10:59→21:12)
[2017-09-17] MEDS: *HR* Digoxin 0.125 MG TABLET PO SCH (11:00)
[2017-09-17 11:11] LABS: Lymphocytes # 0.3 K/mcL (0.6-4.6); Monocytes # 1.9 K/mcL (0.0-1.3); Neutrophils # 13.6 K/mcL (1.6-8.9); Platelet Clumps Few (Not Present)
[2017-09-17 11:12] LABS: Polychromasia 1+ (Not Present)
[2017-09-17] MEDS ORDERED: 0.9 % Sodium Chloride 2,000 ML ONE (12:48)
[2017-09-17] MEDS ORDERED: *HR* Heparin 10,000 UNIT/10 ML VIAL IV PRN (14:33)
[2017-09-17 15:00] LABS: Complement Component 3 104 mg/dL (88-201)
[2017-09-17] MEDS: *HR* Heparin 5,000 UNIT/ML VIAL SQ SCH ×2 (17:49→23:31)
[2017-09-17] MEDS: Ertapenem 500 MG in Water for inj. (sterile) 10 ML IVP SCH (17:49)
[2017-09-18] MEDS: Ipratropium/Albuterol Neb 3 ML IH SCH ×5 (04:38→19:51)
[2017-09-18 05:26] LABS: Basophils % 0.2 %; Eosinophils % 0.1 %; Hematocrit 30.3 % (35.3-44.9); Hemoglobin 9.7 g/dL (11.5-15.4); Lymphocytes # 0.7 K/mcL (0.6-4.6); Lymphocytes % 3.8 %; Mean Corpuscular Hemoglobin 27.7 pg (28.0-33.3); Mean Corpuscular Volume 86.6 fL (83.0-100.0); Mean Platelet Volume 9.9 fL (9.4-12.4); Monocytes % 5.8 %; Neutrophils # 15.3 K/mcL (1.6-8.9); Platelet Count 192 K/mcL (140-400); Red Cell Distribution Width 19.2 % (11.5-14.5); Segmented Neutrophils % 87.1 %
[2017-09-18 05:33] LABS: Albumin 1.8 g/dL (3.5-5.0); Albumin/Globulin Ratio 0.5 (1.1-2.2); Bilirubin,Total 0.7 mg/dL (0.2-1.2); Calcium 8.1 mg/dL (8.6-10.8); Potassium 4.8 mEq/L (3.5-4.5); Total Protein 5.8 g/dL (6.0-8.3)
[2017-09-18] MEDS: *HR* Heparin 5,000 UNIT/ML VIAL SQ SCH ×2 (06:18→15:58)
[2017-09-18] MEDS ORDERED: 0.9 % Sodium Chloride 250 ML IVC PRN (08:05)
--- NOTE | 2017-09-18 08:05 | Nephrology Progress Note ---
Date of Encounter: 09/18/17 Time of Encounter: 08:03 - Assessment and Plan (1) LOUANN (acute kidney injury) Current Visit: Yes Status: Acute Patient has acute kidney injury superimposed on stage III to stage IV chronic kidney disease in the setting of bacteremia and urinary tract infection and possible pneumonia. She appears to be oligo anuric. Dialysis was initiated yesterday. We will proceed with dialysis again today for control of volume and azotemia. (2) Chronic kidney disease, stage III (moderate) Current Visit: Yes Status: Acute (3) UTI (urinary tract infection) Current Visit: Yes Status: Acute Qualifiers: Urinary tract infection type: site unspecified Hematuria presence: with hematuria Qualified Code(s): N39.0 - Urinary tract infection, site not specified; R31.9 - Hematuria, unspecified; R31.9 - Hematuria, unspecified (4) Bacteremia Current Visit: Yes Status: Acute (5) S/P shoulder replacement Current Visit: Yes Status: Acute Qualifiers: Laterality: left Qualified Code(s): Z96.612 - Presence of left artificial shoulder joint Subjective Interval history: The patient is confused. She does not answer any questions. Dialysis was initiated yesterday. Urine output is recorded as 0 from yesterday. Azotemia is somewhat improved. Blood cultures from September 16 are negative. White count remains elevated at 17.6. Objective - Vital Signs Vital signs: Vital Signs Temp Pulse Resp BP Pulse Ox 09/18/17 07:10 98.3 F 100 22 123/75 93 09/18/17 04:38 21 93 09/18/17 03:56 98.4 F 77 16 120/46 93 09/17/17 23:44 21 88 09/17/17 23:13 98.1 F 105 19 161/59 88 09/17/17 20:59 22 85 09/17/17 19:06 97.4 F L 98 18 164/81 98 09/17/17 15:56 97.4 F L 86 20 99/66 97 09/17/17 15:25 15 98 09/17/17 14:40 96.7 F L 15 193/92 09/17/17 14:30 154/71 09/17/17 14:00 178/77 09/17/17 13:30 180/72 09/17/17 13:00 173/69 09/17/17 12:30 97.5 F L 18 141/90 Intake and Output 09/17/17 09/18/17 09/18/17 23:59 07:59 15:59 Intake Total 200 / 200 Balance 200 / 200 Intake: IV Fluids 200 / 200 Sodium Bicarbonate 100 MEQ In 200 / 200 D5% And 0.45% Nacl 1000 Ml Bag 1,000 ML @ 75 mls/hr IVC . [id number] [facility] Rx#:[id number] Oral 0 / 0 Other: Percent of Meal Consumed 0% Weight 74.162 kg Blood Glucose* 143 150 Patient Weight 09/18/17 23:59 Weight 74.162 kg - General Appearance Exam: Patient appears to be in no acute distress. Lungs coarse breath sounds bilaterally. Heart regular rate and rhythm. Abdomen is benign. There is 2+ lower extremity swelling. There is a temporary femoral dialysis catheter in place. - Lab 09/18/17 05:00 09/18/17 05:00 Most recent lab results Calcium 8.1 mg/dL (8.6-10.8) L 09/18/17 05:00 Magnesium 1.8 mg/dL (1.6-2.6) 09/14/17 05:47 Urine Creatinine 29 mg/dL 09/12/17 16:30 Urine Total Protein 216 mg/dL (1-14) H 09/12/17 16:30 - VTE Documentation of Mechanical Device: Intermittent pneumatic compression device Consult Discharge Plan - Plan Referrals: Aureliano Horton MD [Primary Care Provider] -
[2017-09-18] MEDS: Insulin LISPRO 300 UNITS/3 ML VIAL SQ SCH ×3 (08:06→17:31)
[2017-09-18 08:38] LABS: Complement Component 4 32 mg/dL (10-40)
[2017-09-18] MEDS: D5 IVC SCH (09:12)
[2017-09-18] MEDS: SODIUM BICARBONATE IVC SCH (09:12)
[2017-09-18] MEDS: NACL IVC SCH (09:12)
[2017-09-18] MEDS: Aspirin Enteric Coated 81 MG Tablet PO SCH (09:19)
[2017-09-18] MEDS: cloNIDine HCl 0.1 MG TABLET PO SCH (09:20)
[2017-09-18] MEDS: Metoprolol XL (24 HR) Succ 50 MG TAB.ER.24H PO SCH (09:21)
[2017-09-18] MEDS: amLODIPine 5 MG TABLET PO SCH (09:21)
[2017-09-18] MEDS: Isosorbide MONOnitrate (24 HR) 60 MG TAB.ER.24H PO SCH (09:21)
[2017-09-18] MEDS: Nicotine 14 MG PATCH.TD24 TD SCH (09:54)
[2017-09-18] MEDS ORDERED: Furosemide 40 MG/4 ML VIAL IVP ONE (10:24)
[2017-09-18] MEDS ORDERED: Furosemide 40 MG/4 ML VIAL ONE (10:26)
[2017-09-18 10:41] LABS: Hepatitis B Surface Antibody 0.58 mIU/mL
[2017-09-18] MEDS ORDERED: 0.9 % Sodium Chloride 2,000 ML ONE (11:55)
[2017-09-18 13:50] LABS: ABG Base Excess 1 mEq/L (-2 to 3); ABG HCO3 28 mEq/L (21-27); ABG Oxygen Saturation 95 % (95-98); ABG PCO2 55 mmHg (35-45); ABG PH 7.32 pH Units (7.32-7.45); ABG PO2 81 mmHg (85-104); ABG TCO2 30 mEq/L (20-26)
--- NOTE | 2017-09-18 15:25 | Internal Med Progress Note ---
Date of Encounter: 09/18/17 Time of Encounter: 10:20 - Assessment and plan (1) Encephalopathy acute Current Visit: Yes Status: Acute Assessment and plan: Toxic metabolic encephalopathy. Multifactorial. Continue to treat underlying conditions. We will also get EEG and MRI of the brain. Consult palliative care to discuss goals of care for the patient. High risk for complications. (2) Acute respiratory failure with hypoxia Current Visit: Yes Status: Acute Assessment and plan: Continues to have acute respiratory failure. Chest x-ray shows pulmonary edema. IV fluids have been stopped. Patient underwent dialysis for 1 hour 45 minutes before she was found to have apneic spells and dialysis was stopped. Will continue O2 supplementation. ABG shows PO2 of 81 and PCO2 of 55 while the patient is on Oxymask (3) Witnessed apneic spells Current Visit: Yes Status: Acute Assessment and plan: Uncertain etiology. Could be sleep apnea. Sats remained good. Will monitor for now. (4) Acute renal failure Current Visit: Yes Status: Acute Assessment and plan: Continue dialysis per nephrology recommendations. Qualifiers: Acute renal failure type: with acute tubular necrosis Qualified Code(s): N17.0 - Acute kidney failure with tubular necrosis (5) Bacteremia Current Visit: Yes Status: Acute Assessment and plan: With ESBL Escherichia coli. Repeat cultures have been negative. (6) DM (diabetes mellitus), type 2 Current Visit: Yes Status: Chronic Assessment and plan: Well-controlled. Patient has not eaten anything much for the past couple of days. We will continue to monitor blood sugars closely. Qualifiers: Diabetes mellitus complication status: with kidney complications Diabetes mellitus complication detail: with chronic kidney disease Diabetes mellitus termite renewal inspector insulin use: with prison use Chronic kidney disease stage: stage 3 (moderate) Qualified Code(s): E11.22 - Type 2 diabetes mellitus with diabetic chronic kidney disease; N18.3 - Chronic kidney disease, stage 3 ( moderate); Z79.4 - jail (current) use of insulin (7) DVT prophylaxis Current Visit: Yes Status: Acute Assessment and plan: Continue subcutaneous heparin (8) HTN (hypertension) Current Visit: Yes Status: Chronic Assessment and plan: Blood pressure elevated today during dialysis. It has been fairly controlled otherwise. We will continue to monitor. We will use intravenous medications to control blood pressure as patient is unable to take oral medications. Qualifiers: Hypertension type: essential hypertension Qualified Code(s): I10 - Essential (primary) hypertension (9) UTI (urinary tract infection) Current Visit: Yes Status: Acute Assessment and plan: With ESBL Escherichia coli. Continue ertapenem Qualifiers: Urinary tract infection type: acute cystitis Hematuria presence: without hematuria Qualified Code(s): N30.00 - Acute cystitis without hematuria - Subjective Interval history: Patient not responding to verbal commands. Withdraws to pain. Having apneic spells. According to nursing staff this has been going on for the past couple of days. Even yesterday morning patient was apparently moaning in bed. Patient was then taken for dialysis later today and had more episodes of apneic spells during dialysis was stopped [place]. She seems to have improved with regards to that and is now back in her room. - Constitutional Vitals: Temp Pulse Resp BP Pulse Ox 98.2 F 95 18 143/56 95 09/18/17 12:30 09/18/17 11:33 09/18/17 12:30 09/18/17 14:20 09/18/17 11:33 General appearance: Present: A&O X 0, underweight - Respiratory Respiratory exam: Present: CTAB. Absent: accessory muscle use, rales, rhonchi, wheezes Additional comments: Apneic spells - Cardiovascular Cardiovascular exam: Present: RRR, +S1, +S2. Absent: diastolic murmur, gallop, rubs, systolic murmur - GI/Abdominal GI/Abdominal exam: Present: normal bowel sounds, soft, no peritoneal signs. Absent: distended, tenderness - Extremities Exam Extremities exam: Present: warm, radial pulses palpable and symmetrical. Absent : calf tenderness, cyanotic, pedal edema - Neurological Exam Neurological exam: Present: altered. Absent: facial droop - Skin Skin exam: Present: dry, intact Internal Medicine: Result - Labs CBC & Chem 7: 09/18/17 05:00 09/18/17 05:00 Labs: Short CBC 09/18/17 Range/Units 05:00 WBC 17.6 H (4.3-11.1) K/mcL Hgb 9.7 L (11.5-15.4) g/dL Hct 30.3 L (35.3-44.9) % Plt Count 192 (140-400) K/mcL Neutrophils # 15.3 H (1.6-8.9) K/mcL BMP 09/18/17 05:00 Sodium 138 Potassium 4.8 H Chloride 105 Carbon Dioxide 21 BUN 51 H D Creatinine 3.92 H Glucose 174 H Calcium 8.1 L Liver Function 09/18/17 Range/Units 05:00 Total Bilirubin 0.7 (0.2-1.2) mg/dL AST 28 (5-34) Units/L ALT 10 (0-55) Units/L Alkaline Phosphatase 105 (38-126) Units/L Albumin 1.8 L (3.5-5.0) g/dL - ABG Interpretation ABG results: ABG ABG pH 7.32 pH Units (7.32-7.45) 09/18/17 13:47 ABG pCO2 55 mmHg (35-45) H 09/18/17 13:47 ABG pO2 81 mmHg (85-104) L 09/18/17 13:47 ABG O2 Saturation 95 % (95-98) 09/18/17 13:47 PT/INR, D-dimer PT 14.1 Seconds (9.4-12.1) H 09/12/17 03:58 - Impressions Impressions Chest X-Ray 09/18/17 09:18 IMPRESSION: 1. Slight interval worsening since 09/16/2017 of pulmonary edema. Superimposed infection would be difficult to exclude. D/ / 09/18/2017 09:45:59 Elayne Garza MD / [email or web address] Interpreting Provider: Elayne Garza MD - VTE Documentation of Mechanical Device: Intermittent pneumatic compression device Consult Discharge Plan - Plan Referrals: Aureliano Horton MD [Primary Care Provider] -
[2017-09-18] MEDS: Ertapenem 500 MG in Water for inj. (sterile) 10 ML IVP SCH (15:59)
--- NOTE | 2017-09-18 16:17 | Palliative - Consult Note ---
Date of Encounter: 09/18/17 Time of Encounter: 14:30 - Assessment and Plan (1) LOUANN (acute kidney injury) Current Visit: Yes Status: Acute Assessment and plan: Currently on dialysis, (2) Goals of care, counseling/discussion Current Visit: Yes Status: Acute Assessment and plan: Patient's CODE STATUS has been well determined by the patient and family in the past she is DNR CCA DNI. She and sister Kay Huff is the medical power of assistant county attorney and I have asked her to bring in the paperwork. She states she will look for do so. Currently the plan is for her to continue getting treatment and to return back to [facility] to finish out the rehabilitation on her shoulder. Patti states that she would not want to live this way, and I have discussed with them at length about options if she should not get better. At this time however the thought is that the patient may only be on dialysis temporarily we should definitely continue to do this. Full neurologic workup is in process will know more tomorrow. I had a long discussion with family at bedside were all of this will continue to follow. (3) Altered mental status Current Visit: Yes Status: Acute Assessment and plan: Probably multifactorial in nature, including but not limited to the possibility of stroke or seizures, all I cephalopathy secondary to renal failure and/or infection. Qualifiers: Altered mental status type: unspecified Qualified Code(s): R41.82 - Altered mental status, unspecified (4) Bacteremia Current Visit: Yes Status: Acute Assessment and plan: Blood culture and urine culture showing ESBL Escherichia coli and aggressively treated as well as pneumonia. (5) Encephalopathy acute Current Visit: Yes Status: Acute Assessment and plan: Already noted above secondary to neurologic events including but not limited to CVA seizures or just an acute encephalopathy secondary to renal failure and active uremia. Neurologic workup is in progress plan per hospitalist team nephrology also following for renal failure. Palliative-CN HPI - Data of Consult Patient: new to practice Requesting Physician: Cleveland Tam MD Primary Care Provider: Aureliano Horton MD - Consult Narrative Palliative Care/Comfort Measures: Palliative care Reason for consult: Discuss goals of care History of present illness: Ms. Nur is a 72 year old female Who was admitted to the hospital with altered mental status from [facility] where she was getting rehabilitation status post left shoulder surgery that was as a result of a fall. He been having this approximate 2 days prior to admission to the hospital and on admission to the hospital she was found to have a urinary tract infection and pneumonia. At that time she was also noted to have an acute kidney injury and hyperkalemia she does have diabetes and she also had an elevated troponin that was felt to be reactive. Over the next several days she was treated aggressively for her infections. As treating her acute kidney injury and her hyperkalemia. By 12 , however 80 function had deteriorated to such a point is requiring she consultation. At that time, however she did not need dialysis. Y 1212 however it was clear was going to need dialysis this was discussed with the family by nephrology and dialysis was instituted. Her the last several days the patient's mental status has again changed, she is no longer eating or drinking. Output is low she is now getting dialysis. And today was noted by the hospitalist that she had further change in her mental status and changes on her exam. Consequently she is now getting an MRI and an EEG. She had had an agonal breathing rhythm over in dialysis during the course of getting dialyzed today, and the family was called in however by the time she will return to the room her breathing pattern had returned to normal. The patient is currently unresponsive to voice but in no apparent distress. CC: Cleveland Tam MD Altered mental status Past Med Surg Social Fam HX - Past Medical History Medical history: cardiomyopathy, COPD, coronary artery disease, diabetes, GERD, GI bleed, hyperlipidemia, hypertension, myocardial infarction, peripheral artery disease, renal disease Psychiatric history: depression - Past Surgical History Surgical History: angioplasty/stent, appendectomy, hysterectomy, orthopedic, other - Social History Smoking Status: Current every day smoker Packs per day: 1 PPD Smokeless Tobacco Status: No Alcohol use: none Drug use: none - Family History Brother Race: Family Member Ethnicity: Non- Living Status: Age at : 52 Cause of : Cancer Hx Family Cancer: Yes Father Adopted: No Race: Family Member Ethnicity: Non- Living Status: Age at : 77 Cause of : Lung cancer Hx Family Cardiac Disorders: Yes (CAD, CT) Hx Family Respiratory Disorders: Yes Hx Family Cancer: Yes (Lung) Hx Family GI Disorders: No Hx Family Endocrine Disorder: Yes Hx Family Neuromuscular Disorders: No Hx Family Neurologic Disorders: No Hx Family HEENT Disorders: No Hx Family Autoimmune Disorders: No Mother Adopted: No Race: Family Member Ethnicity: Non- Living Status: Cause of : CT Hx Family Cardiac Disorders: Yes (CT, CAD) Hx Family Respiratory Disorders: Yes Hx Family Cancer: No Hx Family GI Disorders: Yes Hx Family Endocrine Disorder: Yes (Diabetes) Hx Family Neuromuscular Disorders: No Hx Family Neurologic Disorders: No Hx Family HEENT Disorders: No Hx Family Autoimmune Disorders: No Medications and Allergies Albuterol Sulfate [Albuterol Inhaler] 2 puff IH Q4HR PRN 06/15/15 [History] Albuterol Neb [Proventil Neb] 2.5 mg IH Q6H PRN 07/10/17 [History] Atorvastatin [Lipitor] 40 mg PO HS tablet 07/14/17 [Rx] Amlodipine Besylate 10 mg PO DAILY 08/28/17 [History] Bumetanide 0.5 mg PO DAILY 08/28/17 [History] Duloxetine HCl [Cymbalta] 60 mg PO DAILY 08/28/17 [History] Fenofibrate Nanocrystallized [Tricor] 145 mg PO DAILY 08/28/17 [History] Gabapentin [Neurontin] 300 mg PO BID capsule 09/06/17 [Rx] Isosorbide MONOnitrate (24 HR) [Imdur] 120 mg PO DAILY tab.er.24h 09/06/17 [Rx] Metoprolol XL (24 HR) Succ [Toprol Xl] 100 mg PO DAILY tab.er.24h 09/06/17 [Rx] Nitroglycerin 0.4 mg SL Q5MIN PRN tab.subl 09/06/17 [Rx] OxyCODONE Immed Rel [Roxicodone 5 MG] 5 mg PO Q4HR PRN #20 tablet 09/06/17 [Rx] cloNIDine HCl [CloNIDine HCl] 0.2 mg PO Q8H tablet 09/06/17 [Rx] Digoxin [Lanoxin] 0.125 mg PO Q48H 09/11/17 [History] 3 Allergy/AdvReac Type Severity Reaction Status Date / Time Erythromycin Base Allergy Vomiting Verified 08/28/17 13:28 Penicillins [PCN] Allergy Rash Verified 08/28/17 13:28 codeine AdvReac Nausea Verified 09/02/17 09:39 indapamide [From Lozol] AdvReac See Verified 08/28/17 13:28 Comments ROS unobtainable: due to mental status Palliative Care-Exam - Constitutional Vitals: Temp Pulse Resp BP Pulse Ox 98.2 F 95 18 143/56 95 09/18/17 12:30 09/18/17 11:33 09/18/17 12:30 09/18/17 14:20 09/18/17 11:33 General appearance: Present: no acute distress - Head Head Exam: Present: atraumatic, normal inspection - Eye Eye exam: Present: EOMI, normal appearance (Pupils are equal but poorly responsive). Absent: PERRL - ENT ENT exam: Present: mucous membranes moist - Respiratory Respiratory exam: Present: decreased breath sounds - Cardiovascular Cardiovascular exam: Present: RRR - GI/Abdominal Exam GI/Abdominal exam: Present: normal bowel sounds, soft. Absent: tenderness - Extremities Exam Extremities exam: Present: pedal edema. Absent: normal inspection, tenderness - Neurological Exam Neurological exam: Present: altered - Psychiatric Psychiatric exam: Absent: agitated, anxious - Skin Skin exam: Present: dry, warm Internal Medicine - CN: Reslt - Labs CBC & Chem 7: 09/18/17 05:00 09/18/17 05:00 Labs: Short CBC 09/18/17 Range/Units 05:00 WBC 17.6 H (4.3-11.1) K/mcL Hgb 9.7 L (11.5-15.4) g/dL Hct 30.3 L (35.3-44.9) % Plt Count 192 (140-400) K/mcL Neutrophils # 15.3 H (1.6-8.9) K/mcL BMP 09/18/17 05:00 Sodium 138 Potassium 4.8 H Chloride 105 Carbon Dioxide 21 BUN 51 H D Creatinine 3.92 H Glucose 174 H Calcium 8.1 L Liver Function 09/18/17 Range/Units 05:00 Total Bilirubin 0.7 (0.2-1.2) mg/dL AST 28 (5-34) Units/L ALT 10 (0-55) Units/L Alkaline Phosphatase 105 (38-126) Units/L Albumin 1.8 L (3.5-5.0) g/dL - ABG Interpretation ABG results: ABG ABG pH 7.32 pH Units (7.32-7.45) 09/18/17 13:47 ABG pCO2 55 mmHg (35-45) H 09/18/17 13:47 ABG pO2 81 mmHg (85-104) L 09/18/17 13:47 ABG O2 Saturation 95 % (95-98) 09/18/17 13:47 PT/INR, D-dimer PT 14.1 Seconds (9.4-12.1) H 09/12/17 03:58 - Impressions Impressions Chest X-Ray 09/18/17 09:18 IMPRESSION: 1. Slight interval worsening since 09/16/2017 of pulmonary edema. Superimposed infection would be difficult to exclude. D/ / 09/18/2017 09:45:59 Elayne Garza MD / maxine Interpreting Provider: Elayne Garza MD Consult Discharge Plan - Plan Referrals: Aureliano Horton MD [Primary Care Provider] - Palliative Quality Palliative Quality: Screen for Code Status: Yes, Screen for Goals of Care: Yes, Screen for Pain: Yes, If Pain Regimen Started, Initiate Bowel Regimen: Yes, Screen for Nausea/Vomitting: Yes
[2017-09-18 17:13] VITALS: BP 161/79
[2017-09-18] MEDS ORDERED: *HR* Metoprolol 5 MG/5 ML VIAL IVP SCH (18:00)
--- NOTE | 2017-09-18 20:37 | EEG/EMG/Oth Biometrics Report ---
EEG Procedure Report Date of procedure: 09/18/17 EEG Procedure: Routine EEG Procedure Note: Brief History: Pt unresponsive Technical Description: This EEG was acquired with standard international 10-20 electrode placement system with EKG recording. The Background activity during this EEG was replaced by diffuse background slowing in the range of delta and theta activity with predominant delta activity. The background activity was minimally active. Later during the recording, EEG tracing gradually evolved into higher amplitude delta activity and then diffusely thyrhmic sharp wave with a frequency of 1-1.5Hz rather persistently, these Triphasic sharp waves noted to be sharply contoured wave dscharges. Characteristic Appeared with rhythmic train of 1.5-2.5 /sec. Having medium to high voltage (>70uv) . Bilaterally synchronous and symmetrical , These waves are having anterior posterior lag of 25-140 sec. Appeared to be in hypoxic state, as well in intoxication, mainly in hepatic renal encephalopathy. commonly Seen in deep impairement of consciousness. Photic stimulation produced no abnormalities. HV not performed during this study. Impression: This is a severely abnormal EEG due to presence of bilateral periodic epileptiform discharges and presence of severe diffuse background slowing. Clinical Correlation: This EEG is consistent with severe diffuse cerebral dysfunction that can be seen in patients with severe encephalopathy, anoxic brain injury, toxic/ metabolic/ infectious etiologies, in particular with Renal and Hepatic failure, or it can occur as an inctal phenomenon in appropriate clinical settings. It can also be the result of sedatives. Clinical correlation advised .
--- NOTE | 2017-09-18 22:31 | Event Note ---
<Nabila Rojas - Last Filed: 09/18/17 22:28> Date of Encounter: 09/18/17 Time of Encounter: 22:28 The nurse paged to inform us that the patient had and that family was at bedside. The patient was examined and no heart or breathe sounds were present , no corneal or pupillary reflex. The patient was pronounced at 10:05pm. The family was talked with and all questions were answered. <Brandon Ash - Last Filed: 09/19/17 05:39> Date of Encounter: 09/19/17 I did assess the pt along with the resident Dr. Bob Dahl at bed side. Pt was pronounced at 10.05 PM. I did talk to the pt's family at bed side and answered all their questions. I will inform the rounding hospitlaist Dr. Tam in AM.
--- NOTE | 2017-09-19 08:34 | Death Note ---
Discharge Sum: Summary - Date and Time Date of admission: 09/11/17 10:21 Date of : 09/18/17 Time of : 10:05 - Summary Details: 72-year-old female patient with history of cardiomyopathy, coronary artery disease, diabetes, gastroesophageal reflux disease, hyperlipidemia and hypertension, previous AR and renal disease was hospitalized here from half-way facility due to complaints of altered mental status last for 2 days. Also suspected to be due to underlying urinary tract infection and pneumonia. Initial workup in the ER showed bilateral lower lung air space disease concerning for pneumonia and pulmonary edema. She was started on broad- spectrum antibiotics and her renal function was closely monitored. During the course of his stay here patient has had waxing and waning levels of consciousness where she would improve for a few hours and be awake enough to eat but remained confused and disoriented. Her renal function continued to worsen and patient became oliguric. Nephrology was following and recommended starting the patient on hemodialysis. Her blood cultures came back positive for Escherichia coli and so did her urine culture. This was ESBL producing. Patient's antibiotics were changed to cover for this and she has been receiving ertapenem since then. Orthopedics was consulted as she had recently undergone left shoulder surgery for a left proximal humerus fracture. Per their evaluation of the patient, they did not suspect septic joint. Repeat blood cultures have been negative. She had completed treatment for pneumonia and was most recently only on one antibiotic. Per discussion with family, and nephrology recommendations, patient was started on dialysis on 09/17/17 after placement of tunneled dialysis catheter. Patient appeared to tolerate dialysis well on that day but remained increasingly confused and was not waking up to verbal commands but did withdraw to pain. A CT scan of the head done in on that day did not show any acute abnormalities but showed chronic microvascular ischemic changes. As she remained confused on 09/18/17, an EEG and MRI of the brain was obtained. Patient also was having apneic spells throughout the day and family was called in and made aware of this. Patient was already DNR [facility]/DNI per patient's previous request. Palliative care was also consulted to discuss goals of care with the patient's family in case she continued to deteriorate. During dialysis on 09/18/17, patient had more apneic spells. Dialysis was therefore stopped prematurely and patient was sent back to her room. Her vital signs remained stable all through the day. Her saturation also remained stable. Her breathing seemed to improve later in the day and patient underwent EEG and MRI of the brain. MRI of the brain showed no acute intracranial abnormality and confirm the presence of moderate chronic white matter microvascular ischemic changes. Family was made aware of this. ABG done here yesterday showed a pH of 7.32 with a PaO2 of 81 and PCO2 of 55 on 40% FI O2. Patient condition continued to deteriorate through the evening and her breathing became more shallow. Family was present at bedside. Patient's respirations ceased at 2205 and she was pronounced at 2210. Attending physician was notified. - Additional Data Confirmation of as documented by pronouncing clinician: no pulse, no respirations, no heart sounds Family: at bedside Attending/PCP notified?: Yes Attending physician: Cleveland Tam MD Was code activated?: No Discharge Sum: Diag - PCOD Probable Cause of : Cardiorespiratory arrest - Contributing Factors (1) Acute respiratory failure with hypoxia Acute respiratory failure due to pneumonia and pulmonary edema (2) Encephalopathy acute Toxic metabolic encephalopathy due to acute renal failure and acute respiratory failure along with underlying urinary tract infection and pneumonia (3) Acute renal failure Started on hemodialysis (4) Bacteremia With ESBL Escherichia coli Discharge Sum: Prov - Provider Primary care physician: Aureliano Horton MD Admitting clinician: Bashir Newell Attending physician on admission: Bashir Newell Consults: 09/14/17 08:02 Consult to Nephrology [CONS] Routine Consulting Provider: Ubaldo Hendrix Reason for Consult: LOUANN/CKD from sepsis, baseline cr 1.5. Call Completed: Yes 09/14/17 10:02 Consult to Speech Therapy [CONS] Routine Comment: Evaluate, develop and implement POC Reason for Consult: Assess aspiration risk- determine if barium swallow is needed Call Completed: Yes 09/14/17 10:33 Consult to Orthopedic Surgery [CONS] Routine Consulting Provider: [facility] Reason for Consult: sepsis, rule out possibly infected joint. Call Completed: Yes 09/17/17 08:06 Consult to Interventional Radiology [CONS] Routine Consulting Provider: Radiology [facility] Reason for Consult: place temporary IJ dialysis catheter Time Notified: 08:06 Call Completed: No 09/17/17 08:15 Consult to Dialysis [CONS] ONCE 09/18/17 08:15 Consult to Dialysis [CONS] ONCE 09/18/17 12:55 Consult to Interpret Exam [CONS] Routine Consulting Provider: Rach Ledbetter I Consult to Interpret Exam: Interpret EEG 09/18/17 13:53 Consult to Palliative Care [CONS] Routine Comment: Consulting Provider: Palliative Care Lita Reason for Consult: Goals of care and counseling Call Completed: Yes Pronouncing clinician: Brandon Ash
== END 2017-09-18 22:05 | disposition expired | DRG 871 ==
LOC: EMEROO 18:42 → 3BNU 18:42 → SUATTDRO 09-11 10:21 → 2ANU 09-14 12:43
PROVIDERS: ADMIT Nurse Practitioner Family; ATTEND Internal Medicine